=== PATIENT | male | born 1965 | race Caucasian/White ===

== ENCOUNTER → 2022-05-31 06:54 | Outpatient (CLI) | payer MEDICARE, MEDICAID, SELFPAY | PROVIDERS: PCP Nurse Practitioner Family; Visit Provider Nurse Practitioner Family | DX: R32 Unspecified urinary incontinence (principal) | CPT/HCPCS: 87086 ==

== ENCOUNTER → 2022-09-13 23:16 | Outpatient (CLI) | payer MEDICARE, MEDICAID, SELFPAY ==
[2022-09-13 17:49] LABS: Alanine Aminotransferase 15 U/L (12-78); Albumin Level 4.2 g/dl (3.5-5.0); Albumin/Globulin Ratio 1.5 (1.1-1.8); Alkaline Phosphatase 75 U/L (38-126); Anion Gap 12.7 mEq/L (5-15); Aspartate Amino Transferase 26 U/L (17-59); Bilirubin,Total 0.3 mg/dl (0.2-1.3); Blood Urea Nitrogen 16 mg/dl (9-20); Calcium 8.6 mg/dl (8.4-10.2); Carbon Dioxide 29 mmol/L (22.0-30.0); Chloride 103 mmol/L (98-107); Estimated Glomerular Filt Rate 140 ml/min (>60); GFR (African American) 170 ML/MIN (>60); Globulin 2.8 g/dL (1.3-3.2); Glucose 83 mg/dl (74-100); Potassium 3.7 mmoL/L (3.5-5.1); Sodium 141 mmol/L (136-145)
[2022-09-13 18:58] LABS: Basophils % 0.4 % (0.1-2.0); Eosinophils # 0.2 K/mm3 (0.0-0.4); Eosinophils % 3.1 % (0.1-12.0); Hematocrit 39.8 % (42.0-52.0); Hemoglobin 12.9 g/dL (14.1-18.0); Lymphocytes # 2.5 K/mm3 (0.7-4.5); Lymphocytes % 34.3 % (10-50); Mean Corpuscular HGB Conc 32.5 g/dL (31.8-35.4); Mean Corpuscular Hemoglobin 28.8 pg (27.0-31.2); Mean Corpuscular Volume 88.5 fl (80-94); Mean Platelet Volume 9.2 fl (7.4-10.4); Monocytes # 0.4 K/mm3 (0.1-1.0); Monocytes % 6.1 % (1.7-9.3); Neutrophils # 4.1 K/mm3 (1.8-7.8); Neutrophils % 56.2 % (37.0-80.0); Platelet Count 211 K/mm3 (142-424); Red Cell Distribution Width 14.5 % (11.5-17.5); White Blood Count 7.3 K/mm3 (4.8-10.8)
== END ==
PROVIDERS: PCP Family Medicine; Visit Provider Family Medicine
DX: Z01.818 Encounter for other preprocedural examination (principal)
CPT/HCPCS: 80053; 85025

== ENCOUNTER → 2023-02-27 11:53 | Outpatient (CLI) | payer MEDICARE, MEDICAID, SELFPAY ==
--- NOTE | 2023-02-27 11:58 | XR_ITS ---
FINAL REPORT CLINICAL HISTORY: left arm pain fell satur FINDINGS: Left shoulder Three views were obtained. There is a nondisplaced fracture of the distal 3rd clavicle. There is inferior subluxation of the humerus. Mild degenerative changes are present. There are chronic calcifications adjacent to the glenoid. IMPRESSION: Fracture as above. Reviewed, Interpreted and Dictated by Sami Puga III, MD Transcribed by Meghan Watkins Authenticated and [facility]
--- NOTE | 2023-02-27 11:58 | XR_ITS ---
FINAL REPORT CLINICAL HISTORY: left arm pain fell Saturday FINDINGS: Left elbow Four views were obtained. There is no acute fracture or dislocation. The joint spaces appear normal. No joint effusion is identified. No soft tissue abnormality is identified. IMPRESSION: No acute process. Reviewed, Interpreted and Dictated by Sami Puga III, MD Transcribed by Meghan Watkins Authenticated and [facility]
--- NOTE | 2023-02-27 11:58 | XR_ITS ---
FINAL REPORT CLINICAL HISTORY: left arm pain fell saturday FINDINGS: Left humerus Two views were obtained. Again identified is a fracture of the distal 3rd clavicle. There are mild degenerative changes of the shoulder and elbow. There is inferior subluxation of the humerus at the glenohumeral joint. IMPRESSION: Fracture as above. Reviewed, Interpreted and Dictated by Sami Puga III, MD Transcribed by Meghan Watkins Authenticated and [facility]
== END ==
PROVIDERS: PCP Family Medicine; Visit Provider Family Medicine
DX: M79.602 Pain in left arm (principal)
CPT/HCPCS: 73030; 73060; 73080

== ENCOUNTER → 2023-04-18 10:20 | Outpatient (CLI) | payer MEDICARE, MEDICAID, SELFPAY ==
--- NOTE | 2023-04-18 10:26 | XR_ITS ---
FINAL REPORT CLINICAL HISTORY: possible asspiration FINDINGS: TWO-VIEW CHEST The heart size is normal. The mediastinum is normal. There is minimal scarring in the right infrahilar region. There is no pneumothorax. IMPRESSION: No acute cardiopulmonary process. Reviewed, Interpreted and Dictated by Lopez Colorado MD Transcribed by Meghan Watkins Authenticated and [facility]
--- NOTE | 2023-04-18 10:26 | XR_ITS ---
FINAL REPORT CLINICAL HISTORY: Left clavicle fx COMPARISON: 02/27/2023 FINDINGS: 2 views of the left clavicle were obtained. There is persistent fracture deformity of the distal left clavicle. There is abundant callus formation now, particularly along the superior margin of the fracture. The acromioclavicular and glenohumeral joints appear intact. There is no soft tissue abnormality. IMPRESSION: Healing distal clavicle fracture with exuberant callus formation. Reviewed, Interpreted and Dictated by Lopez Colorado MD Transcribed by Naya Vazquez Authenticated and [facility]
--- NOTE | 2023-04-18 10:26 | XR_ITS ---
FINAL REPORT CLINICAL HISTORY: left shoulder pain FINDINGS: Left shoulder Three views were obtained. There is a mildly displaced vertical fracture of the distal clavicle. The AC joint is intact. There is widening of the subacromial space which may be due to a small joint effusion. IMPRESSION: Mildly displaced fracture of the distal clavicle. Reviewed, Interpreted and Dictated by Lopez Colorado MD Transcribed by Meghan Watkins Authenticated and [facility] [place]
== END ==
LOC: RAD 10:22
PROVIDERS: PCP Family Medicine; Visit Provider Orthopaedic Surgery
DX: T17.928A Food in respiratory tract, part unspecified causing other injury, initial encounter (principal); W44.F3XA Food entering into or through a natural orifice, initial encounter; S42.002A Fracture of unspecified part of left clavicle, initial encounter for closed fracture; M25.512 Pain in left shoulder
CPT/HCPCS: 71046; 73000; 73030

== ENCOUNTER → 2023-04-26 14:14 | Outpatient (CLI) | payer MEDICARE, MEDICAID, SELFPAY ==
--- NOTE | 2023-04-26 14:15 | CT_ITS ---
FINAL REPORT CLINICAL HISTORY: Encephalopathy FINDINGS: Axial images of the head were obtained without contrast. Coronal reformatted images were also obtained.This study was performed with techniques to keep radiation doses as low as reasonably achievable (ALARA). Individualized dose reduction techniques using automated exposure control or adjustment of mA and/or kV according to the patient's size were employed. Motion artifact on many of the images decreases the sensitivity. The ventricles are normal. There is no evidence of hemorrhage. There is no definite acute intracranial abnormality. IMPRESSION: Significantly limited exam. No gross abnormality identified. Reviewed, Interpreted and Dictated by Sami Puga III, MD Transcribed by Meghan Watkins Authenticated and [facility]
[2023-04-26 15:27] LABS: Basophils % 0.3 % (0.1-2.0); Eosinophils # 0.2 K/mm3 (0.0-0.4); Eosinophils % 1.3 % (0.1-12.0); Hematocrit 38.1 % (37.0-47.0); Hemoglobin 12.8 g/dL (12.2-16.2); Lymphocytes # 2.6 K/mm3 (0.7-4.5); Mean Corpuscular HGB Conc 33.6 g/dL (31.8-35.4); Mean Corpuscular Hemoglobin 29.2 pg (27.0-31.2); Mean Corpuscular Volume 86.9 fl (81-99); Mean Platelet Volume 8.3 fl (7.4-10.4); Monocytes # 0.8 K/mm3 (0.1-1.0); Monocytes % 7.1 % (1.7-9.3); Neutrophils # 7.7 K/mm3 (1.8-7.8); Neutrophils % 68.3 % (37.0-80.0); Platelet Count 188 K/mm3 (142-424); Red Blood Count 4.38 M/mm3 (4.20-5.40); Red Cell Distribution Width 14.5 % (11.5-17.5); White Blood Count 11.3 K/mm3 (4.8-10.8)
[2023-04-26 15:51] LABS: Chloride 105 mmol/L (98-107); Potassium 3.8 mmoL/L (3.5-5.1); Sodium 140 mmol/L (136-145)
[2023-04-26 17:11] LABS: Alanine Aminotransferase 13 U/L (12-78); Albumin Level 4.2 g/dl (3.5-5.0); Albumin/Globulin Ratio 1.4 (1.1-1.8); Alkaline Phosphatase 82 U/L (38-126); Anion Gap 12.8 mEq/L (5-15); Aspartate Amino Transferase 22 U/L (14-36); Bilirubin,Total 0.4 mg/dl (0.2-1.3); Blood Urea Nitrogen 10 mg/dl (7-17); Calcium 8.5 mg/dl (8.4-10.2); Carbon Dioxide 26 mmol/L (22.0-30.0); Estimated Glomerular Filt Rate 104 ml/min (>60); GFR (African American) 126 ML/MIN (>60); Globulin 2.9 g/dL (1.3-3.2); Glucose 99 mg/dl (74-100); Total Protein,Serum 7.1 g/dl (6.3-8.2)
[2023-04-26 17:42] LABS: Thyroid Stimulating Hormone 1.59 uIU/mL (0.465-4.68)
[2023-04-26 18:18] LABS: Vitamin B12 584 pg/mL (239-931)
[2023-04-26 18:27] LABS: Folate 8.24 ng/mL
[2023-04-26 18:33] LABS: Iron 20 ug/dL (37-170)
[2023-04-26 19:06] LABS: Total Iron Binding Capacity 233 ug/dL (265-497)
[2023-04-26 19:10] LABS: Ferritin 135 ng/ml (11.1-264)
== END ==
PROVIDERS: PCP Family Medicine; Visit Provider Nurse Practitioner Family
DX: G93.49 Other encephalopathy (principal); R53.83 Other fatigue; D51.9 Vitamin B12 deficiency anemia, unspecified
CPT/HCPCS: 36415; 70450; 80053; 82607; 82728; 82746; 83540; 83550; 84443; 85025

== ENCOUNTER → 2023-05-15 10:55 | Outpatient (CLI) | payer MEDICARE, MEDICAID, SELFPAY ==
--- NOTE | 2023-05-15 11:25 | XR_ITS ---
FINAL REPORT CLINICAL HISTORY: constipation FINDINGS: ABDOMEN SINGLE VIEW There is a nonspecific, nonobstructive bowel gas pattern. No bowel dilation is identified. There are gallstones in the right upper quadrant measuring up to 2.1 cm. A moderate amount of retained stool is seen throughout the colon. IMPRESSION: Moderate stool burden. Gallstones. Reviewed, Interpreted and Dictated by Lopez Colorado MD Transcribed by Meghan Watkins Authenticated and [facility]
[2023-05-15 11:26] LABS: Basophils % 0.3 % (0.1-2.0); Eosinophils # 0.2 K/mm3 (0.0-0.4); Eosinophils % 1.9 % (0.1-12.0); Hematocrit 41.3 % (37.0-47.0); Hemoglobin 13.8 g/dL (12.2-16.2); Lymphocytes # 1.7 K/mm3 (0.7-4.5); Lymphocytes % 17.6 % (10-50); Mean Corpuscular HGB Conc 33.4 g/dL (31.8-35.4); Mean Corpuscular Hemoglobin 28.9 pg (27.0-31.2); Mean Corpuscular Volume 86.6 fl (81-99); Mean Platelet Volume 8.1 fl (7.4-10.4); Monocytes # 0.5 K/mm3 (0.1-1.0); Monocytes % 4.8 % (1.7-9.3); Neutrophils # 7.4 K/mm3 (1.8-7.8); Neutrophils % 75.3 % (37.0-80.0); Platelet Count 211 K/mm3 (142-424); Red Blood Count 4.77 M/mm3 (4.20-5.40); Red Cell Distribution Width 14.3 % (11.5-17.5); White Blood Count 9.9 K/mm3 (4.8-10.8)
[2023-05-15 12:08] LABS: Alanine Aminotransferase 12 U/L (12-78); Albumin Level 4.5 g/dl (3.5-5.0); Albumin/Globulin Ratio 1.5 (1.1-1.8); Alkaline Phosphatase 83 U/L (38-126); Anion Gap 9.6 mEq/L (5-15); Aspartate Amino Transferase 23 U/L (14-36); Bilirubin,Total 0.4 mg/dl (0.2-1.3); Blood Urea Nitrogen 12 mg/dl (7-17); Calcium 8.6 mg/dl (8.4-10.2); Carbon Dioxide 29 mmol/L (22.0-30.0); Chloride 104 mmol/L (98-107); Estimated Glomerular Filt Rate 87 ml/min (>60); GFR (African American) 105 ML/MIN (>60); Glucose 81 mg/dl (74-100); Potassium 3.6 mmoL/L (3.5-5.1); Sodium 139 mmol/L (136-145); Total Protein,Serum 7.5 g/dl (6.3-8.2)
== END ==
LOC: LAB 10:57
PROVIDERS: PCP Family Medicine; Visit Provider Family Medicine
DX: K59.00 Constipation, unspecified (principal)
CPT/HCPCS: 36415; 74018; 80053; 85025

== ENCOUNTER 2023-05-23 08:08 | Outpatient (CLI) | payer MEDICARE, MEDICAID, SELFPAY ==
--- NOTE | 2023-05-23 08:19 | US_ITS ---
FINAL REPORT CLINICAL HISTORY: Gallstones COMPARISON: None FINDINGS: Sonographic images of the right upper quadrant were obtained. The pancreas is partially obscured. There is a hyperechoic focus in the left hepatic lobe which measures 1.3 cm in greatest diameter and is of uncertain etiology. Multiple gallstones are present in the gallbladder. There is no evidence of biliary ductal dilatation.The common duct measures 2 mm. Limited images of the right kidney are unremarkable. IMPRESSION: Gallstones are present, without evidence of biliary ductal dilatation. 1.3 cm hyperechoic focus in the left hepatic lobe, of uncertain etiology but may represent a hemangioma or a region of focal fatty infiltration. If indicated, CT with contrast would be helpful for further evaluation. Reviewed, Interpreted and Dictated by Sami Puga III, MD Transcribed by Lakeisha Beltrán Authenticated and [facility]
== END 2023-05-23 23:59 ==
PROVIDERS: PCP Family Medicine; Visit Provider Surgery
DX: K80.20 Calculus of gallbladder without cholecystitis without obstruction (principal)
CPT/HCPCS: 76705

== ENCOUNTER 2023-08-31 07:58 | Emergency (ER) | payer MEDICARE, MEDICAID, SELFPAY ==
[2023-08-31 08:00] VITALS: BP 179/136; PULSE 103; RESP 13; TEMP 36.8; O2SAT 95; BMI 27.3
[2023-08-31 08:29] VITALS: BP 179/136
--- NOTE | 2023-08-31 08:37 | ED_ITS ---
Discharge Plan Disposition Patient Disposition: Home, Self-Care Prescriptions Prescriptions: No Action hydrocortisone acetate [Anusol-HC] 25 mg suppository 25 mg MN BID PRN hydroxyzine HCl 50 mg tablet 50 mg PO BID 90 Days Qty: 180 0RF sertraline 100 mg tablet 200 mg PO DAILY Qty: 180 0RF trazodone 50 mg tablet 50 mg PO HS Qty: 90 0RF oxcarbazepine [Trileptal] 300 mg tablet 300 mg PO BID Qty: 180 0RF valacyclovir 1 gram tablet 1,000 mg PO BID Qty: 20 0RF loratadine 10 mg tablet 10 mg PO DAILY Patient Comments: TAKE 1 TABLET BY MOUTH EVERY DAY fluticasone propionate 50 mcg/actuation spray,suspension intranasal Patient Comments: USE 2 PUFFS IN EACH NOSTRIL EVERY DAY bisacodyl 10 mg suppository 10 mg MN DAILY PRN (Reason: constipation) Qty: 12 0RF acyclovir 5 % ointment 1 applic topical 6XD Qty: 5 2RF polyethylene glycol 3350 [Miralax] 17 gram/dose powder 17 g PO DAILY Qty: 510 0RF clonazepam 2 mg tablet 4 mg PO BID Qty: 120 2RF Referrals Follow up/Referrals: Walt Howell MD [Primary Care Provider] - See instructions Activity Restrictions/Add. Instructions Additional Instructions/Restrictions: Call Dr. Goldman's office for appointment on 09/02 for follow up and consideration for cholecystectomy (gallbladder removal). Call your family doctor to establish care for this visit to the emergency department and schedule follow-up within 48 hours to ensure improvement. If you have any worsening of your condition or any other concerning signs or symptoms, return to the emergency department or your primary care doctor for further evaluation. 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 Patient is on an medications will her behavioral outbursts, and patient, at baseline, intermittently calls out. For the past 2 or 3 days, family states that patient has been more aggressive, in her verbal outbursts. Patient's family also states patient has been having numerous episodes of urinary incontinence whether at night, during the day, does not matter. Talk to family doctor, family doctor recommended coming to the emergency department. No fevers, vomiting, changes in mental status, rash, color, breathing, or tone. Please note that above description of symptoms, in this electronic medical record under categorization of recalled from ER triage doctor by RN are reflective of an initial nursing assessment, however, is not reflective of my full history and physical exam that was personally taken and clarified. Consequentially, this preceding description of symptoms, which may include the patient's categorized chief complaint in the EMR, do not reflect my personal clinical impression, and the ultimate description of history of present illness and patient stated complaints should be deferred to this section of the note. Unless stated otherwise or congruent with this section of the note, additional signs, symptoms, or incongruence should be interpreted as inaccurate with my clinical impression. Related Data Home Medications Medication Instructions Recorded Confirmed fluticasone propionate 50 g intranasal 04/04/22 07/12/23 mcg/actuation nasal spray,suspension loratadine 10 mg tablet 10 mg PO DAILY 04/04/22 07/12/23 hydrocortisone acetate 25 mg 25 mg MN BID PRN 06/19/23 07/12/23 rectal suppository (Anusol-HC) Previous Rx's Medication Instructions Recorded bisacodyl 10 mg rectal suppository 10 mg MN DAILY PRN constipation 05/10/23 #12 ea acyclovir 5 % topical ointment 1 applic topical 6XD #5 grams 06/28/23 valacyclovir 1 gram tablet 1,000 mg PO BID #20 tabs 06/28/23 polyethylene glycol 3350 17 17 g PO DAILY constipation #510 07/01/23 gram/dose oral powder (Miralax) grams hydroxyzine HCl 50 mg tablet 50 mg PO BID 90 days #180 tabs 07/11/23 oxcarbazepine 300 mg tablet 300 mg PO BID #180 tabs 07/11/23 (Trileptal) sertraline 100 mg tablet 200 mg (2 x 100 mg) PO DAILY #180 07/11/23 tabs trazodone 50 mg tablet 50 mg PO HS #90 tabs 07/11/23 clonazepam 2 mg tablet 4 mg (2 x 2 mg) PO BID #120 tabs 08/26/23 Allergies Allergy/AdvReac Type Severity Reaction Status Date / Time aspirin AdvReac Adan's Verified 06/28/23 11:33 syndrome PFSH PFS Disclaimer: The information contained in this section may have been updated after the patient was seen, as this information can be updated by other users. Medical History Aspiration of food Autism Chronic static encephalopathy Surgical History History of dental surgery Family History Father Diabetes Heart attack Kidney disease Stroke Mother Diabetes Grandmother Diabetes Grandfather Diabetes Social History Smoking Status: Never smoker alcohol intake: never substance use type: denies use current occupational status: disabled Travel in the last 8 weeks: None household members: other details: sister housing: house ROS Obtained: Yes All systems reviewed & no additional complaints except as documented Physical Exam General General appearance: alert Head Head exam: atraumatic and normocephalic Eye Eye exam: Present normal appearance, PERRL and EOMI ENT ENT exam: Present mucous membranes moist and TM's normal bilaterally Neck Neck exam: Present normal inspection, full ROM and trachea midline Respiratory Respiratory exam: Present normal lung sounds bilaterally; Absent respiratory distress, wheezes, stridor, accessory muscle use or prolonged expiratory phase Cardiovascular Cardiovascular exam: Present regular rate and normal rhythm Abdominal Exam Abdominal exam: Present soft and tenderness (difficult to discern due to intermittent verbal outbursts); Absent distention, guarding, rebound or rigidity Extremities Exam Extremities exam: Absent edema Neurological Exam Neurological exam: Present alert and CN II-XII intact Skin Skin exam: Present warm and dry; Absent diaphoresis or erythema Lymphatic Lymphatic Findings: no adenopathy Medical Decision Making Medical Records Medical records reviewed: Yes I reviewed the patient's medical records. Damien Inquiry Pt receiving controlled substance: No Damien was queried for this patient: No Vital Signs: 08/31/23 08:00 08/31/23 08:29 08/31/23 08:47 Temperature 98.2 F Temperature Source Temporal Artery Scan Pulse Rate [Left Radial] 103 H Respiratory Rate 13 Blood Pressure 179/136 H 144/89 H Blood Pressure [Right Arm] 179/136 H Blood Pressure Mean 149 107 Blood Pressure Mean [Right Arm] 150 02 Sat by Pulse Oximetry 95 Oxygen Delivery Method Room Air Lab Data Lab Results 08/31/23 08:11: WBC Cancelled, Corrected WBC Cancelled, RBC Cancelled, Hgb Cancelled, Hct Cancelled, MCV Cancelled, MCH Cancelled, MCHC Cancelled, RDW Cancelled, Plt Count Cancelled, MPV Cancelled, Neut % (Auto) Cancelled, Lymph % (Auto) Cancelled, Foard % (Auto) Cancelled, Eos % (Auto) Cancelled, Baso % (Auto) Cancelled, Neut # (Auto) Cancelled, Lymph # (Auto) Cancelled, Foard # (Auto) Cancelled, Eos # (Auto) Cancelled, Baso # (Auto) Cancelled, Sodium Cancelled, Potassium Cancelled, Chloride Cancelled, Carbon Dioxide Cancelled, Anion Gap Cancelled, BUN Cancelled, Creatinine Cancelled, Estimated Creat Clear Cancelled, Estimated GFR Cancelled, Est GFR ( Amer) Cancelled, Glucose Cancelled, Calcium Cancelled, Total Bilirubin Cancelled, AST Cancelled, ALT Cancelled, Alkaline Phosphatase Cancelled, Total Protein Cancelled, Albumin Cancelled, Globulin Cancelled, Albumin/Globulin Ratio Cancelled 08/31/23 08:54: WBC 10.0, RBC 4.69, Hgb 13.6, Hct 43.4, MCV 92.6, MCH 29.1, MCHC 31.4 L, RDW 15.2, Plt Count 180, MPV 7.9, Neut % (Auto) 74.3, Lymph % (Auto) 17.0, Foard % (Auto) 6.6, Eos % (Auto) 1.2, Baso % (Auto) 0.9, Neut # (Auto) 7.4, Lymph # (Auto) 1.7, Foard # (Auto) 0.7, Eos # (Auto) 0.1, Baso # (Auto) 0.1, Sodium 141, Potassium 3.7, Chloride 106, Carbon Dioxide 30, Anion Gap 8.7, BUN 14, Creatinine 0.70, Estimated Creat Clear 91, Estimated GFR 87, Est GFR ( Amer) 105, Glucose 94, Lactate 1.1, Calcium 9.5, Total Bilirubin 0.5, AST 34, ALT 24, Alkaline Phosphatase 89, Total Protein 7.4, Albumin 4.4, Globulin 3.0, Albumin/Globulin Ratio 1.5, Lipase 55, Urine Color Yellow, Urine Appearance Clear, Urine pH 6.0, Ur Specific [place] 1.020, Urine Protein Negative, Urine Glucose (UA) Negative, Urine Ketones Negative, Urine Blood Trace-i, Urine Nitrate Negative, Urine Bilirubin Negative, Urine Urobilinogen 0.2, Ur Leukocyte Esterase Negative, Urine RBC 5-10, Urine WBC 3-5, Ur Squamous Epith Cells 3-5, Urine Bacteria 1+, Urine Mucus 3+ 08/31/23 08:54 08/31/23 08:54 Orders (Tests/Meds): ORDERS Category Date Time Status POCUS Point of Care (ER Only) Stat Exams 08/31/23 09:21 Ordered Complete Blood Count Auto Diff Stat Lab 08/31/23 08:54 Completed Comprehensive Metabolic Panel Stat Lab 08/31/23 08:54 Completed Lactic Acid Stat Lab 08/31/23 08:54 Completed Lipase Stat Lab 08/31/23 08:54 Completed UA [Urinalysis and Microscopic] Stat Lab 08/31/23 08:54 Completed Medical Decision Narrative: Is a 52-year-old female 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 Patient is on an medications will her behavioral outbursts, and patient, at baseline, intermittently calls out. For the past 2 or 3 days, family states that patient has been more aggressive, in her verbal outbursts. Patient's family also states patient has been having numerous episodes of urinary incontinence whether at night, during the day, does not matter. Talk to family doctor, family doctor recommended coming to the emergency department. No fevers, vomiting, changes in mental status, rash, color, breathing, or tone. H&P noted the patient does have chronic encephalopathy which is complicating clinical picture and care. History was obtained via conversation with patient's family. On arrival, patient hemodynamically stable, alert, intermittently having verbal outbursts, but appears comfortable, moving all extremities spontaneously, pupils equal and reactive to light. Full physical exam performed and significant for well- appearing patient. Not acutely ill. Intermittently having verbal outbursts. No cough, fever, lymphadenopathy. TMs are clear bilaterally, no pharyngeal erythema, no lymphadenopathy, lungs are clear to auscultation, abdomen is soft, nontender, nondistended, no evidence of peritonitis, but difficult to truly ascertain tenderness due to intermittent verbal outburst. Not having outbursts in any 1 spot in particular. No overlying skin changes, no rash, overall well- appearing. Differential includes urinary tract infection, cholecystitis, . Workup independently interpreted and significant for nonactionable CBC or chemistry. Urinalysis negative. Bedside [id number] ultrasound without acute concern for cholecystitis, but patient does have 1.5 cm stone, upper limit of normal gallbladder wall. No secondary signs of cholecystitis. Duct normal. On reevaluation, patient walking around the room, appropriate, does not appear to be in any acute distress. General surgery on-call was contacted and case was discussed at length. He had seen patient in the past, family is not pursuing cholecystectomy at that time, but in light of recent events, considering strongly now. I feel this is appropriate. Interactive discussion had, patient to see general surgery next week for follow-up. On further conversation, is also revealed the patient has had numerous changes and her daily life including staff changes, toys, and other things, which could have likely exacerbated patient's emotional changes and outbursts, as these changes in her behavior started right around the time that the life changes occurred. Because patient at baseline without signs or symptoms of clinical decompensation, deemed appropriate for discharge. Results were relayed to patient family who voiced understanding and were agreeable to outpatient management and follow up. I discussed my clinical impression with patient family and answered all questions. At this time, the evidence for any other entities in the differential is insufficient to warrant any further testing or ED observation. This was explained as well. Advisory was given that persistent or worsening symptoms require further evaluation. I confirmed the understanding of this discussion. Critical Care Critical Care Time Critical Care Time: No
[2023-08-31 08:47] VITALS: BP 144/89
[2023-08-31 09:05] LABS: Microscopic, Urine URINE MICROSCOPIC (MICROSCOPIC)
[2023-08-31 09:06] LABS: Basophils # 0.1 K/mm3 (0-0.2); Basophils % 0.9 % (0.1-2.0); Eosinophils # 0.1 K/mm3 (0.0-0.4); Eosinophils % 1.2 % (0.1-12.0); Hematocrit 43.4 % (37.0-47.0); Hemoglobin 13.6 g/dL (12.2-16.2); Lymphocytes # 1.7 K/mm3 (0.7-4.5); Mean Corpuscular HGB Conc 31.4 g/dL (31.8-35.4); Mean Corpuscular Hemoglobin 29.1 pg (27.0-31.2); Mean Corpuscular Volume 92.6 fl (81-99); Mean Platelet Volume 7.9 fl (7.4-10.4); Monocytes # 0.7 K/mm3 (0.1-1.0); Monocytes % 6.6 % (1.7-9.3); Neutrophils # 7.4 K/mm3 (1.8-7.8); Neutrophils % 74.3 % (37.0-80.0); Platelet Count 180 K/mm3 (142-424); Red Blood Count 4.69 M/mm3 (4.20-5.40); Red Cell Distribution Width 15.2 % (11.5-17.5)
[2023-08-31 09:09] LABS: Appearance,Urine CLEAR (Clear); Bilirubin,Urine Negative (Negative); Blood, Urine TRACE-I (Negative); Color,Urine YELLOW (Yellow); Glucose,Urine (UA) Negative (Negative); Ketones,Urine Negative (Negative); Leukocyte Esterase,Urine Negative (Negative); Nitrate,Urine Negative (Negative); Protein,Urine Negative (Negative); Urobilinogen,Urine 0.2 EU/dl (0.2)
[2023-08-31 09:15] LABS: Chloride 106 mmol/L (98-107); Sodium 141 mmol/L (136-145)
[2023-08-31 09:16] LABS: Potassium 3.7 mmoL/L (3.5-5.1)
[2023-08-31 09:18] LABS: Alanine Aminotransferase 24 U/L (12-78); Albumin Level 4.4 g/dl (3.5-5.0); Albumin/Globulin Ratio 1.5 (1.1-1.8); Alkaline Phosphatase 89 U/L (38-126); Anion Gap 8.7 mEq/L (5-15); Aspartate Amino Transferase 34 U/L (14-36); Bilirubin,Total 0.5 mg/dl (0.2-1.3); Blood Urea Nitrogen 14 mg/dl (7-17); Calcium 9.5 mg/dl (8.4-10.2); Carbon Dioxide 30 mmol/L (22.0-30.0); Creatinine Clearance Estimated 91 mL/min (50-200); Estimated Glomerular Filt Rate 87 ml/min (>60); GFR (African American) 105 ML/MIN (>60); Glucose 94 mg/dl (74-100); Lactic Acid 1.1 mmol/L (0.7-2.1); Total Protein,Serum 7.4 g/dl (6.3-8.2)
[2023-08-31 09:33] LABS: Lipase 55 U/L (23-300)
[2023-08-31 09:35] LABS: Mucus,Urine 3+ /lpf
[2023-08-31 09:38] LABS: Bacteria,Urine 1+ /lpf
[2023-08-31 10:00] VITALS: BP 144/89; PULSE 103; RESP 13; TEMP 36.8; O2SAT 98
== END 2023-08-31 10:02 | disposition home or self-care (01) ==
PROVIDERS: Emergency Provider Emergency Medicine; PCP Family Medicine
DX: K80.20 Calculus of gallbladder without cholecystitis without obstruction (principal); R10.9 Unspecified abdominal pain; R45.89 Other symptoms and signs involving emotional state; F79 Unspecified intellectual disabilities
CPT/HCPCS: 80053; 81001; 83605; 83690; 85025; 99284

== ENCOUNTER 2024-01-05 09:07 | Emergency (ER) | payer MEDICARE, MEDICAID, SELFPAY ==
[2024-01-05 09:11] VITALS: BP 131/86
[2024-01-05 09:14] VITALS: BP 131/86; PULSE 89; RESP 20; TEMP 36.7; O2SAT 96; BMI 25.4
--- NOTE | 2024-01-05 09:19 | PC.NURSE ---
Dr. Olson at [facility] for pt eval
--- NOTE | 2024-01-05 09:27 | CT_ITS ---
PROCEDURE INFORMATION: Exam: CT Chest With Contrast; Diagnostic Exam date and time: 01/05/2024 10:09 AM Age: 58 years old Clinical indication: Other: Not eating/drinking; Additional info: Nonverbal, not eating/drinking, decreased bm TECHNIQUE: Imaging protocol: Diagnostic computed tomography of the chest with contrast. Radiation optimization: All CT scans at this facility use at least one of these dose optimization techniques: automated exposure control; mA and/or kV adjustment per patient size (includes targeted exams where dose is matched to clinical indication); or iterative reconstruction. Contrast material: ISOVUE; Contrast volume: 80 ml; Contrast route: IV; COMPARISON: CR XR CHEST 2V 04/18/2023 10:35 AM FINDINGS: Lungs: Mild left basilar atelectasis. No consolidation. No masses. Pleural spaces: Unremarkable. No pneumothorax. No pleural effusion. Heart: Unremarkable. No cardiomegaly. No pericardial effusion. Lymph nodes: Unremarkable. No enlarged lymph nodes. Vasculature: Unremarkable. No aortic aneurysm. Diaphragm: Moderate size hiatal hernia. Bones/joints: Unremarkable. No acute fracture. Soft tissues: Unremarkable. IMPRESSION: Moderate size hiatal hernia.
--- NOTE | 2024-01-05 09:27 | CT_ITS ---
PROCEDURE INFORMATION: Exam: CT Abdomen And Pelvis With Contrast Exam date and time: 01/05/2024 10:09 AM Age: 58 years old Clinical indication: Constipation; Additional info: Nonverbal, not eating/drinking, decreased bm TECHNIQUE: Imaging protocol: Computed tomography of the abdomen and pelvis with contrast. Radiation optimization: All CT scans at this facility use at least one of these dose optimization techniques: automated exposure control; mA and/or kV adjustment per patient size (includes targeted exams where dose is matched to clinical indication); or iterative reconstruction. Contrast material: ISOVUE; Contrast volume: 80 ml; Contrast route: IV; COMPARISON: CR XR KUB 05/15/2023 11:43 AM FINDINGS: Diaphragm: Moderate size hiatal hernia. Liver: Small cyst or hemangioma in the right hepatic lobe measures 1.1 cm. Gallbladder and biliary ducts: Cholelithiasis with multiple large gallstones. No gallbladder wall thickening. Pancreas: Normal. No ductal dilation. Spleen: Normal. No splenomegaly. Adrenal glands: Normal. No mass. Kidneys and ureters: Normal. No hydronephrosis. Stomach and bowel: Negative for bowel obstruction. Appendix: No evidence of appendicitis. Intraperitoneal space: Unremarkable. No free air. No significant fluid collection. Vasculature: Unremarkable. No abdominal aortic aneurysm. Lymph nodes: Unremarkable. No enlarged lymph nodes. Urinary bladder: Unremarkable as visualized. Reproductive: Unremarkable as visualized. Bones/joints: Unremarkable. No acute fracture. Soft tissues: Unremarkable. IMPRESSION: 1. Cholelithiasis with multiple large gallstones. No gallbladder wall thickening. 2. Moderate size hiatal hernia. 3. Negative for bowel obstruction.
--- NOTE | 2024-01-05 09:32 | ED_ITS ---
Discharge Plan Disposition Patient Disposition: Home, Self-Care Condition: Good Prescriptions Prescriptions: New pantoprazole 40 mg tablet,delayed release (DR/EC) 40 mg PO DAILY Qty: 30 0RF No Action trazodone 50 mg tablet 50 mg PO HS Qty: 90 0RF loratadine 10 mg tablet 10 mg PO DAILY Patient Comments: TAKE 1 TABLET BY MOUTH EVERY DAY fluticasone propionate 50 mcg/actuation spray,suspension intranasal Patient Comments: USE 2 PUFFS IN EACH NOSTRIL EVERY DAY polyethylene glycol 3350 [Miralax] 17 gram/dose powder 17 g PO DAILY Qty: 510 0RF sertraline 100 mg tablet 200 mg PO DAILY Qty: 180 0RF acyclovir 5 % ointment See Rx Instructions .ROUTE .COMPLEX Qty: 15 1RF Dose Instruction: APPLY TO AFFECTED AREA(S) SIX TIMES A DAY Rx Instructions: APPLY TO AFFECTED AREA(S) SIX TIMES A DAY clonazepam 2 mg tablet 4 mg PO BID Qty: 120 2RF acyclovir 800 mg tablet 800 mg PO QID Qty: 60 2RF hydroxyzine HCl 50 mg tablet 50 mg PO BID 90 Days Qty: 180 0RF Referrals Follow up/Referrals: Sami Goldman MD [Staff Physician] - See instructions Walt Howell MD [Primary Care Provider] - See instructions Reginald Garcia MD [Staff Physician] - See instructions Activity Restrictions/Add. Instructions Additional Instructions/Restrictions: This patient was evaluated in the emergency department today. At this time, workup is reassuring. She does persistently still have gallstones, however no evidence of acute gallbladder infection. This certainly could cause pain and poor appetite, so I would recommend close follow-up with general surgery for further evaluation and management. She also has a small hiatal hernia, which can cause acid reflux type symptoms and indigestion. This also could cause poor appetite. Given this, we are prescribing her a medication for stomach acid. 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 Follow-up very closely with her primary care provider for reassessment. Her full respiratory panel is pending at this time. Return to the emergency department for new or worsening symptoms. Clinical Impressions Clinical Impression: Gallstones, Poor appetite, Hiatal hernia Instructions Patient Instructions: DI for Hiatal Hernia, DI for Nausea -- Adult, DI for Poor Appetite Print Language Print Language: Sammarinese Discharge ED Provider: Tran Olson General Adult HPI General Chief complaint: Nausea/Vomiting/Diarrhea Stated complaint: unable to eat for a week Time Seen by Provider: 01/05/24 09:11 Mode of Arrival: Ambulatory Source of Information: Relative Limitations: Language Barrier Description of Symptoms (Recalled from ER Triage Doc. by RN): pt to ed accompanied by sister and [id number]. sister states pt has not been interested in food x1 week and has been spitting up. sister reports a decrease in bowel movements. sister reports to giving pt a laxative with no improvement of symptoms. pt is non-verbal. 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 According to the patient's sister and caregiver, she has not wanted to eat in the last 5 days. She initially was still drinking, but her oral intake of liquids is also decreased. They state it seems like she has an appetite and will ask for food, but she has had very little intake. They noted concern for decreased bowel movements and small amount of leakage of liquid brown stool, concerned that she could have a bowel blockage. No prior surgical abdominal history noted. She does have history of gallstones, for which she has been seen by general surgery and in the emergency department, but they elected not to pursue surgery, as the patient never had diagnosis of cholecystitis. Throughout this time, she has not had any fevers, obvious changes in her neuro/functional status/behavior, cough, congestion. She has had frequent spitting up, but no vomiting. They noted concern because she has a history of swallowing difficulty as well. For her chronic constipation, they do laxatives, enemas, suppositories at home but they have not been able to get her to have a good bowel movement Related Data Home Medications ?Medication ?Instructions ?Recorded ?Confirmed fluticasone propionate 50 g intranasal 04/04/22 09/20/23 mcg/actuation nasal spray,suspension loratadine 10 mg tablet 10 mg PO DAILY 04/04/22 09/20/23 Previous Rx's ?Medication ?Instructions ?Recorded trazodone 50 mg tablet 50 mg PO HS #90 tabs 07/11/23 polyethylene glycol 3350 17 17 g PO DAILY constipation #510 09/10/23 gram/dose oral powder (Miralax) grams sertraline 100 mg tablet 200 mg (2 x 100 mg) PO DAILY #180 11/15/23 tabs acyclovir 5 % topical ointment See Rx Instructions .Route 11/18/23 .COMPLEX #15 grams clonazepam 2 mg tablet 4 mg (2 x 2 mg) PO BID #120 tabs 11/26/23 acyclovir 800 mg tablet 800 mg PO QID #60 tabs 12/09/23 hydroxyzine HCl 50 mg tablet 50 mg PO BID 90 days #180 tabs 12/24/23 pantoprazole 40 mg tablet,delayed 40 mg PO DAILY #30 tabs 01/05/24 release Allergies Allergy/AdvReac Type Severity Reaction Status Date / Time aspirin AdvReac Adan's Verified 09/20/23 11:25 syndrome PFSH PFS Disclaimer: The information contained in this section may have been updated after the patient was seen, as this information can be updated by other users. Medical History Aspiration of food Chronic static encephalopathy Autism Surgical History History of dental surgery Family History Father Diabetes Heart attack Kidney disease Stroke Mother Diabetes Grandmother Diabetes Grandfather Diabetes Social History Smoking Status: Never smoker alcohol intake: never substance use type: denies use current occupational status: disabled Travel in the last 8 weeks: None household members: other details: sister housing: house ROS Obtained: Yes All systems reviewed & no additional complaints except as documented Physical Exam General General appearance: alert Comment: Groaning verbally, which family states is her normal stim Head Head exam: atraumatic and normocephalic Eye Eye exam: Present normal appearance, PERRL and EOMI ENT ENT exam: Present normal exam, normal oropharynx, mucous membranes moist and normal external ear exam Neck Neck exam: Present normal inspection, full ROM and trachea midline; Absent tenderness Chest Chest inspection: Present normal inspection and symmetric chest wall rise; Absent tenderness Respiratory Respiratory exam: Present normal lung sounds bilaterally; Absent respiratory distress, wheezes, stridor or accessory muscle use Cardiovascular Cardiovascular exam: Present regular rate and normal rhythm Abdominal Exam Abdominal exam: Present soft and distention (mild); Absent tenderness, guarding or rebound Extremities Exam Extremities exam: Present normal inspection, full ROM and normal capillary refill; Absent tenderness or edema Back Exam Back exam: Present normal inspection and full ROM; Absent tenderness Neurological Exam Neurological exam: Present alert and other (reportedly at her neurologic baseline); Absent motor sensory deficit Skin Skin exam: Present warm and dry Medical Decision Making Medical Records Medical records reviewed: Yes I reviewed the patient's medical records. Damien Inquiry Pt receiving controlled substance: No Vital Signs: 01/05/24 09:11 01/05/24 09:14 01/05/24 10:00 Temperature 98.1 F Temperature Source Oral Pulse Rate Pulse Rate [Left Radial] 89 Respiratory Rate 20 Blood Pressure 131/86 140/78 Blood Pressure [Right Arm] 131/86 Blood Pressure Mean 91 98 Blood Pressure Mean [Right Arm] 101 02 Sat by Pulse Oximetry 96 Oxygen Delivery Method Room Air 01/05/24 11:30 01/05/24 12:11 Temperature 98.1 F Temperature Source Pulse Rate 88 Pulse Rate [Left Radial] Respiratory Rate 20 Blood Pressure 99/67 L 105/71 L Blood Pressure [Right Arm] Blood Pressure Mean 77 Blood Pressure Mean [Right Arm] 02 Sat by Pulse Oximetry Oxygen Delivery Method Lab Data Lab results reviewed: Yes I reviewed the patient's lab results. Lab Results 01/05/24 09:24: SARS-CoV-2 (PCR) Not detected, Influenza A Untype (PCR) Not detected, Influenza Type B (PCR) Not detected 01/05/24 09:34: WBC 8.2, RBC 4.80, Hgb 13.5, Hct 43.4, MCV 90.5, MCH 28.1, MCHC 31.1 L, RDW 14.5, Plt Count 201, MPV 8.3, Neut % (Auto) 75.9, Lymph % (Auto) 16.9, [place] % (Auto) 4.8, Eos % (Auto) 1.6, Baso % (Auto) 0.7, Neut # (Auto) 6.3, Lymph # (Auto) 1.4, [place] # (Auto) 0.4, Eos # (Auto) 0.1, Baso # (Auto) 0.1, Sodium 140, Potassium 3.9, Chloride 108 H, Carbon Dioxide 28, Anion Gap 7.9, BUN 13, Creatinine 0.80, Estimated Creat Clear 73, Estimated GFR 74, Est GFR ( Amer) 90, Glucose 89, Lactate 0.9, Calcium 9.0, Magnesium 1.9, Total Bilirubin 0.6, AST 31, ALT 19, Alkaline Phosphatase 70, Total Protein 7.3, Albumin 4.3, Globulin 3.0, Albumin/Globulin Ratio 1.4, Lipase 44 01/05/24 10:25: Group A Strep Rapid Negative 01/05/24 10:30: Urine Color Yellow, Urine Appearance Clear, Urine pH 6.0, Ur Specific Ledger 1.020, Urine Protein Negative, Urine Glucose (UA) Negative, Urine Ketones Negative, Urine Blood Negative, Urine Nitrate Negative, Urine Bilirubin Negative, Urine Urobilinogen 0.2, Ur Leukocyte Esterase Negative, Urine RBC None, Urine WBC None, Ur Squamous Epith Cells Occasional, Urine Bacteria None 01/05/24 09:34 01/05/24 09:34 Orders (Tests/Meds): ED MEDICATIONS Discontinued Medications Generic Name Dose Route Start Last Admin Trade Name Freq PRN Reason Stop Dose Admin Lactated Ringer's 1,000 mls @ 999 mls/hr 01/05/24 09:24 01/05/24 10:45 Lactated Ringer's 1000 Ml Bag IV 01/05/24 10:24 999 mls/hr .Q1H1M ONE Administration Iopamidol 80 ml 01/05/24 10:29 01/05/24 10:30 Iopamidol-370 (76%);100ml Bottle IV 01/05/24 10:30 80 ml ONCE ONE Administration Lorazepam 1 mg 01/05/24 09:24 01/05/24 10:13 Lorazepam 2mg/Ml Vial IV 01/05/24 09:25 1 mg ONCE ONE Administration Ondansetron HCl 4 mg 01/05/24 11:06 01/05/24 11:22 Ondansetron 4mg/2ml Vial IV 01/05/24 11:07 4 mg ONCE ONE Administration Pantoprazole Sodium 40 mg 01/05/24 11:06 01/05/24 11:22 Pantoprazole 40mg Vial IV 01/05/24 11:07 40 mg ONCE ONE Administration Sodium Chloride 10 ml 01/05/24 09:24 Sodium Chloride 0.9% 10ml Vial IV 02/04/24 09:23 NEEDED PRN to Dilute Lorazepam inj Sodium Chloride 10 ml 01/05/24 10:29 01/05/24 10:30 Sodium Chloride 0.9% 10ml Syr (Rad Only) IV 02/04/24 10:28 10 ml NEEDED PRN Administration Maintain IV Site Sodium Chloride 10 ml 01/05/24 11:06 Sodium Chloride 0.9% 10ml Vial IV 02/04/24 11:05 NEEDED PRN dilute protonix ORDERS Category Date Time Status CT abdomen pelvis w con Stat Cat Scan 01/05/24 09:[address] chest w con Stat Cat Scan 01/05/24 09:27 Completed CBC w/Auto Diff [Complete Blood Count Auto Diff] Stat Lab 01/05/24 09:34 Completed CMP [Comprehensive Metabolic Panel] Stat Lab 01/05/24 09:34 Completed Full Resp Panel w/COVID ([facility]) Routine Lab 01/05/24 10:25 Received Lactic Acid Stat Lab 01/05/24 09:34 Completed Lipase Stat Lab 01/05/24 09:34 Completed Magnesium Stat Lab 01/05/24 09:34 Completed Rapid PCR Covid and Flu A/B Stat Lab 01/05/24 09:24 Completed Strep Scrn Group A (Rapid) Stat Lab 01/05/24 10:25 Completed UA [Urinalysis and Microscopic] Stat Lab 01/05/24 10:30 Completed Strep Screen Confirmation Stat Micro 01/05/24 10:25 Received Urine Culture Stat Micro 01/05/24 10:30 Received Medical Decision Narrative: In summary, this patient is a 58-year-old female presenting to the Emergency Department for evaluation of decreased oral intake, decreased bowel movement. Differential diagnoses considered include but are not limited to fecal impaction, ileus, bowel obstruction, cholecystitis, cholelithiasis, pneumonia, viral syndrome, urinary tract infection. Ruling out the most morbid conditions drove assessment. It should be noted patient's history includes encephalopathy 2/2 Adan's syndrome with resultant nonverbal status. This complicates all aspects of care by increasing patient's risk for morbidity. I reviewed patient's past medical records and noted previous evaluations by general surgery for gallstones as well as in the emergency department for abdominal pain in the past. On exam, the patient is lying in bed in no acute distress and is reportedly at her baseline. She is doing her typical verbal stims. She does have mild abdominal distention on my assessment but no obvious tenderness noted. workup included CBC, CMP, lipase, lactic acid, viral swab, urinalysis, urine culture, CT chest, abdomen and pelvis with IV contrast. She was given a bolus of IV fluids. For help with CT scan, she was given 1 mg of IV Ativan. I independently interpreted CT scan prior to the radiologist read and noted no obvious bowel obstruction and no obvious large focal pneumonia. Please see their read for final interpretation. They noted gallstones without secondary findings concerning for cholecystitis. They also noted hiatal hernia. Labs were obtained that demonstrated no acutely concerning abnormalities with no leukocytosis, normal liver enzymes, normal lipase, normal kidney function, no electrolyte derangements. Urine is not concerning for infection. On reassessment, patient is lying in bed in no acute distress and remains at her baseline. At this time, it is unclear why she has a decrease in appetite. Family requests strep swabs, so this was added on. I also changed her COVID/flu swab to a full respiratory panel at the request. It is possible her symptoms could be related to indigestion/acid reflux type symptoms from her hiatal hernia, so I gave her pantoprazole and Zofran. It could be related to her gallstones if she has symptomatic cholelithiasis, but at this time there is no indication for emergent gallbladder evaluation. Will assess the patient's ability to tolerate oral intake prior to discharge Strep swab obtained and negative. Ultimately, patient felt to be appropriate for discharge home with close outpatient follow-up with general surgery as well as primary care. Prescription for PPI was given given her hiatal hernia and concern for potential GI upset. Strict return precautions were given. Patient was discharged after all questions were answered Critical Care Critical Care Time Critical Care Time: No
[2024-01-05 09:58] LABS: Albumin Level 4.3 g/dl (3.5-5.0); Chloride 108 mmol/L (98-107)
[2024-01-05 09:59] LABS: Potassium 3.9 mmoL/L (3.5-5.1); Sodium 140 mmol/L (136-145)
[2024-01-05 10:00] VITALS: BP 140/78
[2024-01-05 10:01] LABS: Alanine Aminotransferase 19 U/L (12-78); Albumin/Globulin Ratio 1.4 (1.1-1.8); Alkaline Phosphatase 70 U/L (38-126); Anion Gap 7.9 mEq/L (5-15); Aspartate Amino Transferase 31 U/L (14-36); Bilirubin,Total 0.6 mg/dl (0.2-1.3); Blood Urea Nitrogen 13 mg/dl (7-17); Carbon Dioxide 28 mmol/L (22.0-30.0); Creatinine Clearance Estimated 73 mL/min (50-200); Estimated Glomerular Filt Rate 74 ml/min (>60); GFR (African American) 90 ML/MIN (>60); Glucose 89 mg/dl (74-100); Lactic Acid 0.9 mmol/L (0.7-2.1); Lipase 44 U/L (23-300); Total Protein,Serum 7.3 g/dl (6.3-8.2)
[2024-01-05 10:02] LABS: Magnesium 1.9 mg/dl (1.6-2.3)
[2024-01-05 10:05] LABS: Basophils # 0.1 K/mm3 (0-0.2); Basophils % 0.7 % (0.1-2.0); Eosinophils # 0.1 K/mm3 (0.0-0.4); Eosinophils % 1.6 % (0.1-12.0); Hematocrit 43.4 % (37.0-47.0); Hemoglobin 13.5 g/dL (12.2-16.2); Lymphocytes # 1.4 K/mm3 (0.7-4.5); Lymphocytes % 16.9 % (10-50); Mean Corpuscular HGB Conc 31.1 g/dL (31.8-35.4); Mean Corpuscular Hemoglobin 28.1 pg (27.0-31.2); Mean Corpuscular Volume 90.5 fl (81-99); Mean Platelet Volume 8.3 fl (7.4-10.4); Monocytes # 0.4 K/mm3 (0.1-1.0); Monocytes % 4.8 % (1.7-9.3); Neutrophils # 6.3 K/mm3 (1.8-7.8); Neutrophils % 75.9 % (37.0-80.0); Platelet Count 201 K/mm3 (142-424); Red Cell Distribution Width 14.5 % (11.5-17.5); White Blood Count 8.2 K/mm3 (4.8-10.8)
[2024-01-05 10:07] LABS: Coronavirus 19, PCR Not Detected (NotDetected); Influenza A, PCR Not Detected (NotDetected); Influenza B, PCR Not Detected (NotDetected)
[2024-01-05] MEDS: LORazepam 2MG/ML VIAL 1 MG IV (10:13)
--- NOTE | 2024-01-05 10:15 | PC.NURSE ---
Pt gone to RAD via stretcher
--- NOTE | 2024-01-05 10:23 | PC.NURSE ---
Pt returned to room from RAD
[2024-01-05] MEDS: IOPAMIDOL-370 (76%);100ML BOTTLE 80 ML IV (10:30)
[2024-01-05] MEDS: SODIUM CHLORIDE 0.9% 10ML SYR (RAD ONLY) 10 ML IV (10:30)
[2024-01-05 10:35] LABS: Microscopic, Urine URINE MICROSCOPIC (MICROSCOPIC)
[2024-01-05 10:40] LABS: Appearance,Urine CLEAR (Clear); Bilirubin,Urine Negative (Negative); Blood, Urine Negative (Negative); Color,Urine YELLOW (Yellow); Glucose,Urine (UA) Negative (Negative); Ketones,Urine Negative (Negative); Leukocyte Esterase,Urine Negative (Negative); Nitrate,Urine Negative (Negative); Protein,Urine Negative (Negative); Urobilinogen,Urine 0.2 EU/dl (0.2)
[2024-01-05] MEDS: LACTATED RINGERS 1000ML 1,000 ML 999 ML IV (10:45)
[2024-01-05 10:50] LABS: Squamous Epithelial Cell,Urine Occasional #/hpf (0-5)
--- NOTE | 2024-01-05 11:16 | PC.NURSE ---
Dr. Olson at to update family on results and POC
[2024-01-05] MEDS: PANTOPRAZOLE 40MG VIAL 40 MG IV (11:22)
[2024-01-05] MEDS: ONDANSETRON 4MG/2ML VIAL 4 MG IV (11:22)
--- NOTE | 2024-01-05 11:27 | PC.NURSE ---
LAB notified of full resp. order
[2024-01-05 11:29] LABS: Adenovirus,PCR Not Detected (NotDetected); Bordetella Pertussis Not Detected (NotDetected); Chlamydophila Pneumoniae, PCR Not Detected (NotDetected); Coronavirus 19, PCR Not Detected (NotDetected); Coronavirus 229E Not Detected (NotDetected); Coronavirus NL63 Not Detected (NotDetected); Coronavirus OC43 Not Detected (NotDetected); Coronovirus HKU1,PCR Not Detected (NotDetected); Human Metapneumovirus Not Detected (NotDetected); Influenza A, PCR Not Detected (NotDetected); Influenza AH1, 2009 Not Detected (NotDetected); Influenza AH1, PCR Not Detected (NotDetected); Influenza AH3,PCR Not Detected (NotDetected); Influenza B, PCR Not Detected (NotDetected); Mycoplasma Pneumoniae, PCR Not Detected (NotDetected); Parainfluenza 1, PCR Not Detected (NotDetected); Parainfluenza 2, PCR Not Detected (NotDetected); Parainfluenza 3, PCR Not Detected (NotDetected); Parainfluenza 4, PCR Not Detected (NotDetected); Respiratory Syncytial Virus Not Detected (NotDetected); Rhinovirus/Enterovirus Not Detected (NotDetected)
[2024-01-05 11:30] VITALS: BP 99/67
[2024-01-05 11:38] LABS: Strep Scrn Group A (Rapid) Negative (Negative)
[2024-01-05 12:11] VITALS: BP 105/71; PULSE 88; RESP 20; TEMP 36.7; O2SAT 97
== END 2024-01-05 12:12 | disposition home or self-care (01) ==
PROVIDERS: Emergency Provider Emergency Medicine; PCP Family Medicine
DX: K80.20 Calculus of gallbladder without cholecystitis without obstruction (principal); K44.9 Diaphragmatic hernia without obstruction or gangrene; R63.0 Anorexia; F79 Unspecified intellectual disabilities; F84.0 Autistic disorder
CPT/HCPCS: 71260; 74177; 80053; 81001; 83605; 83690; 83735; 85025; 87086; 87430; 87581; 87632; 87635; 87636; 87798; 96361; 96374; 96375; 99285; J2060; J2405; J7120; Q9967

== ENCOUNTER 2024-06-29 10:52 | Emergency (ER) | payer MEDICARE, MEDICAID, SELFPAY ==
[2024-06-29 11:19] VITALS: BP 106/65; PULSE 112; O2SAT 94
[2024-06-29 11:23] VITALS: BP 134/112; PULSE 90; O2SAT 95
[2024-06-29 11:28] VITALS: BP 106/65; PULSE 96; RESP 18; TEMP 36.6; O2SAT 98; BMI 27.1
--- NOTE | 2024-06-29 11:28 | PC.NURSE ---
Dr. Vásquez at BS with family and pt for pt eval
--- NOTE | 2024-06-29 11:29 | XR_ITS ---
FINAL REPORT CLINICAL HISTORY: Shortness of breath COMPARISON: 04/18/2023 FINDINGS: No acute pulmonary opacity is present. There is no evidence of effusion or pneumothorax. Mediastinum is unremarkable. Heart size is normal. IMPRESSION: No acute abnormality. Reviewed, Interpreted and Dictated by Prashanth Figueroa MD Transcribed by Marcelina Farr Authenticated and [facility]
--- NOTE | 2024-06-29 11:41 | ED_ITS ---
Discharge Plan Disposition Patient Disposition: Home, Self-Care Prescriptions Prescriptions: No Action loratadine 10 mg tablet 10 mg PO DAILY Patient Comments: TAKE 1 TABLET BY MOUTH EVERY DAY polyethylene glycol 3350 [Miralax] 17 gram/dose powder 17 g PO DAILY Qty: 510 11RF pantoprazole 40 mg tablet,delayed release (DR/EC) 40 mg PO DAILY Qty: 30 5RF valacyclovir 1 gram tablet 1,000 mg PO DAILY Qty: 30 3RF hydroxyzine HCl 50 mg tablet 50 mg PO BID 90 Days Qty: 180 0RF sertraline 100 mg tablet 200 mg PO DAILY Qty: 180 0RF clonazepam 2 mg tablet 4 mg PO BID Qty: 120 2RF fluticasone propionate 50 mcg/actuation spray,suspension 1 spray intranasal DAILY 30 Days Qty: 16 2RF Patient Comments: USE 2 PUFFS IN EACH NOSTRIL EVERY DAY trazodone 50 mg tablet 100 mg PO HS 30 Days Qty: 60 2RF codeine-guaifenesin 10-100 mg/5 mL liquid 10 ml PO Q4-6H PRN (Reason: cough) Qty: 120 1RF pseudoephedrine HCl 120 mg tablet extended release 120 mg PO Q12H Qty: 20 1RF Referrals Follow up/Referrals: Walt Howell MD [Primary Care Provider] - See instructions Activity Restrictions/Add. Instructions Additional Instructions/Restrictions: As discussed Mague has COVID-19 treatment is supportive. Additionally with her gallstones and possible vomiting up of blood after discussion with Dr. Goldman he will contact his office and schedule an outpatient EGD for Mague and also is going to try to push of her cholecystectomy. Expect a hear from his office soon. Return with any significant worsening of your symptoms. Clinical Impressions Clinical Impression: Cholelithiasis, Food intolerance, COVID-19 Print Language Print Language: Japanese Discharge ED Provider: Smiley Vásquez General Adult HPI General Chief complaint: Upper Respiratory Infection Stated complaint: no appetite, congestion Time Seen by Provider: 06/29/24 11:21 Mode of Arrival: Ambulatory Source of Information: Relative Limitations: Language Barrier Description of Symptoms (Recalled from ER Triage Doc. by RN): pts sister states she has not eaten in 5d and is only drinking minimally. pt has had nasal congestion, chest congestion, cough and diarrhea during this time. pt is nonverbal making it difficult to obtain her symptoms. 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 intake for the last 2 weeks which is worsened over the last 5 days. She has known cholelithiasis and is scheduled for an outpatient cholecystectomy on the of next month. Within the last few days also family found a large amount of blood on her pillow near her mouth but no definitive source of bleeding found. She moans at baseline and family is unable to ascertain whether or not she is feeling pain and why she is not eating. Additionally the patient has had a cough and congestion her physician sent her to the emergency department for evaluation of possible pneumonia. Related Data Home Medications ?Medication ?Instructions ?Recorded ?Confirmed loratadine 10 mg tablet 10 mg PO DAILY 04/04/22 06/29/24 Previous Rx's ?Medication ?Instructions ?Recorded polyethylene glycol 3350 17 17 g PO DAILY #510 grams 02/25/24 gram/dose oral powder (Miralax) hydroxyzine HCl 50 mg tablet 50 mg PO BID 90 days #180 tabs 04/01/24 sertraline 100 mg tablet 200 mg (2 x 100 mg) PO DAILY #180 05/05/24 tabs clonazepam 2 mg tablet 4 mg (2 x 2 mg) PO BID #120 tabs 05/18/24 fluticasone propionate 50 1 spray intranasal DAILY 30 days 06/10/24 mcg/actuation nasal #16 grams spray,suspension pantoprazole 40 mg tablet,delayed 40 mg PO DAILY #30 tabs 06/15/24 release valacyclovir 1 gram tablet 1,000 mg PO DAILY #30 tabs 06/15/24 trazodone 50 mg tablet 100 mg (2 x 50 mg) PO HS 30 days 06/19/24 #60 tabs codeine 10 mg-guaifenesin 100 mg/5 10 ml PO Q4-6H PRN cough #120 mL 06/22/24 mL oral liquid pseudoephedrine HCl 120 mg 120 mg PO Q12H #20 tabs 06/22/24 tablet,extended release Allergies Allergy/AdvReac Type Severity Reaction Status Date / Time aspirin AdvReac Michael's Verified 06/29/24 11:34 syndrome PFSH PFS Disclaimer: The information contained in this section may have been updated after the patient was seen, as this information can be updated by other users. Medical History Aspiration of food Chronic static encephalopathy Autism Surgical History History of dental surgery Family History Father Diabetes Heart attack Kidney disease Stroke Mother Diabetes Grandmother Diabetes Grandfather Diabetes Social History Smoking Status: Never smoker alcohol intake: never substance use type: denies use current occupational status: disabled Travel in the last 8 weeks: None household members: other details: sister housing: house Have you lived/traveled outside [place] in past 30 days?: No Contact w/someone who lives/traveled outside US past 30 days?: No Exposure to someone with infectious disease in past 14 days?: No Do you have a fever (greater than 100.4 F or 38 C)?: No Have you tested positive for COVID-19: No Exposed to someone with COVID-19 in past 14 days?: No Do you have a sore throat?: No Do you have a cough?: No Do you have any weakness?: No Do you have any diarrhea?: No Are you experiencing any unusual bleeding?: No Do you have any muscle aches/pain?: No Do you have any abdominal pain?: No Are you experiencing loss of taste or smell?: No Other Medical History Have you received the Pneumonia Vaccine: No ROS Obtained: Yes All systems reviewed & no additional complaints except as documented Physical Exam General General appearance: other (Patient moaning repetitively but this is her baseline) Respiratory Respiratory exam: Present normal lung sounds bilaterally; Absent respiratory distress Cardiovascular Cardiovascular exam: Present regular rate Abdominal Exam Abdominal exam: Present soft; Absent distention or tenderness Neurological Exam Neurological exam: Present alert and oriented X3 Medical Decision Making Medical Records Screening: Per USPSTF and CDC recommendations, given the prevalence of disease in our region, it is our hospital?s policy to screen for HIV and viral Hepatitis for all patients aged 18 and over and those with ongoing risk factors. Damien Inquiry Pt receiving controlled substance: No Vital Signs: 06/29/24 11:19 06/29/24 11:23 06/29/24 11:28 Temperature 98 F Temperature Source Oral Pulse Rate 112 H 90 Pulse Rate [Left] 96 H Respiratory Rate 18 Blood Pressure 106/65 L 134/112 H Blood Pressure [Right Arm] 106/65 L Blood Pressure Mean [Right Arm] 78 Blood Pressure Source [Right Arm] Automatic Cuff Blood Pressure Position [Right Arm] Sitting 02 Sat by Pulse Oximetry 94 L 95 98 Oxygen Delivery Method Room Air Room Air Room Air Lab Data Lab results reviewed: Yes I reviewed the patient's lab results. Lab Results 06/29/24 11:26: SARS-CoV-2 (PCR) Detected A, Influenza A Untype (PCR) Not detected, Influenza Type B (PCR) Not detected 06/29/24 12:00: Sodium 143, Potassium 3.7, Chloride 106, Carbon Dioxide 31 H, Anion Gap 9.7, BUN 17, Creatinine 0.60, Estimated Creat Clear 104, Estimated GFR 103, Est GFR ( Amer) 125, Glucose 87, Calcium 9.0, Total Bilirubin 0.4, AST 33, ALT 20, Alkaline Phosphatase 81, Total Protein 7.5, Albumin 4.3, Globulin 3.2, Albumin/Globulin Ratio 1.3, Lipase 52 06/29/24 12:00 Orders (Tests/Meds): ED MEDICATIONS Generic Name Dose Route Start Last Admin Trade Name Freq PRN Reason Stop Dose Admin Sodium Chloride 8 ml 06/29/24 11:29 Sodium Chloride 0.9% 10ml Vial IV 07/29/24 11:28 NEEDED PRN dilute pepcid Discontinued Medications Generic Name Dose Route Start Last Admin Trade Name Freq PRN Reason Stop Dose Admin Famotidine 20 mg 06/29/24 11:29 06/29/24 12:12 Famotidine 20mg/2ml Vial IV 06/29/24 11:30 20 mg ONCE ONE Administration Sodium Chloride 1,000 mls @ 999 mls/hr 06/29/24 11:30 06/29/24 12:11 Sod Chlor 0.9% 1000ml Bag IV 06/29/24 12:30 999 mls/hr .Q1H1M TRINIDAD Administration Ondansetron HCl 4 mg 06/29/24 11:29 06/29/24 12:11 Ondansetron 4mg/2ml Vial IV 06/29/24 11:30 4 mg ONCE ONE Administration ORDERS Category Date Time Status CXR --portable [XR chest portable] Stat Exams 06/29/24 11:29 Completed POCUS Point of Care (ER Only) Stat Exams 06/29/24 11:29 Completed CBC w/Auto Diff [Complete Blood Count Auto Diff] Stat Lab 06/29/24 12:00 Received CMP [Comprehensive Metabolic Panel] Stat Lab 06/29/24 12:00 Completed HIV Combo Stat Lab 06/29/24 12:00 Received Hepatitis C Ab Qual. W/ RFX Stat Lab 06/29/24 12:00 Received Lipase Stat Lab 06/29/24 12:00 Completed Rapid PCR Covid and Flu A/B Stat Lab 06/29/24 11:26 Completed Medical Decision Narrative: 58-year-old with cough congestion and 2 weeks now with food intolerance and decreased p.o. intake. She also had blood that was found next to her pillow in the morning recently differential includes biliary colic, peptic ulcer disease, URI, pneumonia etc. Given the fact that she had a bleeding and has known cholelithiasis and is scheduled for possible cholecystectomy I recommend that she get an EGD at the same time given the fact that she had the blood that is unexplained and possibly has a bleeding ulcer which could explain her postprandial pain or food intolerance or eversion. No clinical status. Difficult to prove causation of any abnormal findings with her symptoms. After this initial workup is complete will reassess. Limited bedside ultrasound performed does in fact show cholelithiasis with evidence of chronic cholecystitis with chronic anterior gallbladder wall thickening. Reassessment labs unremarkable patient remains very stable hemodynamically. I discussed the case with Dr. Goldman and given the fact that she possibly threw up blood and has this chronic gallbladder pathology he will try to schedule her for an outpatient EGD and move up her cholecystectomy. Family very comfortable with that she is stable and they will treat her supportively. She is positive for COVID-19 I do not believe she is a candidate for Paxlovid. Ultimately patient was discharged with supportive care and return precautions emphasized and to expect to hear from Dr. Goldman's office soon Procedures Miscellaneous Procedure Procedure Performed: Limited RUQ ultrasound Indication: Abdominal pain Identified structures: -Gallbladder -Gallbladder wall -Common bile duct -Liver Findings: Given patient's chronic clinical state unable to identify without the patient has a sonographic Sandy's, there are multiple large stones anterior gallbladder wall is thickened at 0.45 cm, common bile duct visualized and was within normal limits no pericholecystic fluid Impression: Cholelithiasis with evidence of chronic inflammation with no definitive evidence of acute cholecystitis Images were saved to permanent archive The study was technically adequate CPT 08584-06 This study was performed by me, and I personally interpreted all images/videos. Based on my clinical judgement, these images were adequate and did not necessitate further imaging. Critical Care Critical Care Time Critical Care Time: No
--- NOTE | 2024-06-29 11:45 | PC.NURSE ---
portable rad at BS
[2024-06-29 11:46] LABS: Influenza A, PCR Not Detected (NotDetected); Influenza B, PCR Not Detected (NotDetected)
[2024-06-29 12:09] LABS: Basophils % 0.1 % (0.1-2.0); Eosinophils # 0.1 K/mm3 (0.0-0.4); Eosinophils % 1.3 % (0.1-12.0); Hematocrit 37.6 % (37.0-47.0); Hemoglobin 12.2 g/dL (12.2-16.2); Lymphocytes # 2.1 K/mm3 (0.7-4.5); Lymphocytes % 22.5 % (10-50); Mean Corpuscular HGB Conc 32.4 g/dL (31.8-35.4); Mean Corpuscular Volume 86.4 fl (81-99); Mean Platelet Volume 10.4 fl (7.4-10.4); Monocytes # 0.6 K/mm3 (0.1-1.0); Monocytes % 6.8 % (1.7-9.3); Neutrophils # 6.5 K/mm3 (1.8-7.8); Platelet Count 222 K/mm3 (142-424); Red Blood Count 4.35 M/mm3 (4.20-5.40); Red Cell Distribution Width 14.8 % (11.5-17.5); White Blood Count 9.4 K/mm3 (4.8-10.8)
[2024-06-29] MEDS: 0.9 % SODIUM CHLORIDE 1000ML 1,000 ML 999 ML IV (12:11)
[2024-06-29] MEDS: ONDANSETRON 4MG/2ML VIAL 4 MG IV (12:11)
[2024-06-29] MEDS: FAMOTIDINE 20MG/2ML VIAL 20 MG IV (12:12)
[2024-06-29 12:15] LABS: Albumin Level 4.3 g/dl (3.5-5.0); Chloride 106 mmol/L (98-107)
[2024-06-29 12:16] LABS: Potassium 3.7 mmoL/L (3.5-5.1); Sodium 143 mmol/L (136-145)
[2024-06-29 12:18] LABS: Alanine Aminotransferase 20 U/L (12-78); Albumin/Globulin Ratio 1.3 (1.1-1.8); Alkaline Phosphatase 81 U/L (38-126); Anion Gap 9.7 mEq/L (5-15); Aspartate Amino Transferase 33 U/L (14-36); Bilirubin,Total 0.4 mg/dl (0.2-1.3); Blood Urea Nitrogen 17 mg/dl (7-17); Carbon Dioxide 31 mmol/L (22.0-30.0); Creatinine Clearance Estimated 104 mL/min (50-200); Estimated Glomerular Filt Rate 103 ml/min (>60); GFR (African American) 125 ML/MIN (>60); Globulin 3.2 g/dL (1.3-3.2); Lipase 52 U/L (23-300); Total Protein,Serum 7.5 g/dl (6.3-8.2)
[2024-06-29 12:19] LABS: Glucose 87 mg/dl (74-100)
[2024-06-29 12:43] LABS: Coronavirus 19, PCR Detected (NotDetected)
--- NOTE | 2024-06-29 12:43 | PC.NURSE ---
ROUNDED ON THE PT. THE PT FAMILY MEMBER VOICES THAT THEY DO NOT NEED ANYTHING AT THIS TIME. CALL LIGHT IS WITHIN REACH OF THE PT FAMILY MEMBERS. FAMILY MEMBERS ARE PRESENT AT THE BEDSIDE.
--- NOTE | 2024-06-29 12:50 | PC.NURSE ---
I paged for Dr. Vásquez
--- NOTE | 2024-06-29 13:00 | PC.NURSE ---
Per registration, Dr. Goldman's phone was unavailable . Called [facility] office for them let him know to call the ER to Dr. Vásquez. Dr. Vásquez aware of this.
--- NOTE | 2024-06-29 13:05 | PC.NURSE ---
Dr. Vásquez speaking with Dr. Goldman
--- NOTE | 2024-06-29 13:10 | PC.NURSE ---
DR BOLDEN AT BESIDE TO UPDATE FAMILY
[2024-06-29 13:15] VITALS: BP 132/99; PULSE 83; RESP 20; TEMP 36.6; O2SAT 96
[2024-06-29 13:17] VITALS: BP 140/92; PULSE 83; RESP 22; TEMP 36.6; O2SAT 98
[2024-06-29 13:24] LABS: HIV Combo NEGATIVE (Negative)
[2024-06-29 13:33] LABS: Hepatitis C Ab Qual. W/ RFX NEGATIVE (Negative)
== END 2024-06-29 13:17 | disposition home or self-care (01) ==
PROVIDERS: Emergency Provider Student in an Organized Health Care Education/Training Program; PCP Family Medicine
DX: U07.1 COVID-19 (principal); K90.49 Malabsorption due to intolerance, not elsewhere classified; K80.20 Calculus of gallbladder without cholecystitis without obstruction; R09.81 Nasal congestion; R09.89 Other specified symptoms and signs involving the circulatory and respiratory systems; R05.9 Cough, unspecified; R19.7 Diarrhea, unspecified; R63.8 Other symptoms and signs concerning food and fluid intake
CPT/HCPCS: 71045; 80053; 83690; 85025; 86803; 87389; 87636; 96361; 96374; 96375; 99284; J2405; J7030; S0028

== ENCOUNTER 2024-07-09 17:32 | Observation (INO) | payer MEDICARE, MEDICAID, SELFPAY ==
[2024-07-09] VITALS (11 sets, daily range): BP systolic 103–196; BP diastolic 65–114; PULSE 49–108; RESP 14–49; TEMP 37–37.9; O2SAT 88–96; BMI 27.3; BMI 27.4
--- NOTE | 2024-07-09 17:46 | PC.NURSE ---
4 attempts to obtain BP. unable to obtain accurate BP due to patient movement.
--- NOTE | 2024-07-09 17:55 | PC.NURSE ---
pts derrick, sister, states she has gallstones and a romero scheduled on 07/16. The sister reports she is suppose to have a EGD and colonoscopy tomorrow. pt completed her miralax and biscodyl bowel prep today. Sister reports shortly after finishing the last bit she started having N/V. pt has had 4 rounds of diarrhea that is getting to a near clear color. The sister brought her in because she is concerned that she is in pain. pt is nonverbal thus difficult to assess.
--- NOTE | 2024-07-09 18:20 | CT_ITS ---
PROCEDURE INFORMATION: Exam: CT Abdomen And Pelvis With Contrast Exam date and time: 07/09/2024 8:30 PM Age: 58 years old Clinical indication: Other: Nonverbal, abd pain? Vomiting TECHNIQUE: Imaging protocol: Computed tomography of the abdomen and pelvis with contrast. 3D rendering (Not supervised by radiologist): MIP and/or 3D reconstructed images were created by the technologist. Radiation optimization: All CT scans at this facility use at least one of these dose optimization techniques: automated exposure control; mA and/or kV adjustment per patient size (includes targeted exams where dose is matched to clinical indication); or iterative reconstruction. Contrast material: ISOVUE; Contrast volume: 70 ml; Contrast route: IV; COMPARISON: CT ABDOMEN PELVIS W CON 01/05/2024 10:09 AM FINDINGS: Lungs: In the lung bases there is airspace disease that is concerning for pneumonia. Liver: Normal. No mass. Gallbladder and biliary ducts: Gallstones Pancreas: Normal. No ductal dilation. Spleen: Normal. No splenomegaly. Adrenal glands: Normal. No mass. Kidneys and ureters: Stable extrarenal pelvis on the right. No obstructive uropathy Stomach and bowel: Air-fluid levels in the colon which is mildly distended with air-fluid levels reflecting diarrhea and possibly low-grade colitis. Scattered fluid within nondistended small bowel loops. No bowel obstruction Appendix: No evidence of appendicitis. Intraperitoneal space: Unremarkable. No free air. No significant fluid collection. Vasculature: Unremarkable. No abdominal aortic aneurysm. Lymph nodes: Unremarkable. No enlarged lymph nodes. Urinary bladder: Unremarkable as visualized. Reproductive: Unremarkable as visualized. Bones/joints: Unremarkable. No acute fracture. Soft tissues: Unremarkable. IMPRESSION: Low-grade enterocolitis and diarrhea In the lung bases there is airspace disease that is concerning for pneumonia.
--- NOTE | 2024-07-09 18:20 | CT_ITS ---
PROCEDURE INFORMATION: Exam: CTA Chest With Contrast Exam date and time: 07/09/2024 8:30 PM Age: 58 years old Clinical indication: Other: Nonverbal, pain, tachycardia TECHNIQUE: Imaging protocol: Computed tomographic angiography of the chest with contrast. Exam focused on the arteries. 3D rendering (Not supervised by radiologist): MIP and/or 3D reconstructed images were created by the technologist. Radiation optimization: All CT scans at this facility use at least one of these dose optimization techniques: automated exposure control; mA and/or kV adjustment per patient size (includes targeted exams where dose is matched to clinical indication); or iterative reconstruction. Contrast material: ISOVUE 370; Contrast volume: 70 ml; Contrast route: INTRAVENOUS (IV); COMPARISON: CT ANGIO CHEST PE PROTOCOL 07/09/2024 8:30 PM FINDINGS: Pulmonary arteries: Normal. No pulmonary emboli. Aorta: Unremarkable. No aortic aneurysm. No aortic dissection. Lungs: Ground-glass opacities in the lower lobes left greater than right this could indicate pneumonia. Pleural spaces: Unremarkable. No pneumothorax. No pleural effusion. Heart: Unremarkable. No cardiomegaly. No pericardial effusion. Lymph nodes: Unremarkable. No enlarged lymph nodes. Bones/joints: Unremarkable. No acute fracture. Soft tissues: Unremarkable. IMPRESSION: Ground-glass opacities in the lower lobes left greater than right this could indicate pneumonia. No pulmonary embolism
--- NOTE | 2024-07-09 18:28 | ED_ITS ---
Discharge Plan Disposition Patient Disposition: Admitted Condition: Fair Clinical Impressions Clinical Impression: Pneumonia, Sepsis Discharge ED Provider: Tran Olson General Adult HPI General Chief complaint: Nausea/Vomiting/Diarrhea Stated complaint: has gallstones,taking prep with vomiting Time Seen by Provider: 07/09/24 17:54 Mode of Arrival: Ambulatory Source of Information: Relative Limitations: No Limitations Description of Symptoms (Recalled from ER Triage Doc. by RN): Pt presents with family for evaluation. Family provides medical history as patient is nonverbal. Pt is supposed to have her gallbladder removed on 07/16/24. Pt is supposed to have an EGD tomorrow and was doing the bowel prep. Pt started to have vomiting and per family patient is having increased pain History of Present Illness HPI narrative: This patient is a 58-year-old female who is nonverbal with a history of cholelithiasis with plan for outpatient cholecystectomy presenting to the emergency department for evaluation with concern for possible pain and vomiting. According the family, she has been gritting her teeth, yelling more often, and seems very uncomfortable. They note that this often happens when she is having pain, such as abdominal pain. Of note, patient is supposed to have a colonoscopy in the morning. Family had been giving her prep, but she started vomiting and was unable to keep any of it down. She seemed to be very uncomfortable at home, so they thought she may be having abdominal pain. Given this, they brought her in for further evaluation. Related Data Home Medications ?Medication ?Instructions ?Recorded ?Confirmed loratadine 10 mg tablet 10 mg PO DAILY 04/04/22 07/09/24 Previous Rx's ?Medication ?Instructions ?Recorded polyethylene glycol 3350 17 17 g PO DAILY #510 grams 02/25/24 gram/dose oral powder (Miralax) sertraline 100 mg tablet 200 mg (2 x 100 mg) PO DAILY #180 05/05/24 tabs clonazepam 2 mg tablet 4 mg (2 x 2 mg) PO BID #120 tabs 05/18/24 fluticasone propionate 50 1 spray intranasal DAILY 30 days 06/10/24 mcg/actuation nasal #16 grams spray,suspension pantoprazole 40 mg tablet,delayed 40 mg PO DAILY #30 tabs 06/15/24 release valacyclovir 1 gram tablet 1,000 mg PO DAILY #30 tabs 06/15/24 trazodone 50 mg tablet 100 mg (2 x 50 mg) PO HS 30 days 06/19/24 #60 tabs hydroxyzine HCl 50 mg tablet 50 mg PO BID 90 days #180 tabs 07/06/24 Allergies Allergy/AdvReac Type Severity Reaction Status Date / Time aspirin AdvReac Adan's Verified 06/29/24 11:34 syndrome PFSH PFS Disclaimer: The information contained in this section may have been updated after the patient was seen, as this information can be updated by other users. Medical History Aspiration of food Chronic static encephalopathy Autism Surgical History History of dental surgery Family History Father Diabetes Heart attack Kidney disease Stroke Mother Diabetes Grandmother Diabetes Grandfather Diabetes Social History Smoking Status: Never smoker alcohol intake: never substance use type: denies use current occupational status: disabled Travel in the last 8 weeks: None household members: other details: sister housing: house Have you lived/traveled outside [place] in past 30 days?: No Contact w/someone who lives/traveled outside [place] past 30 days?: No Exposure to someone with infectious disease in past 14 days?: No Do you have a fever (greater than 100.4 F or 38 C)?: No Have you tested positive for COVID-19: No Exposed to someone with COVID-19 in past 14 days?: No Do you have a sore throat?: No Do you have a cough?: No Do you have any weakness?: No Are you experiencing any nausea/vomitting?: No Do you have any diarrhea?: No Are you experiencing any unusual bleeding?: No Do you have any muscle aches/pain?: No Do you have any abdominal pain?: Yes Are you experiencing loss of taste or smell?: No Other Medical History Have you received the Pneumonia Vaccine: No ROS Obtained: Yes All systems reviewed & no additional complaints except as documented Physical Exam General General appearance: alert Comment: Yelling, grinding teeth, uncomfortable appearing Head Head exam: atraumatic and normocephalic Eye Eye exam: Present normal appearance, PERRL and EOMI ENT ENT exam: Present normal exam, mucous membranes dry and normal external ear exam Neck Neck exam: Present normal inspection, full ROM and trachea midline; Absent tenderness Chest Chest inspection: Present normal inspection and symmetric chest wall rise; Absent tenderness Respiratory Respiratory exam: Present accessory muscle use and other (Tachypneic with increased work of breathing. O2 saturation in the low 90s on room air. Rhonchi heard bibasilar); Absent respiratory distress, wheezes or stridor Cardiovascular Cardiovascular exam: Present normal rhythm and tachycardia Abdominal Exam Abdominal exam: Present distention (Mild); Absent guarding or rebound Extremities Exam Extremities exam: Present normal inspection, full ROM and normal capillary refill; Absent tenderness or edema Back Exam Back exam: Present normal inspection and full ROM; Absent tenderness Neurological Exam Neurological exam: Present alert and other (At her neurologic baseline) Psychiatric Psychiatric exam: Present agitated Skin Skin exam: Present warm and dry Medical Decision Making Medical Records Medical records reviewed: Yes I reviewed the patient's medical records. Screening: Per USPSTF and CDC recommendations, given the prevalence of disease in our region, it is our hospital?s policy to screen for HIV and viral Hepatitis for all patients aged 18 and over and those with ongoing risk factors. Damien Inquiry Pt receiving controlled substance: No Vital Signs: 07/09/24 17:41 07/09/24 18:00 07/09/24 19:02 Temperature 98.6 F Temperature Source Oral Pulse Rate 49 L 78 Pulse Rate [Right] 105 H Respiratory Rate 18 23 25 H Blood Pressure 127/82 131/112 H Blood Pressure [Right Arm] 196/114 H Blood Pressure Mean [Right Arm] 141 Blood Pressure Source Blood Pressure Source [Right Arm] Automatic Cuff Blood Pressure Position Blood Pressure Position [Right Arm] Sitting 02 Sat by Pulse Oximetry 95 94 L 88 L Oxygen Delivery Method Room Air Room Air Oxygen Flow Rate (LPM) 07/09/24 19:31 07/09/24 20:00 07/09/24 21:00 Temperature Temperature Source Pulse Rate 108 H 100 H Pulse Rate [Right] Respiratory Rate 28 H 25 H 49 H Blood Pressure 146/113 H 156/104 H 122/77 Blood Pressure [Right Arm] Blood Pressure Mean [Right Arm] Blood Pressure Source Blood Pressure Source [Right Arm] Blood Pressure Position Blood Pressure Position [Right Arm] 02 Sat by Pulse Oximetry 92 L 92 L Oxygen Delivery Method Room Air Room Air Room Air Oxygen Flow Rate (LPM) 07/09/24 21:30 07/09/24 22:06 07/09/24 22:30 Temperature Temperature Source Pulse Rate 103 H Pulse Rate [Right] Respiratory Rate 37 H 26 H 39 H Blood Pressure 112/75 113/73 103/65 L Blood Pressure [Right Arm] Blood Pressure Mean [Right Arm] Blood Pressure Source Blood Pressure Source [Right Arm] Blood Pressure Position Blood Pressure Position [Right Arm] 02 Sat by Pulse Oximetry 92 L 94 L Oxygen Delivery Method Room Air Room Air Room Air Oxygen Flow Rate (LPM) 07/09/24 23:00 07/09/24 23:04 Temperature 99.4 F 100.3 F H Temperature Source Axillary Oral Pulse Rate 103 H Pulse Rate [Right] 101 H Respiratory Rate 16 14 Blood Pressure 103/65 L Blood Pressure [Right Arm] 103/65 L Blood Pressure Mean [Right Arm] 77 Blood Pressure Source Automatic Cuff Blood Pressure Source [Right Arm] Automatic Cuff Blood Pressure Position Sitting Blood Pressure Position [Right Arm] 02 Sat by Pulse Oximetry 94 L Oxygen Delivery Method Nasal Cannula Nasal Cannula Oxygen Flow Rate (LPM) 2 4 Lab Data Lab results reviewed: Yes I reviewed the patient's lab results. Lab Results 07/09/24 18:31: WBC 14.4 H, RBC 4.44, Hgb 12.5, Hct 38.1, MCV 85.8, MCH 28.2, MCHC 32.8, RDW 15.2, Plt Count 219, MPV 10.3, Neut % (Auto) 92.9 H, Lymph % (Auto) 2.8 L, [place] % (Auto) 3.5, Eos % (Auto) 0.0 L, Baso % (Auto) 0.2, Neut # (Auto) 13.4 H, Lymph # (Auto) 0.4 L, [place] # (Auto) 0.5, Eos # (Auto) 0.0, Baso # (Auto) 0.0, Total Counted 100, Neutrophils % (Manual) 92 H, Band Neutrophils % 4.0, Lymphocytes % (Manual) 2 L, Monocytes % (Manual) 2, Platelet Estimate Normal, RBC Morphology Normal, Sodium 141, Potassium 3.2 L, Chloride 105, Carbon Dioxide 25, Anion Gap 14.2, BUN 10, Creatinine 0.70, Estimated Creat Clear 90, Estimated GFR 87, Est GFR ( Amer) 105, Glucose 154 H, Lactate 1.6, Calcium 8.9, Total Bilirubin 0.5, AST 35, ALT 22, Alkaline Phosphatase 88, Troponin I < 0.01, Total Protein 8.1, Albumin 4.6, Globulin 3.5 H, Albumin/Globulin Ratio 1.3, Lipase 71 07/09/24 21:20: Urine Color Yellow, Urine Appearance Clear, Urine pH 6.0, Ur Specific [place] 1.020, Urine Protein Negative, Urine Glucose (UA) Negative, Urine Ketones Negative, Urine Blood Trace-i, Urine Nitrate Negative, Urine Bilirubin Negative, Urine Urobilinogen 0.2, Ur Leukocyte Esterase Negative, Urine RBC 3-5, Urine WBC 5-10, Ur Squamous Epith Cells 5-10, Urine Bacteria 2+, Urine Mucus 4+ 07/09/24 22:00: Troponin I < 0.01 07/09/24 18:31 07/09/24 18:31 Orders (Tests/Meds): ED MEDICATIONS Generic Name Dose Route Start Last Admin Trade Name Freq PRN Reason Stop Dose Admin Enoxaparin Sodium 40 mg 07/10/24 09:00 Enoxaparin 40mg/0.4ml Syringe SUBCUT 08/09/24 08:59 DAILY TRINIDAD Sodium Chloride 1,000 mls @ 50 mls/hr 07/09/24 22:15 Sod Chlor 0.9% 1000ml Bag IV 08/08/24 22:14 .Q20H TRINIDAD Ondansetron HCl 4 mg 07/09/24 22:01 Ondansetron 4mg/2ml Vial IV 08/08/24 22:00 Q8HP PRN Nausea Pantoprazole Sodium 40 mg 07/10/24 21:00 Pantoprazole 40mg Vial IV 08/09/24 20:59 HS TRINIDAD Sodium Chloride 10 ml 07/09/24 18:25 Sodium Chloride 0.9% 10ml Vial IV 08/08/24 18:24 NEEDED PRN to Dilute Lorazepam inj Discontinued Medications Generic Name Dose Route Start Last Admin Trade Name Freq PRN Reason Stop Dose Admin Haloperidol Lactate 5 mg 07/09/24 19:49 07/09/24 19:52 Haloperidol Lactate 5 Mg/Ml Vial IV 07/09/24 19:50 5 mg ONCE ONE Administration Lactated Ringer's 1,000 mls @ 999 mls/hr 07/09/24 18:25 07/09/24 18:50 Lactated Ringer's 1000 Ml Bag IV 07/09/24 19:25 999 mls/hr .Q1H1M ONE Administration Piperacillin Sod/Tazobactam 50 mls @ 100 mls/hr 07/09/24 21:44 07/09/24 21:52 Sod 3.375 gm/ Sodium Chloride IV 07/09/24 22:13 100 mls/hr ONCE ONE Administration Iopamidol 70 ml 07/09/24 20:38 07/09/24 20:40 Iopamidol-370 (76%);100ml Bottle IV 07/09/24 20:39 70 ml ONCE ONE Administration Lorazepam 1 mg 07/09/24 18:25 07/09/24 18:50 Lorazepam 2mg/Ml Vial IV 07/09/24 18:26 1 mg ONCE ONE Administration Ondansetron HCl 4 mg 07/09/24 18:25 07/09/24 18:50 Ondansetron 4mg/2ml Vial IV 07/09/24 18:26 4 mg ONCE ONE Administration Sodium Chloride 50 ml 07/09/24 20:38 07/09/24 20:40 0.9 % Sodium Chloride 50 Ml Vial IV 07/09/24 20:39 50 ml ONCE ONE Administration Sodium Chloride 10 ml 07/09/24 20:38 07/09/24 20:40 Sodium Chloride 0.9% 10ml Syr (Rad Only) IV 07/09/24 20:39 10 ml ONCE ONE Administration ORDERS Category Date Time Status CT abdomen pelvis w con Stat Cat Scan 07/09/24 18:[address] angio chest PE protocol Stat Cat Scan 07/09/24 18:20 Completed Basic Metabolic Panel [facility] Lab 07/10/24 06:00 Ordered Basic Metabolic Panel [facility] 07/11/24 06:00 Ordered Basic Metabolic Panel [facility] Lab 07/12/24 06:00 Ordered Basic Metabolic Panel [facility] Lab 07/13/24 06:00 Ordered Basic Metabolic Panel [facility] Lab 07/14/24 06:00 Ordered Complete Blood Count Auto Diff [facility] Lab 07/10/24 06:00 Ordered Complete Blood Count Auto Diff [facility] Lab 07/11/24 06:00 Ordered Complete Blood Count Auto Diff [facility] Lab 07/12/24 06:00 Ordered Complete Blood Count Auto Diff [facility] Lab 07/13/24 06:00 Ordered Complete Blood Count Auto Diff [facility] Lab 07/14/24 06:00 Ordered Complete Blood Count Auto Diff Stat Lab 07/09/24 18:31 Completed Comprehensive Metabolic Panel Stat Lab 07/09/24 18:31 Completed Lactic Acid Stat Lab 07/09/24 18:31 Completed Lipase Stat Lab 07/09/24 18:31 Completed Magnesium [facility] Lab 07/10/24 06:00 Ordered Trop I [Troponin I] Stat Lab 07/09/24 18:31 Completed Troponin I Q3H Lab 07/09/24 22:00 Completed Troponin I Q3H Lab 07/10/24 00:30 Ordered UA [Urinalysis and Microscopic] Stat Lab 07/09/24 21:20 Completed Blood Culture Stat Micro 07/09/24 22:15 Ordered Urine Culture Stat Micro 07/09/24 21:20 Received Medical Decision Narrative: In summary, this patient is a 58-year-old female presenting to the Emergency Department for evaluation of irritability, possible pain, vomiting. She is nonverbal and does not provide further history. She arrives tachypneic, tachycardic, borderline low oxygen saturations in the setting of vomiting. Differential diagnoses considered include but are not limited to cholecystitis, pancreatitis, bowel obstruction, aspiration pneumonitis, gastroenteritis, pneumonia. Ruling out the most morbid conditions drove assessment. It should be noted patient's history includes nonverbal status and gallstones which are not at goal therapy. This complicates all aspects of care by increasing patient's risk for morbidity. I reviewed patient's past medical records and noted previous evaluations in the ED for similar issues and diagnosis of gallstones in the past. She is following up outpatient with Dr. Goldman who plans outpatient surgery and is also planning for outpatient colonoscopy and EGD.. On exam, the patient is uncomfortable, gritting teeth, yelling. She has increased work of breathing, tachycardia, tachypnea, borderline low oxygen saturations on room air. She has abdominal distention that is mild, difficult to ascertain whether or not she is having tenderness but no rebound or rigidity. Workup included broad lab evaluation to evaluate for infectious, metabolic, cardiac etiologies as well as CT scans of the chest, abdomen, and pelvis. I independently interpreted CT prior to the radiologist read and noted bilateral pneumonia. Please see their read for final interpretation. They note concerns for enteritis. Labs were obtained that demonstrated leukocytosis, mild hypokalemia. Patient was given IV Ativan and then IV Haldol for agitation for the purpose of CT scan. The Ativan was given initially, but did not work very well, so Haldol was then given later. This worked very well and she was able to lie still for CT scan with no decompensation, no respiratory depression. She was given a bolus of IV fluids and IV Zofran with no recurrence of vomiting. She meets SIRS criteria in the setting of pneumonia, so we will treat for sepsis. She was not given full sepsis bolus given respiratory failure as I feel volume overload could be harmful to her. She was given IV Zosyn with concern for possible aspiration pneumonia. Ultimately at this time, I feel she would benefit from admission for further evaluation and management of sepsis secondary to pneumonia. I had an interactive discussion with the hospitalist who admitted the patient in stable condition. Critical Care Critical Care Time Critical Care Time: Yes Attestation: On 07/09/24, the high probability of a clinically significant, sudden or life threatening deterioration of the following system(s) required my full and direct attention, intervention and personal management. The time I documented below is in addition to time spent performing reported procedures but includes the following listed in this critical care notation. Total Time Total Critical Care Time: 30
[2024-07-09 18:46] LABS: Basophils % 0.2 % (0.1-2.0); Hematocrit 38.1 % (37.0-47.0); Hemoglobin 12.5 g/dL (12.2-16.2); Lymphocytes # 0.4 K/mm3 (0.7-4.5); Lymphocytes % 2.8 % (10-50); Mean Corpuscular HGB Conc 32.8 g/dL (31.8-35.4); Mean Corpuscular Hemoglobin 28.2 pg (27.0-31.2); Mean Corpuscular Volume 85.8 fl (81-99); Mean Platelet Volume 10.3 fl (7.4-10.4); Monocytes # 0.5 K/mm3 (0.1-1.0); Monocytes % 3.5 % (1.7-9.3); Neutrophils # 13.4 K/mm3 (1.8-7.8); Neutrophils % 92.9 % (37.0-80.0); Platelet Count 219 K/mm3 (142-424); Red Blood Count 4.44 M/mm3 (4.20-5.40); Red Cell Distribution Width 15.2 % (11.5-17.5); White Blood Count 14.4 K/mm3 (4.8-10.8)
[2024-07-09] MEDS: LORazepam 2MG/ML VIAL 1 MG IV (18:50)
[2024-07-09] MEDS: ONDANSETRON 4MG/2ML VIAL 4 MG IV (18:50)
[2024-07-09] MEDS: LACTATED RINGERS 1000ML 1,000 ML 999 ML IV (18:50)
[2024-07-09 18:52] LABS: MANUAL DIFFERENTIAL MANUAL DIFFERENTIAL (MANUAL DIFF)
[2024-07-09 18:58] LABS: Albumin Level 4.6 g/dl (3.5-5.0); Chloride 105 mmol/L (98-107); Potassium 3.2 mmoL/L (3.5-5.1); Sodium 141 mmol/L (136-145)
[2024-07-09 19:01] LABS: Alanine Aminotransferase 22 U/L (12-78); Albumin/Globulin Ratio 1.3 (1.1-1.8); Alkaline Phosphatase 88 U/L (38-126); Anion Gap 14.2 mEq/L (5-15); Aspartate Amino Transferase 35 U/L (14-36); Bilirubin,Total 0.5 mg/dl (0.2-1.3); Blood Urea Nitrogen 10 mg/dl (7-17); Calcium 8.9 mg/dl (8.4-10.2); Carbon Dioxide 25 mmol/L (22.0-30.0); Creatinine Clearance Estimated 90 mL/min (50-200); Estimated Glomerular Filt Rate 87 ml/min (>60); GFR (African American) 105 ML/MIN (>60); Globulin 3.5 g/dL (1.3-3.2); Glucose 154 mg/dl (74-100); Lactic Acid 1.6 mmol/L (0.7-2.1); Lipase 71 U/L (23-300); Total Protein,Serum 8.1 g/dl (6.3-8.2)
[2024-07-09 19:23] LABS: Lymphocytes % 2 % (10-50); Monocytes % 2 % (2-9); Neutrophils % 92 % (42-76); Total Cells Counted 100
[2024-07-09 19:24] LABS: Platelet Estimate Normal; RBC Morphology Normal
[2024-07-09 19:28] LABS: Troponin I < 0.01 ng/ml (0.00-0.034)
--- NOTE | 2024-07-09 19:34 | PC.NURSE ---
Attempted to perform EKG @ 19:35 pt was unable to hold still was unsuccessful
--- NOTE | 2024-07-09 19:39 | PC.NURSE ---
rounded on pt at this time. family voices concerns about pt not being able to stay still for CT scan, despite having ativan
[2024-07-09] MEDS: HALOPERIDOL LACTATE 5 MG/ML VIAL IV (19:52)
--- NOTE | 2024-07-09 20:34 | PC.NURSE ---
Pt in CT scan
[2024-07-09] MEDS: IOPAMIDOL-370 (76%);100ML BOTTLE 70 ML IV (20:40)
[2024-07-09] MEDS: 0.9 % SODIUM CHLORIDE 50 ML VIAL IV (20:40)
[2024-07-09] MEDS: SODIUM CHLORIDE 0.9% 10ML SYR (RAD ONLY) 10 ML IV (20:40)
--- NOTE | 2024-07-09 21:21 | PC.NURSE ---
Pt cathed for urine specimen Pt tolerated well
[2024-07-09 21:38] LABS: Microscopic, Urine URINE MICROSCOPIC (MICROSCOPIC)
[2024-07-09 21:50] LABS: Appearance,Urine CLEAR (Clear); Bilirubin,Urine Negative (Negative); Blood, Urine TRACE-I (Negative); Color,Urine YELLOW (Yellow); Glucose,Urine (UA) Negative (Negative); Ketones,Urine Negative (Negative); Leukocyte Esterase,Urine Negative (Negative); Nitrate,Urine Negative (Negative); Protein,Urine Negative (Negative); Urobilinogen,Urine 0.2 EU/dl (0.2)
[2024-07-09] MEDS: PIPERACILLIN/TAZO 3.375 GM in 0.9 % SODIUM CHLORIDE 50 ML IV (21:52)
--- NOTE | 2024-07-09 22:07 | P.HP_ITS ---
History of Present Illness *Admission Date: 07/09/24 *Reason for visit:: Nausea vomiting *History of present illness: The patient is a 58-year-old female with a history of cholelithiasis with a planned outpatient cholecystectomy, chronic static encephalopathy, who presents to the emergency department for evaluation of possible pain and vomiting. She is nonverbal, and her family reports that she has been gritting her teeth, yelling more frequently, and appearing uncomfortable, which they recognize as a sign of pain, often abdominal in nature. She was scheduled for a colonoscopy in the morning, and while taking the bowel preparation at home, she began vomiting and was unable to keep the prep down. Concerned that she might be experiencing abdominal pain, her sister who is POA brought her in for further evaluation. On arrival, the patient was tachycardic, tachypneic, and borderline hypoxic. Examination revealed increased work of breathing, gritted teeth, and ongoing vocalizations suggestive of discomfort. The abdomen was mildly distended, though tenderness was difficult to assess. There was no evidence of rebound or rigidity. Given her presentation, broad laboratory evaluation was performed, along with CT scans of the chest, abdomen, and pelvis. Laboratory studies revealed leukocytosis (WBC 14.4) with marked neutrophilia, mild hypokalemia (K 3.2), and hyperglycemia (glucose 154). CT scan was independently reviewed and demonstrated bilateral pneumonia, with radiology also noting concerns for enteritis. Given her respiratory symptoms and imaging findings, she was treated for sepsis secondary to pneumonia. IV Zosyn was initiated for suspected aspiration pneumonia. Due to respiratory status concerns, a full sepsis bolus was avoided to prevent volume overload. The patient was notably agitated, requiring IV Ativan, followed by IV Haldol, to facilitate imaging studies. A bolus of IV fluids and IV Zofran was administered, with no recurrence of vomiting. Given her sepsis and respiratory concerns, admission was deemed necessary for further monitoring, IV antibiotic therapy, and supportive care. The patient?s family was updated and expressed understanding of the plan of care. [facility] Disclaimer: The information contained in this section may have been updated after the patient was seen, as this information can be updated by other users. Medical History Aspiration of food Chronic static encephalopathy Autism Surgical History History of dental surgery Family History Father Diabetes Heart attack Kidney disease Stroke Mother Diabetes Grandmother Diabetes Grandfather Diabetes Social History Smoking Status: Never smoker alcohol intake: never substance use type: denies use current occupational status: disabled Travel in the last 8 weeks: None household members: other details: sister housing: house Other Medical History Have you received the Pneumonia Vaccine: No Review of Systems Review of Systems Review of systems (narrative): 13 point review of systems negative except as listed in HPI Meds Home Medications and Allergies Home Medications ?Medication ?Instructions ?Recorded ?Confirmed ?Type loratadine 10 mg tablet 10 mg PO DAILY 04/04/22 07/09/24 History polyethylene glycol 3350 17 17 g PO DAILY #510 grams 02/25/24 07/09/24 Rx gram/dose oral powder (Miralax) sertraline 100 mg tablet 200 mg (2 x 100 mg) PO DAILY #180 05/05/24 07/09/24 Rx tabs clonazepam 2 mg tablet 4 mg (2 x 2 mg) PO BID #120 tabs 05/18/24 07/09/24 Rx fluticasone propionate 50 1 spray intranasal DAILY 30 days 06/10/24 07/09/24 Rx mcg/actuation nasal #16 grams spray,suspension pantoprazole 40 mg tablet,delayed 40 mg PO DAILY #30 tabs 06/15/24 07/09/24 Rx release valacyclovir 1 gram tablet 1,000 mg PO DAILY #30 tabs 06/15/24 07/09/24 Rx trazodone 50 mg tablet 100 mg (2 x 50 mg) PO HS 30 days 06/19/24 07/09/24 Rx #60 tabs hydroxyzine HCl 50 mg tablet 50 mg PO BID 90 days #180 tabs 07/06/24 07/09/24 Rx levofloxacin 750 mg tablet 750 mg PO 1100 4 days #4 tabs 07/10/24 Rx New Prescriptions to Start Prescriptions: levofloxacin [place] Allergies Allergy/AdvReac Type Severity Reaction Status Date / Time aspirin AdvReac Adan's Verified 06/29/24 11:34 syndrome Exam Data for Last 24 hours Vital signs and Labs for Last 24 Hours: Temp Pulse Resp BP Pulse Ox O2 Del Method 98.6 F 100 H 37 H 112/75 92 L Room Air 07/09/24 17:41 07/09/24 21:00 07/09/24 21:30 07/09/24 21:30 07/09/24 21:30 07/09/24 21:30 Laboratory Results - last 24 hr 07/09/24 18:31: WBC 14.4 H, RBC 4.44, Hgb 12.5, Hct 38.1, MCV 85.8, MCH 28.2, MCHC 32.8, RDW 15.2, Plt Count 219, MPV 10.3, Neut % (Auto) 92.9 H, Lymph % (Auto) 2.8 L, [place] % (Auto) 3.5, Eos % (Auto) 0.0 L, Baso % (Auto) 0.2, Neut # (Auto) 13.4 H, Lymph # (Auto) 0.4 L, [place] # (Auto) 0.5, Eos # (Auto) 0.0, Baso # (Auto) 0.0, Total Counted 100, Neutrophils % (Manual) 92 H, Band Neutrophils % 4.0, Lymphocytes % (Manual) 2 L, Monocytes % (Manual) 2, Platelet Estimate Normal, RBC Morphology Normal, Sodium 141, Potassium 3.2 L, Chloride 105, Carbon Dioxide 25, Anion Gap 14.2, BUN 10, Creatinine 0.70, Estimated Creat Clear 90, Estimated GFR 87, Est GFR ( Amer) 105, Glucose 154 H, Lactate 1.6, Calcium 8.9, Total Bilirubin 0.5, AST 35, ALT 22, Alkaline Phosphatase 88, Troponin I < 0.01, Total Protein 8.1, Albumin 4.6, Globulin 3.5 H, Albumin/Globulin Ratio 1.3, Lipase 71 I & O for Last 24 hours: Intake & Output 07/06/24 07/07/24 07/08/24 07/09/24 23:59 23:59 23:59 23:59 Weight 63.503 kg Constitutional Constitutional: no acute distress *Routine HEENT Exam Head: Present normocephalic Eye: Present EOMI and PERRL ENT: Present mucous membranes moist *Routine Neck Exam Neck: Present supple; Absent lymphadenopathy *Routine Respiratory Exam Respiratory: Present CTA bilaterally *Routine Cardiovascular Exam Cardiovascular: Present RRR *Routine Abdominal Exam Abdominal: Present soft and normoactive bowel sounds; Absent tenderness *Routine Rectal Exam Rectal:: deferred *Routine Genitalia Exam Genitalia:: deferred *Routine Extremities Exam Extremities: Absent cyanosis, clubbing or edema *Routine Skin Exam Skin: Present warm; Absent rash *Routine Neurological Exam Neurological: Present alert, normal reflexes and moving all extremities Routine Psychiatric Exam Psychiatric: Present unable to assess Assessment and Plan *Assessment and plan (1) Pneumonia: Status: Acute Category: Medical Code(s): J18.9 - Pneumonia, unspecified organism (2) Cholelithiasis: Status: Acute Category: Medical Code(s): K80.20 - Calculus of gallbladder without cholecystitis without obstruction (3) Abdominal pain: Status: Acute Category: Medical Code(s): R10.9 - Unspecified abdominal pain (4) Aspiration of food: Status: Acute Category: Medical Code(s): T17.928A - Food in respiratory tract, part unspecified causing other injury, initial encounter; W44.F3XA - Food entering into or through a natural orifice, initial encounter (5) Mental disability: Status: Acute Category: Medical Code(s): F79 - Unspecified intellectual disabilities (6) Nausea & vomiting: Status: Acute Category: Medical Code(s): R11.2 - Nausea with vomiting, unspecified Plan Medical decision making: The patient is a 58-year-old nonverbal autistic female with a history of cholelithiasis, presenting with increased vocalizations, gritted teeth, and vomiting, which her family associates with pain. She was undergoing bowel prep for a scheduled colonoscopy when she began vomiting and was unable to keep fluids down. On arrival, she was tachycardic, tachypneic, and borderline hypoxic. Given concerns for aspiration and underlying infection, broad laboratory workup and imaging were performed. CT scan showed bilateral pneumonia, and labs revealed leukocytosis with neutrophilia and mild hypokalemia. She was treated with IV fluids, IV Zofran for nausea, and IV Zosyn for suspected aspiration pneumonia. Ativan and Haldol were administered for agitation to facilitate imaging. Due to meeting SIRS criteria in the setting of pneumonia, she was diagnosed with sepsis and requires admission for IV antibiotics, continued monitoring, and supportive care. Colonoscopy has been deferred given her acute illness. The hospitalist was consulted and accepted the patient for admission in stable condition. Sepsis secondary to pneumonia * Nonverbal autistic patient presenting with increased vocalizations and signs of discomfort, which family associates with pain. * CT scan shows bilateral pneumonia, concerning for aspiration pneumonia in the setting of recent vomiting. * Meets SIRS criteria with tachycardia, tachypnea, and leukocytosis (WBC 14.4 with neutrophilia) but remains hemodynamically stable. * IV Zosyn initiated for broad coverage, including aspiration pneumonia. * Avoided full sepsis fluid bolus due to risk of fluid overload and worsening respiratory status. * Monitor for signs of respiratory decompensation or worsening sepsis. Acute agitation in a nonverbal autistic patient * Increased restlessness and vocalizations likely due to pain, respiratory distress, or infection-related discomfort. * IV Ativan given initially with limited effect, followed by IV Haldol, which was effective for facilitating imaging. * Continue non-pharmacologic comfort measures as much as possible. * Consider PRN or scheduled medication for agitation if necessary during hospitalization. Cholelithiasis with planned outpatient cholecystectomy * Known history of gallstones with planned outpatient surgery, but currently no signs of acute cholecystitis on exam or imaging. * No rebound or rigidity noted, mild abdominal distension, and patient?s primary distress appears to be respiratory rather than abdominal in nature. * Will defer surgical intervention at this time, pending resolution of acute infection. * Surgical team may need to reassess the outpatient plan post-discharge. Nausea and vomiting * Vomiting occurred while taking bowel prep for a scheduled colonoscopy, leading to concerns for aspiration and dehydration. * No further vomiting after administration of IV Zofran and IV fluids in the ED. * Request routine consult with GI regarding status for outpatient EGD * Continuous IV fluid hydration, continue n.p.o. * Colonoscopy deferred at this time due to acute infection and aspiration risk. * Monitor for recurrence of nausea and vomiting. * Consider scheduled Zofran PRN for symptom management. Hypokalemia (3.2) * Likely due to vomiting and recent illness. * Replete potassium as needed and monitor levels during hospitalization. Hyperglycemia (154) without known diabetes * Likely stress hyperglycemia related to acute illness. * Monitor blood glucose levels during admission. Disposition * Admitted to hospital medicine in stable condition for continued IV antibiotics, supportive care, and further monitoring of respiratory status, agitation, and nausea. * Family updated and in agreement with the plan. Rounded on patient after nurse practitioner. Personally examined and interviewed patient. Agree with exam findings and care plan as documented.
--- NOTE | 2024-07-09 22:27 | PC.NURSE ---
REport called to Deric Belcher RN
[2024-07-09 22:28] LABS: Bacteria,Urine 2+ /lpf
[2024-07-09 22:29] LABS: Mucus,Urine 4+ /lpf
[2024-07-09 22:31] LABS: Troponin I < 0.01 ng/ml (0.00-0.034)
--- NOTE | 2024-07-09 23:01 | PC.NURSE ---
Patient arrived to floor via stretcher from ED at 23:00.
[2024-07-10] VITALS: BP 113/47; PULSE 93; RESP 16; TEMP 36.8; O2SAT 91
[2024-07-10] MEDS: 0.9 % SODIUM CHLORIDE 1000ML 1,000 ML 50 ML IV (01:02)
[2024-07-10 01:28] LABS: Troponin I < 0.01 ng/ml (0.00-0.034)
--- NOTE | 2024-07-10 02:15 | PC.NURSE ---
lab called needing a second set of blood cultures. only one set of cultures were collected in ED and ABX had already been given in ED. notified Kana ALLAN, he said cancel the order at this time since abx has already been started. notified lab to cancel order.
[2024-07-10 04:00] VITALS: BP 95/55; PULSE 93; RESP 16; TEMP 37.8; O2SAT 90; BMI 29.0
--- NOTE | 2024-07-10 05:11 | PC.NURSE ---
pt has slept since arriving to floor. sister has stayed at bs. unable to determine pts mentation, per sister pts mind is of an 18-24 month old and at home she will get on the floor and crawl around, getting into things such as a toddler would. also says pt walks independently at home but knees do not bend. hx of throat paralysis, sister crushes meds in pudding. around 0400 temp of 100.0, notified penny ALLAN and received an order for iv tylenol. bed alarm on for pt safety even when sister is in the room.
[2024-07-10] MEDS: ACETAMINOPHEN 1,000MG/100ML VIAL 1000 MG IV (05:33)
[2024-07-10] MEDS: PIPERCILLIN/TAZO 3.375 GM in 0.9 % SODIUM CHLORIDE 50 ML IV (05:34)
--- NOTE | 2024-07-10 07:02 | EXP.SURG.CON ---
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 She is nonverbal and often drooling, grunting, and spitting. She does have a very strong family support system. I have seen the patient in the outpatient setting for greater than a year as she has a diagnosis of gallstones. She has had a lack of interest in eating. Radiographic evaluation did reveal uncomplicated gallstones. Due to patient's baseline status it has been impossible to determine if gallbladder had been an etiology in her decreased interest in eating characterized by behavioral change. Due to the lack of clear correlation of her symptoms to gallstones without sonographic evidence of chronic cholecystitis for some time cholecystectomy was deferred. I had her undergo evaluation with gastroenterology who recommended against cholecystectomy. However patient subsequently has had progressively decreased oral intake and lack of interest in eating. Her primary care provider had felt that consideration of cholecystectomy was reasonable. I had last seen her in the office on 06/23/24 and after prolonged discussion plan was made to proceed with outpatient cholecystectomy which was scheduled for 07/16/2024. However, she had presented to the emergency department on 06/29/2024 with food intolerance and decreased oral intake. Family had noticed some blood on her pillow and it was unclear as to the source. Workup at that time also revealed positivity for COVID. She was stable and able to be managed as an outpatient. Recommendations by the ER physician were for possible outpatient EGD prior to cholecystectomy. Arrangements were made for outpatient EGD for today on 07/10/2024. Family had requested possible colonoscopy as well as she has never had colonoscopy for screening purposes. Bowel prep was initiated on 07/09/2024. Patient had developed cramping abdominal pain and nausea with increased agitation characterized by increased gritting of her teeth and more frequent yelling. She was brought to the emergency department. Evaluation in the emergency department revealed the patient to be tachycardic, tachypneic, and borderline hypoxic. She reported had signs of increased work of breathing. She was found to have a leukocytosis of 14,000 with marked neutrophilia. She had CT scan of the chest and CT scan of the abdomen and pelvis. CT scan of the abdomen revealed findings of possible enterocolitis. However, the patient had undergone bowel preparation in anticipation of colonoscopy. CT scan of the chest revealed findings of possible bilateral pneumonia. She was admitted for inpatient management for sepsis and pneumonia. . [facility] Disclaimer: The information contained in this section may have been updated after the patient was seen, as this information can be updated by other users. Medical History Aspiration of food Chronic static encephalopathy Autism Surgical History History of dental surgery Family History Father Diabetes Heart attack Kidney disease Stroke Mother Diabetes Grandmother Diabetes Grandfather Diabetes Social History Smoking Status: Never smoker alcohol intake: never substance use type: denies use current occupational status: disabled Travel in the last 8 weeks: None household members: other details: sister housing: house Have you lived/traveled outside [place] in past 30 days?: No Contact w/someone who lives/traveled outside [place] past 30 days?: No Exposure to someone with infectious disease in past 14 days?: No Do you have a fever (greater than 100.4 F or 38 C)?: No Have you tested positive for COVID-19: No Exposed to someone with COVID-19 in past 14 days?: No Do you have a sore throat?: No Do you have a cough?: No Do you have any weakness?: No Are you experiencing any nausea/vomitting?: No Do you have any diarrhea?: No Are you experiencing any unusual bleeding?: No Do you have any muscle aches/pain?: No Do you have any abdominal pain?: Yes Are you experiencing loss of taste or smell?: No Meds Home Medications and Allergies Home Medications ?Medication ?Instructions ?Recorded ?Confirmed ?Type loratadine 10 mg tablet 10 mg PO DAILY 04/04/22 07/09/24 History polyethylene glycol 3350 17 17 g PO DAILY #510 grams 02/25/24 07/09/24 Rx gram/dose oral powder (Miralax) sertraline 100 mg tablet 200 mg (2 x 100 mg) PO DAILY #180 12/17/24 02/20/25 Rx tabs clonazepam 2 mg tablet 4 mg (2 x 2 mg) PO BID #120 tabs 05/18/24 07/09/24 Rx fluticasone propionate 50 1 spray intranasal DAILY 30 days 06/10/24 07/09/24 Rx mcg/actuation nasal #16 grams spray,suspension pantoprazole 40 mg tablet,delayed 40 mg PO DAILY #30 tabs 06/15/24 07/09/24 Rx release valacyclovir 1 gram tablet 1,000 mg PO DAILY #30 tabs 06/15/24 07/09/24 Rx trazodone 50 mg tablet 100 mg (2 x 50 mg) PO HS 30 days 06/19/24 07/09/24 Rx #60 tabs hydroxyzine HCl 50 mg tablet 50 mg PO BID 90 days #180 tabs 07/06/24 07/09/24 Rx New Prescriptions to Start Prescriptions: Allergies Allergy/AdvReac Type Severity Reaction Status Date / Time aspirin AdvReac Adan's Verified 06/29/24 11:34 syndrome Exam (Inpt) Vital signs and Labs for Last 24 Hours: Temp Pulse Resp BP Pulse Ox O2 Del Method O2 Flow Rate 100.0 F H 93 H 16 95/55 L 90 L Nasal Cannula 2 07/10/24 04:00 07/10/24 04:00 07/10/24 04:00 07/10/24 04:00 07/10/24 04:00 07/10/24 06:57 07/10/24 06:57 Laboratory Results - last 24 hr 07/09/24 18:31: WBC 14.4 H, RBC 4.44, Hgb 12.5, Hct 38.1, MCV 85.8, MCH 28.2, MCHC 32.8, RDW 15.2, Plt Count 219, MPV 10.3, Neut % (Auto) 92.9 H, Lymph % (Auto) 2.8 L, [place] % (Auto) 3.5, Eos % (Auto) 0.0 L, Baso % (Auto) 0.2, Neut # (Auto) 13.4 H, Lymph # (Auto) 0.4 L, [place] # (Auto) 0.5, Eos # (Auto) 0.0, Baso # (Auto) 0.0, Total Counted 100, Neutrophils % (Manual) 92 H, Band Neutrophils % 4.0, Lymphocytes % (Manual) 2 L, Monocytes % (Manual) 2, Platelet Estimate Normal, RBC Morphology Normal, Sodium 141, Potassium 3.2 L, Chloride 105, Carbon Dioxide 25, Anion Gap 14.2, BUN 10, Creatinine 0.70, Estimated Creat Clear 90, Estimated GFR 87, Est GFR ( Amer) 105, Glucose 154 H, Lactate 1.6, Calcium 8.9, Total Bilirubin 0.5, AST 35, ALT 22, Alkaline Phosphatase 88, Troponin I < 0.01, Total Protein 8.1, Albumin 4.6, Globulin 3.5 H, Albumin/Globulin Ratio 1.3, Lipase 71 07/09/24 21:20: Urine Color Yellow, Urine Appearance Clear, Urine pH 6.0, Ur Specific [place] 1.020, Urine Protein Negative, Urine Glucose (UA) Negative, Urine Ketones Negative, Urine Blood Trace-i, Urine Nitrate Negative, Urine Bilirubin Negative, Urine Urobilinogen 0.2, Ur Leukocyte Esterase Negative, Urine RBC 3-5, Urine WBC 5-10, Ur Squamous Epith Cells 5-10, Urine Bacteria 2+, Urine Mucus 4+ 07/09/24 22:00: Troponin I < 0.01 07/10/24 00:40: Troponin I < 0.01 I & O for Labs for Last 24 Hours: Intake & Output 07/07/24 07/08/24 07/09/24 07/10/24 11:59 11:59 11:59 11:59 Intake Total 237 / 237 Output Total 0 / 0 Balance 237 / 237 Weight 148 lb 1.6 oz Results Labs 07/09/24 18:31 07/10/24 06:10 Labs: Laboratory Results - last 24 hr 07/09/24 18:31: WBC 14.4 H, RBC 4.44, Hgb 12.5, Hct 38.1, MCV 85.8, MCH 28.2, MCHC 32.8, RDW 15.2, Plt Count 219, MPV 10.3, Neut % (Auto) 92.9 H, Lymph % (Auto) 2.8 L, [place] % (Auto) 3.5, Eos % (Auto) 0.0 L, Baso % (Auto) 0.2, Neut # (Auto) 13.4 H, Lymph # (Auto) 0.4 L, [place] # (Auto) 0.5, Eos # (Auto) 0.0, Baso # (Auto) 0.0, Total Counted 100, Neutrophils % (Manual) 92 H, Band Neutrophils % 4.0, Lymphocytes % (Manual) 2 L, Monocytes % (Manual) 2, Platelet Estimate Normal, RBC Morphology Normal, Sodium 141, Potassium 3.2 L, Chloride 105, Carbon Dioxide 25, Anion Gap 14.2, BUN 10, Creatinine 0.70, Estimated Creat Clear 90, Estimated GFR 87, Est GFR ( Amer) 105, Glucose 154 H, Lactate 1.6, Calcium 8.9, Total Bilirubin 0.5, AST 35, ALT 22, Alkaline Phosphatase 88, Troponin I < 0.01, Total Protein 8.1, Albumin 4.6, Globulin 3.5 H, Albumin/Globulin Ratio 1.3, Lipase 71 07/09/24 21:20: Urine Color Yellow, Urine Appearance Clear, Urine pH 6.0, Ur Specific [place] 1.020, Urine Protein Negative, Urine Glucose (UA) Negative, Urine Ketones Negative, Urine Blood Trace-i, Urine Nitrate Negative, Urine Bilirubin Negative, Urine Urobilinogen 0.2, Ur Leukocyte Esterase Negative, Urine RBC 3-5, Urine WBC 5-10, Ur Squamous Epith Cells 5-10, Urine Bacteria 2+, Urine Mucus 4+ 07/09/24 22:00: Troponin I < 0.01 07/10/24 00:40: Troponin I < 0.01 Assessment and Plan *Assessment and plan (1) Nausea & vomiting: Status: Acute Category: Medical Code(s): R11.2 - Nausea with vomiting, unspecified Plan Plan to forego definite upper endoscopy with or without colonoscopy at this time pending additional investigation to evaluate for possible acute respiratory ailment.
[2024-07-10 07:04] LABS: Chloride 108 mmol/L (98-107); Sodium 139 mmol/L (136-145)
[2024-07-10 07:05] LABS: Potassium 3.1 mmoL/L (3.5-5.1)
[2024-07-10 07:07] LABS: Anion Gap 15.1 mEq/L (5-15); Blood Urea Nitrogen 10 mg/dl (7-17); Carbon Dioxide 19 mmol/L (22.0-30.0); Creatinine Clearance Estimated 111 mL/min (50-200); Estimated Glomerular Filt Rate 103 ml/min (>60); GFR (African American) 125 ML/MIN (>60)
[2024-07-10 07:08] LABS: Glucose 118 mg/dl (74-100); Magnesium 1.7 mg/dl (1.6-2.3)
[2024-07-10 08:00] VITALS: BP 94/57; PULSE 72; RESP 18; TEMP 37.3; O2SAT 92
--- NOTE | 2024-07-10 08:35 | HMH.PHAINT1 ---
Pharmacy Intervention Comments: MEDICATION RECONCILIATION COMPLETED ON PATIENT USING EXTERNAL FILL HISTORY FROM PHARMACY AND LIST FROM PCP OFFICE. -ISABEL MO, SABRINAD
[2024-07-10] MEDS: PANTOPRAZOLE 40MG VIAL 40 MG IV (09:20)
[2024-07-10] MEDS: MAGNESIUM SULFATE IN WATER 2 GM/50 ML PIGGYBACK IV (09:20)
[2024-07-10] MEDS: ENOXAPARIN 40MG/0.4ML SYRINGE 40 MG SUBCUT (09:20)
[2024-07-10 11:00] LABS: Coronavirus 19, PCR Not Detected (NotDetected); Human Rhinovirus Not Detected (NotDetected); Influenza A, PCR Not Detected (NotDetected); Influenza B, PCR Not Detected (NotDetected); Respiratory Syncytial Virus Not Detected (NotDetected)
[2024-07-10] MEDS: SERTRALINE 100MG TABLET 200 MG PO (11:47)
[2024-07-10] MEDS: levoFLOXacin 750 MG TABLET PO (11:47)
[2024-07-10] MEDS: hydrOXYzine pamoate 25MG CAPSULE 50 MG PO (11:47)
[2024-07-10] MEDS: clonazePAM 1MG TABLET 4 MG PO (11:48)
[2024-07-10 11:49] VITALS: BMI 29.0
--- NOTE | 2024-07-10 12:42 | EXP.DC.SUM ---
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 She is nonverbal and often drooling, grunting, and spitting. She does have a very strong family support system. I have seen the patient in the outpatient setting for greater than a year as she has a diagnosis of gallstones. She has had a lack of interest in eating. Radiographic evaluation did reveal uncomplicated gallstones. Due to patient's baseline status it has been impossible to determine if gallbladder had been an etiology in her decreased interest in eating characterized by behavioral change. Due to the lack of clear correlation of her symptoms to gallstones without sonographic evidence of chronic cholecystitis for some time cholecystectomy was deferred. I had her undergo evaluation with gastroenterology who recommended against cholecystectomy. However patient subsequently has had progressively decreased oral intake and lack of interest in eating. Her primary care provider had felt that consideration of cholecystectomy was reasonable. I had last seen her in the office on 06/23/24 and after prolonged discussion plan was made to proceed with outpatient cholecystectomy which was scheduled for 07/16/2024. However, she had presented to the emergency department on 06/29/2024 with food intolerance and decreased oral intake. Family had noticed some blood on her pillow and it was unclear as to the source. Workup at that time also revealed positivity for COVID. She was stable and able to be managed as an outpatient. Recommendations by the ER physician were for possible outpatient EGD prior to cholecystectomy. Arrangements were made for outpatient EGD for today on 07/10/2024. Family had requested possible colonoscopy as well as she has never had colonoscopy for screening purposes. Bowel prep was initiated on 07/09/2024. Patient had developed cramping abdominal pain and nausea with increased agitation characterized by increased gritting of her teeth and more frequent yelling. She was brought to the emergency department. Evaluation in the emergency department revealed the patient to be tachycardic, tachypneic, and borderline hypoxic. She reported had signs of increased work of breathing. She was found to have a leukocytosis of 14,000 with marked neutrophilia. She had CT scan of the chest and CT scan of the abdomen and pelvis. CT scan of the abdomen revealed findings of possible enterocolitis. However, the patient had undergone bowel preparation in anticipation of colonoscopy. CT scan of the chest revealed findings of possible bilateral pneumonia. She was admitted for inpatient management for sepsis and pneumonia. . 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 Additionally has a history of cholelithiasis, presenting with increased vocalizations, gritted teeth, and vomiting, which her family associates with pain. She was undergoing bowel prep for a scheduled colonoscopy when she began vomiting and was unable to keep fluids down. On arrival, she was tachycardic, tachypneic, and borderline hypoxic. Given concerns for aspiration and underlying infection, broad laboratory workup and imaging were performed. CT scan showed bilateral pneumonia, and labs revealed leukocytosis with neutrophilia and mild hypokalemia. She was treated with IV fluids, IV Zofran for nausea, and IV Zosyn for suspected aspiration pneumonia. Ativan and Haldol were administered for agitation to facilitate imaging. Due to meeting SIRS criteria in the setting of pneumonia, she was diagnosed with sepsis and requires admission for IV antibiotics, continued monitoring, and supportive care. Colonoscopy has been deferred given her acute illness. The hospitalist was consulted and accepted the patient for admission in stable condition. Patient transitioned to room air by morning. At baseline level of function per sister at bedside. Extensive discussion about further workup for her abdomen including EGD, colonoscopy, cholecystectomy. At this time we will treat for pneumonia and have close follow-up with surgery to discuss further evaluations. Stable to discharge home. Problems addressed as follows: Sepsis secondary to pneumonia New oxygen requirement -Due to patient's nonverbal status, she is unable to provide any history or review of systems. She was found on CT to have lower lobe pneumonia concerning for aspiration. In discussion with family, previous workup with barium swallows have shown concern for aspiration. Family does not have interested in a feeding tube given risks outweighing benefits. Strong concern patient would pull tube out, have increased risk for infection, would not resolve risk for aspiration from oral secretions. Antibiotics transitioned from Zosyn to Levaquin. Weaned to room air by morning. White count remained elevated consistent with infection. Due to her infection, colonoscopy is postponed at this time. Additional symptoms such as vomiting and diarrhea likely related to bowel prep as they began after she started that treatment. Given her return to baseline function, transition room air, afebrile status, will treat with Levaquin once daily for total of 5 days. Acute agitation in a nonverbal patient with chronic encephalopathy ic patient History of Fernando syndrome -Patient exhibiting self stimulating behavior. Family states she is at her baseline level of mobility and function. Decision made after much discussion the patient would likely be more comfortable in her home environment. Clinically stable at this time. Tolerating oral medications. Cholelithiasis with planned outpatient cholecystectomy Suspected esophagitis, concern for nausea and vomiting -History of gallstones on imaging. Does not have any elevation in liver enzymes. Does not have a positive Sandy sign on exam. No concerns for acute cholecystitis at this time. Warrants further workup with surgery including EGD and possible cholecystectomy given patient's symptoms as an outpatient. Family does state the patient has not been eating well however review of her chart shows that her weight has been stable over the past 2 years. She does not show signs of weight loss or malnutrition. Electrolyte disturbances: Electrolytes replaced IV. New home patient is full for behavior including trazodone, Zoloft, hydroxyzine, Klonopin Total time spent on discharge 32 minutes in counseling, documentation, chart review, and direct care with patient. Exam Data for Last 24 hours Vital signs and Labs for Last 24 Hours: Temp Pulse Resp BP Pulse Ox O2 Del Method O2 Flow Rate 99.1 F 72 18 94/57 L 92 L Nasal Cannula 2 07/10/24 08:00 07/10/24 08:00 07/10/24 08:00 07/10/24 08:00 07/10/24 08:00 07/10/24 11:00 07/10/24 11:00 Laboratory Results - last 24 hr 07/09/24 18:31: WBC 14.4 H, RBC 4.44, Hgb 12.5, Hct 38.1, MCV 85.8, MCH 28.2, MCHC 32.8, RDW 15.2, Plt Count 219, MPV 10.3, Neut % (Auto) 92.9 H, Lymph % (Auto) 2.8 L, Caroline % (Auto) 3.5, Eos % (Auto) 0.0 L, Baso % (Auto) 0.2, Neut # (Auto) 13.4 H, Lymph # (Auto) 0.4 L, Caroline # (Auto) 0.5, Eos # (Auto) 0.0, Baso # (Auto) 0.0, Total Counted 100, Neutrophils % (Manual) 92 H, Band Neutrophils % 4.0, Lymphocytes % (Manual) 2 L, Monocytes % (Manual) 2, Platelet Estimate Normal, RBC Morphology Normal, Sodium 141, Potassium 3.2 L, Chloride 105, Carbon Dioxide 25, Anion Gap 14.2, BUN 10, Creatinine 0.70, Estimated Creat Clear 90, Estimated GFR 87, Est GFR ( Amer) 105, Glucose 154 H, Lactate 1.6, Calcium 8.9, Total Bilirubin 0.5, AST 35, ALT 22, Alkaline Phosphatase 88, Troponin I < 0.01, Total Protein 8.1, Albumin 4.6, Globulin 3.5 H, Albumin/Globulin Ratio 1.3, Lipase 71 07/09/24 21:20: Urine Color Yellow, Urine Appearance Clear, Urine pH 6.0, Ur Specific [place] 1.020, Urine Protein Negative, Urine Glucose (UA) Negative, Urine Ketones Negative, Urine Blood Trace-i, Urine Nitrate Negative, Urine Bilirubin Negative, Urine Urobilinogen 0.2, Ur Leukocyte Esterase Negative, Urine RBC 3-5, Urine WBC 5-10, Ur Squamous Epith Cells 5-10, Urine Bacteria 2+, Urine Mucus 4+ 07/09/24 22:00: Troponin I < 0.01 07/10/24 00:40: Troponin I < 0.01 07/10/24 06:10: Sodium 139, Potassium 3.1 L, Chloride 108 H, Carbon Dioxide 19 L, Anion Gap 15.1 H, BUN 10, Creatinine 0.60, Estimated Creat Clear 111, Estimated GFR 103, Est GFR ( Amer) 125, Glucose 118 H D, Calcium 8.0 L, Magnesium 1.7 I & O for Last 24 hours: Intake & Output 07/07/24 07/08/24 07/09/24 07/10/24 23:59 23:59 23:59 23:59 Intake Total 237 / 237 Output Total 0 / 0 Balance 237 / 237 Weight 63.458 kg 67.17 kg Constitutional Constitutional: no acute distress, average body habitus, chronically ill appearing, disheveled, cooperative and agitated *Routine HEENT Exam Head: Present normocephalic Eye: Present EOMI ENT: Present mucous membranes moist Comments: poor dentition *Routine Neck Exam Neck: Present supple; Absent lymphadenopathy *Routine Respiratory Exam Respiratory: Present CTA bilaterally and rhonchi; Absent wheezes or crackles *Routine Cardiovascular Exam Cardiovascular: Present RRR *Routine Abdominal Exam Abdominal: Present soft and normoactive bowel sounds; Absent tenderness Comments: Negative Sandy sign *Routine Rectal Exam Patient deferred: visual exam *Routine Exam Patient deferred: external exam *Routine Extremities Exam Extremities: Absent cyanosis, clubbing or edema *Routine Skin Exam Skin: Present intact and warm; Absent rash *Routine Neurological Exam Neurological: Present alert, altered mental status and moving all extremities Comments: Nonverbal, does not follow commands. Does not appear to have painful response with deep palpation of right upper quadrant. Did find blood draws painful. In no acute distress at this time; exhibiting self stimulating behavior Results Data Completed and Pending Labs on day of discharge: Labs from last 24 hours 07/10/24 07/10/24 07/09/24 06:10 00:40 22:00 WBC RBC Hgb Hct MCV MCH MCHC RDW Plt Count MPV Neut % (Auto) Lymph % (Auto) Caroline % (Auto) Eos % (Auto) Baso % (Auto) Neut # (Auto) Lymph # (Auto) Caroline # (Auto) Eos # (Auto) Baso # (Auto) Total Counted Neutrophils % (Manual) Band Neutrophils % Lymphocytes % (Manual) Monocytes % (Manual) Platelet Estimate RBC Morphology Sodium 139 Potassium 3.1 L Chloride 108 H Carbon Dioxide 19 L Anion Gap 15.1 H BUN 10 Creatinine 0.60 Estimated Creat Clear 111 Estimated GFR 103 Est GFR ( Amer) 125 Glucose 118 H D Lactate Calcium 8.0 L Magnesium 1.7 Total Bilirubin AST ALT Alkaline Phosphatase Troponin I < 0.01 < 0.01 Total Protein Albumin Globulin Albumin/Globulin Ratio Lipase Urine Color Urine Appearance Urine pH Ur Specific [place] Urine Protein Urine Glucose (UA) Urine Ketones Urine Blood Urine Nitrate Urine Bilirubin Urine Urobilinogen Ur Leukocyte Esterase Urine RBC Urine WBC Ur Squamous Epith Cells Urine Bacteria Urine Mucus 07/09/24 07/09/24 21:20 18:31 WBC 14.4 H RBC 4.44 Hgb 12.5 Hct 38.1 MCV 85.8 MCH 28.2 MCHC 32.8 RDW 15.2 Plt Count 219 MPV 10.3 Neut % (Auto) 92.9 H Lymph % (Auto) 2.8 L Caroline % (Auto) 3.5 Eos % (Auto) 0.0 L Baso % (Auto) 0.2 Neut # (Auto) 13.4 H Lymph # (Auto) 0.4 L Caroline # (Auto) 0.5 Eos # (Auto) 0.0 Baso # (Auto) 0.0 Total Counted 100 Neutrophils % (Manual) 92 H Band Neutrophils % 4.0 Lymphocytes % (Manual) 2 L Monocytes % (Manual) 2 Platelet Estimate Normal RBC Morphology Normal Sodium 141 Potassium 3.2 L Chloride 105 Carbon Dioxide 25 Anion Gap 14.2 BUN 10 Creatinine 0.70 Estimated Creat Clear 90 Estimated GFR 87 Est GFR ( Amer) 105 Glucose 154 H Lactate 1.6 Calcium 8.9 Magnesium Total Bilirubin 0.5 AST 35 ALT 22 Alkaline Phosphatase 88 Troponin I < 0.01 Total Protein 8.1 Albumin 4.6 Globulin 3.5 H Albumin/Globulin Ratio 1.3 Lipase 71 Urine Color Yellow Urine Appearance Clear Urine pH 6.0 Ur Specific [place] 1.020 Urine Protein Negative Urine Glucose (UA) Negative Urine Ketones Negative Urine Blood Trace-i Urine Nitrate Negative Urine Bilirubin Negative Urine Urobilinogen 0.2 Ur Leukocyte Esterase Negative Urine RBC 3-5 Urine WBC 5-10 Ur Squamous Epith Cells 5-10 Urine Bacteria 2+ Urine Mucus 4+ DS: Diagnosis Discharge Diagnosis (1) Nausea & vomiting: Status: Acute Code(s): R11.2 - Nausea with vomiting, unspecified Meds Home Medications and Allergies Home Medications ?Medication ?Instructions ?Recorded ?Confirmed ?Type loratadine 10 mg tablet 10 mg PO DAILY 04/04/22 07/09/24 History polyethylene glycol 3350 17 17 g PO DAILY #510 grams 02/25/24 07/09/24 Rx gram/dose oral powder (Miralax) sertraline 100 mg tablet 200 mg (2 x 100 mg) PO DAILY #180 05/05/24 07/09/24 Rx tabs clonazepam 2 mg tablet 4 mg (2 x 2 mg) PO BID #120 tabs 05/18/24 07/09/24 Rx fluticasone propionate 50 1 spray intranasal DAILY 30 days 06/10/24 07/09/24 Rx mcg/actuation nasal #16 grams spray,suspension pantoprazole 40 mg tablet,delayed 40 mg PO DAILY #30 tabs 06/15/24 07/09/24 Rx release valacyclovir 1 gram tablet 1,000 mg PO DAILY #30 tabs 06/15/24 07/09/24 Rx trazodone 50 mg tablet 100 mg (2 x 50 mg) PO HS 30 days 06/19/24 07/09/24 Rx #60 tabs hydroxyzine HCl 50 mg tablet 50 mg PO BID 90 days #180 tabs 07/06/24 07/09/24 Rx levofloxacin 750 mg tablet 750 mg PO 1100 4 days #4 tabs 07/10/24 Rx New Prescriptions to Start Prescriptions: levofloxacin Bismark Crawford Allergies Allergy/AdvReac Type Severity Reaction Status Date / Time aspirin AdvReac Adan's Verified 06/29/24 11:34 syndrome Discharge Plan Disposition Patient Disposition: Home, Self-Care Condition: Fair Follow up Plan Follow up with: Sami Goldman MD [Staff Physician] - 07/14/24 9:15 am (3-5 days) Walt Howell MD [Primary Care Provider] - 07/20/24 11:30 am Prescriptions/Medication Reconciliation: New levofloxacin 750 mg Tablet 750 mg PO 1100 4 Days Qty: 4 0RF Continued loratadine 10 mg tablet 10 mg PO DAILY Patient Comments: TAKE 1 TABLET BY MOUTH EVERY DAY polyethylene glycol 3350 [Miralax] 17 gram/dose powder 17 g PO DAILY Qty: 510 11RF pantoprazole 40 mg tablet,delayed release (DR/EC) 40 mg PO DAILY Qty: 30 5RF valacyclovir 1 gram tablet 1,000 mg PO DAILY Qty: 30 3RF sertraline 100 mg tablet 200 mg PO DAILY Qty: 180 0RF clonazepam 2 mg tablet 4 mg PO BID Qty: 120 2RF fluticasone propionate 50 mcg/actuation spray,suspension 1 spray intranasal DAILY 30 Days Qty: 16 2RF Patient Comments: USE 2 PUFFS IN EACH NOSTRIL EVERY DAY trazodone 50 mg tablet 100 mg PO HS 30 Days Qty: 60 2RF hydroxyzine HCl 50 mg tablet 50 mg PO BID 90 Days Qty: 180 0RF Problem Reconciliation Problems Reviewed?: Yes Patient Discharge Instructions ACTIVITY: Continue current activity DIET: continue same diet Patient Instructions: DI for Nausea -- Adult, DI for Vomiting -- Adult Print Language: Romansh Providers Primary Care Provider: Walt Howell Admit Provider: Bismark Crawford Attending Provider: Bismark Crawford
[2024-07-10 13:05] LABS: Basophils # 0.1 K/mm3 (0-0.2); Basophils % 0.4 % (0.1-2.0); Eosinophils % 0.1 % (0.1-12.0); Hematocrit 38.4 % (37.0-47.0); Lymphocytes # 2.2 K/mm3 (0.7-4.5); Lymphocytes % 8.6 % (10-50); Mean Corpuscular HGB Conc 33.9 g/dL (31.8-35.4); Mean Corpuscular Hemoglobin 28.2 pg (27.0-31.2); Mean Corpuscular Volume 83.3 fl (81-99); Monocytes # 1.2 K/mm3 (0.1-1.0); Monocytes % 4.8 % (1.7-9.3); Neutrophils # 21.3 K/mm3 (1.8-7.8); Neutrophils % 84.4 % (37.0-80.0); Platelet Count 245 K/mm3 (142-424); Red Blood Count 4.61 M/mm3 (4.20-5.40); Red Cell Distribution Width 15.3 % (11.5-17.5); White Blood Count 25.3 K/mm3 (4.8-10.8)
[2024-07-10 13:08] LABS: MANUAL DIFFERENTIAL MANUAL DIFFERENTIAL (MANUAL DIFF)
[2024-07-10 13:56] LABS: Lymphocytes % 10 % (10-50); Monocytes % 5 % (2-9); Neutrophils % 70 % (42-76); Total Cells Counted 100
[2024-07-10 13:57] LABS: Platelet Estimate Normal; RBC Morphology Normal
--- NOTE | 2024-07-14 10:11 | SW/DCPLANNER ---
Phoned patient x2. Left message with name and call back number. Everardo Milligan
--- NOTE | 2024-07-15 11:42 | SW/DCPLANNER ---
Spoke with patients transition of care specialist. Patients transition of care specialist stated that she is doing okay. Patients transition of care specialist stated that they are aware of her upcoming appointments. Patients primary transition of care specialist stated that she has a complaint and i gave her Meghan Loera number. Patients transition of care specialist stated that she has no other concerns or questions at this time. Everardo Milligan
== END 2024-07-10 13:41 | disposition home or self-care (01) ==
LOC: ER 18:05 → 2ND 22:08
PROVIDERS: Nurse Practitioner Family; Admitting Provider Internal Medicine Adolescent Medicine; Emergency Provider Emergency Medicine; PCP Family Medicine; Visit Provider Internal Medicine Adolescent Medicine
DX: J18.9 Pneumonia, unspecified organism (principal); R11.2 Nausea with vomiting, unspecified; K80.20 Calculus of gallbladder without cholecystitis without obstruction; R10.9 Unspecified abdominal pain; F79 Unspecified intellectual disabilities; F84.0 Autistic disorder; G93.49 Other encephalopathy; Z79.899 Other long term (current) drug therapy
CPT/HCPCS: 36415; 71275; 74177; 80048; 80053; 81001; 83605; 83690; 83735; 84484; 85007; 85025; 85027; 87040; 87086; 87088; 87186; 87631; 99221; 99291; G0378; J0131; J1630; J1650; J2060; J2405; J2543; J3475; J7030; J7120; Q9967

== ENCOUNTER 2024-07-14 18:32 | Outpatient (CLI) | payer MEDICARE, MEDICAID, SELFPAY ==
[2024-07-14 16:54] LABS: Basophils % 0.2 % (0.1-2.0); Eosinophils # 0.2 K/mm3 (0.0-0.4); Eosinophils % 2.4 % (0.1-12.0); Hematocrit 34.6 % (37.0-47.0); Hemoglobin 11.7 g/dL (12.2-16.2); Lymphocytes # 2.1 K/mm3 (0.7-4.5); Lymphocytes % 21.8 % (10-50); Mean Corpuscular HGB Conc 33.8 g/dL (31.8-35.4); Mean Corpuscular Hemoglobin 27.9 pg (27.0-31.2); Mean Corpuscular Volume 82.4 fl (81-99); Mean Platelet Volume 11.2 fl (7.4-10.4); Monocytes # 0.8 K/mm3 (0.1-1.0); Monocytes % 8.3 % (1.7-9.3); Neutrophils # 6.5 K/mm3 (1.8-7.8); Neutrophils % 66.6 % (37.0-80.0); Platelet Count 266 K/mm3 (142-424); Red Cell Distribution Width 15.8 % (11.5-17.5); White Blood Count 9.8 K/mm3 (4.8-10.8)
[2024-07-14 17:20] LABS: Albumin Level 3.8 g/dl (3.5-5.0); Chloride 106 mmol/L (98-107); Potassium 3.1 mmoL/L (3.5-5.1); Sodium 143 mmol/L (136-145)
[2024-07-14 17:23] LABS: Alanine Aminotransferase 23 U/L (12-78); Albumin/Globulin Ratio 1.4 (1.1-1.8); Alkaline Phosphatase 84 U/L (38-126); Anion Gap 13.1 mEq/L (5-15); Aspartate Amino Transferase 39 U/L (14-36); Bilirubin,Total 0.3 mg/dl (0.2-1.3); Blood Urea Nitrogen 17 mg/dl (7-17); Carbon Dioxide 27 mmol/L (22.0-30.0); Estimated Glomerular Filt Rate 128 ml/min (>60); GFR (African American) 154 ML/MIN (>60); Globulin 2.7 g/dL (1.3-3.2); Total Protein,Serum 6.5 g/dl (6.3-8.2)
[2024-07-14 17:24] LABS: Calcium 8.8 mg/dl (8.4-10.2); Glucose 114 mg/dl (74-100)
== END 2024-07-14 23:59 | disposition home or self-care (01) ==
LOC: LAB.DROPOF 18:33
PROVIDERS: PCP Family Medicine; Visit Provider Family Medicine
DX: K80.20 Calculus of gallbladder without cholecystitis without obstruction (principal)
CPT/HCPCS: 80053; 85025

== ENCOUNTER 2024-07-24 06:09 | Day surgery (SDC) | payer MEDICARE, MEDICAID, SELFPAY ==
[2024-07-21 16:25] VITALS: BMI 26.4
[2024-07-24 06:39] VITALS: BP 137/71; PULSE 72; RESP 24; TEMP 36.3; O2SAT 99
--- NOTE | 2024-07-24 06:49 | P.HP_ITS ---
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 She is nonverbal and often drooling, grunting, and spitting. She does have a very strong family support system. I have seen the patient in the outpatient setting for greater than a year as she has a diagnosis of gallstones. She has had a lack of interest in eating. Radiographic evaluation did reveal uncomplicated gallstones. Due to patient's baseline status it has been impossible to determine if gallbladder had been an etiology in her decreased interest in eating characterized by behavioral change. Due to the lack of clear correlation of her symptoms to gallstones without sonographic evidence of chronic cholecystitis for some time cholecystectomy was deferred. I had her undergo evaluation with gastroenterology who recommended against cholecystectomy. However patient subsequently has had progressively decreased oral intake and lack of interest in eating. Her primary care provider had felt that consideration of cholecystectomy was reasonable. I had last seen her in the office on 06/23/24 and after prolonged discussion plan was made to proceed with outpatient cholecystectomy which was scheduled for 07/16/2024. However, she had presented to the emergency department on 06/29/2024 with food intolerance and decreased oral intake. Family had noticed some blood on her pillow and it was unclear as to the source. Workup at that time also revealed positivity for COVID. She was stable and able to be managed as an outpatient. Recommendations by the ER physician were for possible outpatient EGD prior to cholecystectomy. Arrangements were made for outpatient EGD for today on 07/10/2024. Family had requested possible colonoscopy as well as she has never had colonoscopy for screening purposes. Bowel prep was initiated on 07/09/2024. Patient had developed cramping abdominal pain and nausea with increased agitation characterized by increased gritting of her teeth and more frequent yelling. She was brought to the emergency department. Evaluation in the emergency department revealed the patient to be tachycardic, tachypneic, and borderline hypoxic. She reported had signs of increased work of breathing. She was found to have a leukocytosis of 14,000 with marked neutrophilia. She had CT scan of the chest and CT scan of the abdomen and pelvis. CT scan of the abdomen revealed findings of possible enterocolitis. However, the patient had undergone bowel preparation in anticipation of colonoscopy. CT scan of the chest revealed findings of possible bilateral pneumonia. She was admitted for inpatient at that time for pneumonia. It was felt that the best plan of action would be that once recovered from respiratory illness to proceed with upper endoscopy initially. [facility] Disclaimer: The information contained in this section may have been updated after the patient was seen, as this information can be updated by other users. Medical History Aspiration of food Chronic static encephalopathy Autism Surgical History History of dental surgery Family History Father Diabetes Heart attack Kidney disease Stroke Mother Diabetes Grandmother Diabetes Grandfather Diabetes Social History Smoking Status: Never smoker alcohol intake: never substance use type: denies use current occupational status: disabled Travel in the last 8 weeks: None household members: other details: sister housing: house Have you lived/traveled outside [place] in past 30 days?: No Contact w/someone who lives/traveled outside [place] past 30 days?: No Exposure to someone with infectious disease in past 14 days?: No Do you have a fever (greater than 100.4 F or 38 C)?: No Have you tested positive for COVID-19: No Exposed to someone with COVID-19 in past 14 days?: No Do you have a sore throat?: No Do you have a cough?: No Do you have any weakness?: No Do you have any diarrhea?: No Are you experiencing any unusual bleeding?: No Do you have any muscle aches/pain?: No Do you have any abdominal pain?: No Are you experiencing loss of taste or smell?: No Other Medical History Have you received the Flu Vaccine for this season: No Have you received the Pneumonia Vaccine: No Meds Home Medications and Allergies Home Medications ?Medication ?Instructions ?Recorded ?Confirmed ?Type loratadine 10 mg tablet 10 mg PO DAILY 04/04/22 07/24/24 History polyethylene glycol 3350 17 17 g PO DAILY #510 grams 02/25/24 07/24/24 Rx gram/dose oral powder (Miralax) sertraline 100 mg tablet 200 mg (2 x 100 mg) PO DAILY #180 05/05/24 07/24/24 Rx tabs clonazepam 2 mg tablet 4 mg (2 x 2 mg) PO BID #120 tabs 05/18/24 07/24/24 Rx fluticasone propionate 50 1 spray intranasal DAILY 30 days 06/10/24 07/24/24 Rx mcg/actuation nasal #16 grams spray,suspension pantoprazole 40 mg tablet,delayed 40 mg PO DAILY #30 tabs 06/15/24 07/24/24 Rx release valacyclovir 1 gram tablet 1,000 mg PO DAILY #30 tabs 06/15/24 07/24/24 Rx hydroxyzine HCl 50 mg tablet 50 mg PO BID 90 days #180 tabs 07/06/24 07/24/24 Rx nystatin 100,000 unit/gram topical 1 applic topical TID #30 grams 07/14/24 07/24/24 Rx ointment potassium chloride 20 mEq 20 meq PO BID #10 tabs 07/15/24 07/24/24 Rx tablet,extended release New Prescriptions to Start Prescriptions: Allergies Allergy/AdvReac Type Severity Reaction Status Date / Time aspirin AdvReac Adan's Verified 07/21/24 16:20 syndrome Exam Data for Last 24 hours I & O for Last 24 hours: Intake & Output 07/21/24 07/22/24 07/23/24 07/24/24 11:59 11:59 11:59 11:59 Weight 135 lb *Routine HEENT Exam Head: Present normocephalic Eye: Absent conjunctival icterus ENT: Present mucous membranes moist *Routine Neck Exam Neck: Present supple *Routine Respiratory Exam Respiratory: Present normal respiratory effort *Routine Cardiovascular Exam Cardiovascular: Absent JVD *Routine Abdominal Exam Abdominal: Absent tenderness *Routine Rectal Exam Rectal:: deferred *Routine Genitalia Exam Genitalia:: deferred Assessment and Plan *Assessment and plan (1) Food intolerance: Status: Acute Category: Medical Code(s): K90.49 - Malabsorption due to intolerance, not elsewhere classified Plan Plan to proceed with upper endoscopy to evaluate possible upper GI etiology for her food intolerance.
--- NOTE | 2024-07-24 06:52 | EXP.ANES.CKL ---
[facility] Disclaimer: The information contained in this section may have been updated after the patient was seen, as this information can be updated by other users. Medical History Aspiration of food Chronic static encephalopathy Autism Surgical History History of dental surgery Family History Father Diabetes Heart attack Kidney disease Stroke Mother Diabetes Grandmother Diabetes Grandfather Diabetes Social History Smoking Status: Never smoker alcohol intake: never substance use type: denies use current occupational status: disabled Travel in the last 8 weeks: None household members: other details: sister housing: house Have you lived/traveled outside US in past 30 days?: No Contact w/someone who lives/traveled outside [place] past 30 days?: No Exposure to someone with infectious disease in past 14 days?: No Do you have a fever (greater than 100.4 F or 38 C)?: No Have you tested positive for COVID-19: No Exposed to someone with COVID-19 in past 14 days?: No Do you have a sore throat?: No Do you have a cough?: No Do you have any weakness?: No Do you have any diarrhea?: No Are you experiencing any unusual bleeding?: No Do you have any muscle aches/pain?: No Do you have any abdominal pain?: No Are you experiencing loss of taste or smell?: No [facility] Anesthesia Checklist Patient Identification Patient Identification: Arm Band and Family Structural Data Admitted From: Home Planned Operative Procedure/s: EGD Consent for Planned Operative Procedure(s) Verified: Yes Verified Documents: Surgical Consent NPO Status Verified Time NPO: 00:00 Additional verifications Anesthesia Reactions: No Airway Assessment Mallampati Score:: Class II C-Spine Mobility Assessed: Yes TMJ Mobility Assessed: Yes Dentition: Good Dentition Neurological Assessment Level of Consciousness: Awake Anesthesia Plan Anesthesia Risk discussed: Yes Anesthesia Plan: Verified ASA Class: III Anesthesia Type: MAC
[2024-07-24 07:21] VITALS: O2SAT 99
--- NOTE | 2024-07-24 07:34 | P.PCN_ITS ---
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 She is nonverbal and often drooling, grunting, and spitting. She does have a very strong family support system. I have seen the patient in the outpatient setting for greater than a year as she has a diagnosis of gallstones. She has had a lack of interest in eating. Radiographic evaluation did reveal uncomplicated gallstones. Due to patient's baseline status it has been impossible to determine if gallbladder had been an etiology in her decreased interest in eating characterized by behavioral change. Due to the lack of clear correlation of her symptoms to gallstones without sonographic evidence of chronic cholecystitis for some time cholecystectomy was deferred. I had her undergo evaluation with gastroenterology who recommended against cholecystectomy. However patient subsequently has had progressively decreased oral intake and lack of interest in eating. Her primary care provider had felt that consideration of cholecystectomy was reasonable. I had last seen her in the office on 06/23/24 and after prolonged discussion plan was made to proceed with outpatient cholecystectomy which was scheduled for 07/16/2024. However, she had presented to the emergency department on 06/29/2024 with food intolerance and decreased oral intake. Family had noticed some blood on her pillow and it was unclear as to the source. Workup at that time also revealed positivity for COVID. She was stable and able to be managed as an outpatient. Recommendations by the ER physician were for possible outpatient EGD prior to cholecystectomy. Arrangements were made for outpatient EGD for today on 07/10/2024. Family had requested possible colonoscopy as well as she has never had colonoscopy for screening purposes. Bowel prep was initiated on 07/09/2024. Patient had deve loped cramping abdominal pain and nausea with increased agitation characterized by increased gritting of her teeth and more frequent yelling. She was brought to the emergency department. Evaluation in the emergency department revealed the patient to be tachycardic, tachypneic, and borderline hypoxic. She reported had signs of increased work of breathing. She was found to have a leukocytosis of 14,000 with marked neutrophilia. She had CT scan of the chest and CT scan of the abdomen and pelvis. CT scan of the abdomen revealed findings of possible enterocolitis. However, the patient had undergone bowel preparation in anticipation of colonoscopy. CT scan of the chest revealed findings of possible bilateral pneumonia. She was admitted for inpatient at that time for pneumonia. It was felt that the best plan of action would be that once recovered from respiratory illness to proceed with upper endoscopy initially. Performing Provider:: Sami Goldman MD Referring Provider:: Walt Howell MD Sedation:: MAC sedation Procedure:: Patient history was obtained and appropriate physical examination was performed. Patient's medications and allergies were reviewed. Informed consent was obtained after explaining the benefits, alternatives, and risks of the procedure including, but not limited to, bleeding, perforation, missed lesions, and adverse reaction to anesthesia medications. Patient was transported to endoscopy procedure room. Patient was connected to monitoring devices. Throughout the procedure the patient's blood pressure, pulse, and oxygen saturations were monitored continuously. Patient identification and planned procedure were verified by the staff. Patient was positioned in lateral decubitus position. Oral cavity was briefly inspected. Olympus endoscope was inserted via the oropharynx. Esophagus was cannulated. There is minor cricopharyngeal spasm. Esophagus overall lining appeared relatively unremarkable. There was some minor tortuosity consistent with minor esophageal dysmotility. Gastroesophageal junction was encountered at 35 cm from the incisors. Stomach was cannulated and insufflated. Retroflexion revealed small to moderate sliding hiatal hernia measuring about 4 cm. There was some diffuse gastropathy. Gastric biopsy was obtained. Pylorus was traversed. Duodenum appeared normal. Duodenal biopsy was obtained. Endoscope was withdrawn into the distal esophagus and a couple biopsies were obtained at the gastroesophageal junction and in the distal esophagus. . Findings:: Cricopharyngeal spasm Findings consistent with possible esophageal dysmotility 4 cm sliding hiatal hernia Diffuse mild nonerosive gastropathy Recommendations:: Follow-up on histopathology. If symptoms persist may consider cholecystectomy but unclear if this is a potential etiology of her symptoms. Complications:: None immediately apparent Estimated blood obtained (mL): 2 Colonoscopy Component Colonoscopy Component Was a colonoscopy performed during today's procedure?: No
[2024-07-24 07:42] VITALS: BP 117/72; PULSE 79; RESP 20; TEMP 36.2; O2SAT 95
[2024-07-24 07:52] VITALS: BP 120/71; PULSE 77; RESP 20; TEMP 36.2; O2SAT 95
[2024-07-24 08:02] VITALS: BP 118/70; PULSE 71; RESP 20; TEMP 36.2; O2SAT 96
[2024-07-24 08:12] VITALS: BP 118/70; PULSE 71; RESP 20; TEMP 36.2; O2SAT 96
== END 2024-07-24 08:32 | disposition home or self-care (01) ==
PROVIDERS: PCP Family Medicine; Visit Provider Surgery
PROC: 0DJ08ZZ Inspection of Upper Intestinal Tract, Via Natural or Artificial Opening Endoscopic (ICD-10-PCS; CPT 43239; principal; 2024-07-24 07:30)
DX: J39.2 Other diseases of pharynx (principal); K22.4 Dyskinesia of esophagus; K44.9 Diaphragmatic hernia without obstruction or gangrene; K31.9 Disease of stomach and duodenum, unspecified; K90.49 Malabsorption due to intolerance, not elsewhere classified; R63.0 Anorexia
CPT/HCPCS: 43239; J2250

== ENCOUNTER 2024-08-17 06:08 | Day surgery (SDC) | payer MEDICARE, MEDICAID, SELFPAY ==
--- NOTE | 2024-08-14 11:07 | SUR.PREOP ---
Dr Goldman and RASTA Toro both ok with pt not having a PAT appointment and are both agreeable to NOT repeating labs even though they are greater than 30 days old
[2024-08-14 11:09] VITALS: BMI 27.3
[2024-08-17] VITALS (10 sets, daily range): BP systolic 109–158; BP diastolic 65–88; PULSE 75–93; RESP 16–20; TEMP 36.4–36.6; O2SAT 91–95
--- NOTE | 2024-08-17 06:57 | P.PNANES_ITS ---
[facility] Disclaimer: The information contained in this section may have been updated after the patient was seen, as this information can be updated by other users. Medical History Aspiration of food Chronic static encephalopathy Autism Surgical History H/O esophagogastroduodenoscopy History of dental surgery Family History Father Diabetes Heart attack Kidney disease Stroke Mother Diabetes Grandmother Diabetes Grandfather Diabetes Social History Smoking Status: Never smoker alcohol intake: never substance use type: denies use current occupational status: disabled Travel in the last 8 weeks: None household members: other details: sister housing: house Have you lived/traveled outside US in past 30 days?: No Contact w/someone who lives/traveled outside US past 30 days?: No Exposure to someone with infectious disease in past 14 days?: No Do you have a fever (greater than 100.4 F or 38 C)?: No Have you tested positive for COVID-19: No Exposed to someone with COVID-19 in past 14 days?: No Do you have a sore throat?: No Do you have a cough?: No Do you have any weakness?: No Do you have any diarrhea?: No Are you experiencing any unusual bleeding?: No Do you have any muscle aches/pain?: No Do you have any abdominal pain?: No Are you experiencing loss of taste or smell?: No [facility] Anesthesia Checklist Patient Identification Patient Identification: Arm Band and Family Structural Data Admitted From: Home Planned Operative Procedure/s: Laparoscopic Cholecystectomy Consent for Planned Operative Procedure(s) Verified: Yes Verified Documents: Surgical Consent and History and Physical NPO Status Verified Time NPO: 00:00 Additional verifications Anesthesia Reactions: No Neurological Assessment Level of Consciousness: Awake, Alert and Appropriate Anesthesia Plan Anesthesia Risk discussed: Yes Anesthesia Plan: Verified ASA Class: III Anesthesia Type: General
[2024-08-17 07:07] LABS: Basophils # 0.1 K/mm3 (0-0.2); Basophils % 0.5 % (0.1-2.0); Eosinophils # 0.3 K/mm3 (0.0-0.4); Eosinophils % 2.7 % (0.1-12.0); Hematocrit 35.2 % (37.0-47.0); Hemoglobin 11.5 g/dL (12.2-16.2); Lymphocytes # 2.5 K/mm3 (0.7-4.5); Mean Corpuscular HGB Conc 32.7 g/dL (31.8-35.4); Mean Corpuscular Volume 88.9 fl (81-99); Mean Platelet Volume 10.1 fl (7.4-10.4); Monocytes # 0.8 K/mm3 (0.1-1.0); Monocytes % 7.8 % (1.7-9.3); Neutrophils # 6.1 K/mm3 (1.8-7.8); Neutrophils % 62.8 % (37.0-80.0); Platelet Count 208 K/mm3 (142-424); Red Blood Count 3.96 M/mm3 (4.20-5.40); Red Cell Distribution Width 17.2 % (11.5-17.5); White Blood Count 9.7 K/mm3 (4.8-10.8)
--- NOTE | 2024-08-17 07:07 | ECG_ITS ---
APPROVED REPORT Exam: Resting ECG HR:75 bpm ECG Measurements Heart Rate 75 AXES RI 137 P 71 QRSd 96 QRS 58 QT 383 T 66 QTc 411 Conclusion SINUS RHYTHM LOW QRS VOLTAGE IN PRECORDIAL LEADS [QRS DEFLECTION < 1.0 mV IN CHEST LEADS] BORDERLINE ECG UNCONFIRMED REPORT Electronically signed by : Gianni Fernandez MD 08/18/2024 08:07:21
[2024-08-17 07:17] LABS: Chloride 108 mmol/L (98-107)
[2024-08-17 07:18] LABS: Potassium 3.9 mmoL/L (3.5-5.1); Sodium 144 mmol/L (136-145)
[2024-08-17 07:20] LABS: Blood Urea Nitrogen 12 mg/dl (7-17); Creatinine Clearance Estimated 90 mL/min (50-200); Estimated Glomerular Filt Rate 87 ml/min (>60); GFR (African American) 105 ML/MIN (>60)
[2024-08-17 07:21] LABS: Anion Gap 9.9 mEq/L (5-15); Calcium 8.9 mg/dl (8.4-10.2); Carbon Dioxide 30 mmol/L (22.0-30.0); Glucose 88 mg/dl (74-100)
[2024-08-17] MEDS: CEFAZOLIN SODIUM 1 GM in 0.9 % SODIUM CHLORIDE 50 ML IV (07:50)
[2024-08-17] MEDS: SODIUM CHLORIDE IRRIG SOLUTION 3,000 ML 25 ML IR (08:00)
[2024-08-17] MEDS: ROPIVACAINE 0.5% 30ML VIAL 150 MG (08:00)
[2024-08-17] MEDS: LIDOCAINE 1% 20ML MDV 20 ML (08:00)
--- NOTE | 2024-08-17 09:02 | P.OP_ITS ---
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 She had markedly distended gallbladder with a couple of moderate size gallstones with some omental adhesions. Operative note:: Consent was obtained. Patient was taken the operating room. She was positioned in supine position. General anesthesia was induced via endotracheal tube. Abdomen was prepped and draped in the standard surgical fashion. Subumbilical skin incision was made and while performing abdominal wall lift Veress needle was inserted. CO2 pneumoperitoneum was achieved to 15 mmHg. 11 mm optical trocar was inserted at the umbilicus. She was positioned in reverse Trendelenburg left side down. A couple 5 mm trocars were inserted in the right upper abdomen. 10 mm trocar was inserted in the epigastrium. Liver was elevated and gallbladder was retracted anteriorly. There were omental adhesions to the gallbladder which were taken down using blunt dissection. Gallbladder was significantly distended and elongated. Infundibulum of the gallbladder was retracted anterior laterally. Blunt dissection was carried out at the neck of the gallbladder bluntly incising the visceral peritoneum. Careful prolonged dissection was carried out isolating the cystic duct. Cystic duct was isolated, multiply clipped, and sharply divided. Additional dissection revealed cystic artery which was carefully coagulated with SENAIT ultrasonic robotic virgilio and divided. Gallbladder was dissected free from the liver in a retrograde fashion using SENAIT ultrasonic harmonic virgilio. Gallbladder was placed within an Endo Catch retrieval device and removed from the peritoneal cavity via the umbilical trocar site which required some extension of the fascial incision for delivery. There was some oozing from the muscle at the umbilical trocar site. Gallbladder fossa and perihepatic space was irrigated and aspirated till clear. Trocars were then removed. Fascia at the umbilicus was closed with simple interrupted 0 Vicryl sutures. Due to the oozing from the muscle at this trocar site and CO2 pneumoperitoneum was reestablished. Laparoscopic surveillance was carried out and there was good hemostasis. A 5 mm trocar was placed through previous incision and residual blood from the umbilical trocar site was suctioned free. There was good hemostasis. Trocars were then removed once again as CO2 pneumoperitoneum was evacuated. Local anesthetic was infiltrated. Skin incisions were closed with 4-0 Monocryl in a subcuticular fashion. Steri-Strips and dressings were applied. Condition: stable Disposition: PACU Complications:: None immediately apparent
--- NOTE | 2024-08-17 09:18 | P.PNANES_ITS ---
[facility] Anesthesia Record Part I Anesthesia Record I Intake, IV Amount: 800 Hydration: Adequate Estimated blood loss (mL): 50 Urine output (mL): 0 Blood Products used (#): none Blood Pressure: 141/78 SaO2: 95 Pulse Rate: 93 Airway Patency: Patent Respiratory Rate: 20 Temperature: 97.9 F Patient is:: Awake, Drowsy and Stable Stable to PACU at:: 09:23
--- NOTE | 2024-08-18 13:10 | P.PNANES_ITS ---
[facility] Anesthesia Record Part II Anesthesia Record Part II Discharge Time: 09:50 Destination: Surgical Day Care (OP Surgery) PACU nurse assessment reviewed?: Yes Patient Condition:: Good Anesthesia Complications:: None Swallowing reflex intact?: Yes Airway Patency: Patent Cyanosis?: No Blood Pressure: 115/71 SaO2: 91 Respiratory Rate: 16 Pulse Rate: 89 Temperature: 97.9 F Mental Status: Alert & Oriented Pain level:: 0 Nausea and/or vomitting:: None Intake, IV Amount: 0 Hydration: Adequate
[2024-08-18 13:11] VITALS: BP 115/71; PULSE 89; RESP 16; TEMP 36.6; O2SAT 91
== END 2024-08-17 10:25 | disposition home or self-care (01) ==
PROVIDERS: PCP Family Medicine; Visit Provider Surgery
PROC: 0FT44ZZ Resection of Gallbladder, Percutaneous Endoscopic Approach (ICD-10-PCS; CPT 47562; principal; 2024-08-17 07:30)
DX: K80.20 Calculus of gallbladder without cholecystitis without obstruction (principal)
CPT/HCPCS: 47562; 80048; 85025; 88304; 93005; 96374; J1100; J1200; J2250; J2405; J3010

== ENCOUNTER 2024-09-03 10:14 | Emergency (ER) | payer MEDICARE, SELFPAY ==
[2024-09-03 10:37] VITALS: BP 158/115; PULSE 82; RESP 16; TEMP 36.6; O2SAT 95; BMI 26.4
--- NOTE | 2024-09-03 11:31 | XR_ITS ---
FINAL REPORT TECHNIQUE: Chest PA & Lateral CLINICAL HISTORY: RLL wheezing and cough COMPARISON: 06/29/2024 FINDINGS: Two views of the chest were performed. The heart size is normal. The mediastinum is within normal limits. The lungs are underinflated. There is no acute cardiopulmonary process. There are no pleural effusions. There is no pneumothorax. The bony thorax appears intact. IMPRESSION: Underinflation without acute cardiopulmonary process. Reviewed, Interpreted and Dictated by Lopez [place] MD Transcribed by Marcelina Farr Authenticated and [facility]
[2024-09-03 11:42] LABS: Microscopic, Urine URINE MICROSCOPIC (MICROSCOPIC)
--- NOTE | 2024-09-03 11:44 | HMH.EDGENADL ---
Discharge Plan Disposition Patient Disposition: Home, Self-Care Prescriptions Prescriptions: New cefdinir 300 mg capsule 300 mg PO BID 7 Days Qty: 14 0RF No Action polyethylene glycol 3350 [Miralax] 17 gram/dose powder 17 g PO DAILY Qty: 510 11RF pantoprazole 40 mg tablet,delayed release (DR/EC) 40 mg PO DAILY Qty: 30 5RF nystatin 100,000 unit/gram ointment 1 applic topical TID Qty: 30 2RF trazodone 100 mg tablet 100 mg PO HS PRN (Reason: Insomnia) cetirizine [Zyrtec] 10 mg tablet 10 mg PO DAILY Qty: 30 5RF sertraline 100 mg tablet 200 mg PO DAILY Qty: 180 0RF fluticasone propionate 50 mcg/actuation spray,suspension 1 spray intranasal DAILY 30 Days Qty: 16 2RF Patient Comments: USE 2 PUFFS IN EACH NOSTRIL EVERY DAY hydroxyzine HCl 50 mg tablet 50 mg PO BID 90 Days Qty: 180 0RF clonazepam 2 mg tablet 4 mg PO BID Qty: 120 2RF hydrocodone-acetaminophen 5-325 mg Tablet 1 tab PO Q6H PRN (Reason: Pain) Qty: 11 0RF Referrals Follow up/Referrals: Walt Howell MD [Primary Care Provider] - See instructions Activity Restrictions/Add. Instructions Additional Instructions/Restrictions: Call your family doctor to establish care for this visit to the emergency department and schedule follow-up within 48 hours to ensure improvement. If you have any worsening of your condition or any other concerning signs or symptoms, return to the emergency department or your primary care doctor for further evaluation. Antibiotic twice daily for 7 days. Clinical Impressions Clinical Impression: Pyelonephritis Instructions Patient Instructions: DI for Urinary Tract Infection (UTI), DI for Urinary Tract Infection in Children Print Language Print Language: Slovak Discharge ED Provider: Breezy Wharton General Adult HPI General Chief complaint: Urogenital-Female Stated complaint: vaginal discharge-fall last week Time Seen by Provider: 09/03/24 10:35 Mode of Arrival: Ambulatory Source of Information: Relative Description of Symptoms (Recalled from ER Triage Doc. by RN): pt unable to verbalize complaints but her sister states that she has had an abnormal for her vaginal discharge with some urinary incontinence for the last couple days. sister also states that she is concerned for a fall on saturday and favoring her right side, blisters on her lips that seems to not get better with medication, and her gallbladder removal site from two weeks ago. History of Present Illness HPI narrative: Please note that above description of symptoms, in this electronic medical record under categorization of recalled from ER triage doctor by RN are reflective of an initial nursing assessment, however, is not reflective of my full history and physical exam that was personally taken and clarified. Consequentially, this preceding description of symptoms, which may include the patient's categorized chief complaint in the EMR, do not reflect my personal clinical impression, and the ultimate description of history of present illness and patient stated complaints should be deferred to this section of the note. Unless stated otherwise or congruent with this section of the note, additional signs, symptoms, or incongruence should be interpreted as inaccurate with my clinical impression. Related Data Home Medications ?Medication ?Instructions ?Recorded ?Confirmed trazodone 100 mg tablet 100 mg PO HS PRN Insomnia 07/28/24 08/17/24 Previous Rx's ?Medication ?Instructions ?Recorded polyethylene glycol 3350 17 17 g PO DAILY #510 grams 02/25/24 gram/dose oral powder (Miralax) sertraline 100 mg tablet 200 mg (2 x 100 mg) PO DAILY #180 05/05/24 tabs fluticasone propionate 50 1 spray intranasal DAILY 30 days 06/10/24 mcg/actuation nasal #16 grams spray,suspension pantoprazole 40 mg tablet,delayed 40 mg PO DAILY #30 tabs 06/15/24 release hydroxyzine HCl 50 mg tablet 50 mg PO BID 90 days #180 tabs 07/06/24 nystatin 100,000 unit/gram topical 1 applic topical TID #30 grams 07/14/24 ointment cetirizine 10 mg tablet (Zyrtec) 10 mg PO DAILY allergies #30 tabs 08/13/24 hydrocodone 5 mg-acetaminophen 325 1 tab PO Q6H PRN Pain #11 tabs 08/17/24 mg tablet clonazepam 2 mg tablet 4 mg (2 x 2 mg) PO BID #120 tabs 08/28/24 cefdinir 300 mg capsule 300 mg PO BID 7 days #14 caps 09/03/24 Allergies Allergy/AdvReac Type Severity Reaction Status Date / Time aspirin AdvReac Adan's Verified 08/17/24 06:49 syndrome PFSH [facility] Disclaimer: The information contained in this section may have been updated after the patient was seen, as this information can be updated by other users. Medical History (Updated 09/03/24 @ 12:08 by Breezy Wharton MD) Aspiration of food Chronic static encephalopathy Autism Surgical History H/O esophagogastroduodenoscopy History of dental surgery Family History Father Diabetes Heart attack Kidney disease Stroke Mother Diabetes Grandmother Diabetes Grandfather Diabetes Social History Smoking Status: Never smoker alcohol intake: never substance use type: denies use current occupational status: disabled Travel in the last 8 weeks: None household members: other details: sister housing: house Have you lived/traveled outside US in past 30 days?: No Contact w/someone who lives/traveled outside US past 30 days?: No Exposure to someone with infectious disease in past 14 days?: No Do you have a fever (greater than 100.4 F or 38 C)?: No Have you tested positive for COVID-19: No Exposed to someone with COVID-19 in past 14 days?: No Do you have a sore throat?: No Do you have a cough?: No Do you have any weakness?: No Do you have any diarrhea?: No Are you experiencing any unusual bleeding?: No Do you have any muscle aches/pain?: No Do you have any abdominal pain?: No Are you experiencing loss of taste or smell?: No Other Medical History Have you received the Flu Vaccine for this season: No Have you received the Pneumonia Vaccine: No ROS Obtained: Yes All systems reviewed & no additional complaints except as documented Physical Exam General General appearance: alert Head Head exam: atraumatic and normocephalic Eye Eye exam: Present normal appearance, PERRL and EOMI ENT ENT exam: Present mucous membranes moist Neck Neck exam: Present normal inspection, full ROM and trachea midline Respiratory Respiratory exam: Present wheezes (Right lower lung wheezes isolated); Absent respiratory distress, stridor, accessory muscle use or prolonged expiratory phase Cardiovascular Cardiovascular exam: Present regular rate, normal rhythm and other (Pulses equal symmetric in upper and lower extremities) Abdominal Exam Abdominal exam: Present soft; Absent distention, tenderness, guarding, rebound, rigidity or pulsatile mass Extremities Exam Extremities exam: Absent edema Neurological Exam Neurological exam: Present alert, CN II-XII intact and normal gait; Absent motor sensory deficit Skin Skin exam: Present warm and dry; Absent diaphoresis or erythema Medical Decision Making Medical Records Medical records reviewed: Yes I reviewed the patient's medical records. Screening: Per USPSTF and CDC recommendations, given the prevalence of disease in our region, it is our hospital?s policy to screen for HIV and viral Hepatitis for all patients aged 18 and over and those with ongoing risk factors. Damien Inquiry Pt receiving controlled substance: No Damien was queried for this patient: No Vital Signs: 09/03/24 10:37 Temperature 97.9 F Temperature Source Temporal Artery Scan Pulse Rate [Left] 82 Respiratory Rate 16 Blood Pressure [Right Arm] 158/115 H Blood Pressure Mean [Right Arm] 129 Blood Pressure Source [Right Arm] Automatic Cuff 02 Sat by Pulse Oximetry 95 Oxygen Delivery Method Room Air Lab Data Lab Results 09/03/24 11:38: Urine Color Yellow, Urine Appearance Turbid, Urine pH 6.0, Ur Specific [place] >= 1.030, Urine Protein 2+ A, Urine Glucose (UA) Negative, Urine Ketones Negative, Urine Blood 2+ A, Urine Nitrate Positive A, Urine Bilirubin Negative, Urine Urobilinogen 0.2, Ur Leukocyte Esterase 3+ A Orders (Tests/Meds): ORDERS Category Date Time Status CXR 2 view (NOT portable) [XR chest 2V] Stat Exams 09/03/24 11:31 Taken UA [Urinalysis and Microscopic] Stat Lab 09/03/24 11:38 Results Urine Culture Stat Micro 09/03/24 11:38 Received Medical Decision Narrative: This is a 58-year-old female history of hypertension, hyperlipidemia, 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 Family states that patient has been weaker than usual, intermittently leaning when she is walking. States that currently she seems to be at her neurologic baseline, but at home, seems to be leaning toward her right when she is walking intermittently. Only periodic throughout the day, nothing that is persistent. States that she has otherwise been mentating well. She has been coughing, nothing has been productive, but she is likely swallowing the phlegm she is coughing up. No fevers that they have noticed. Supervisor Machine Setter and family at bedside states that they were cleaning her and noticed that she had urethral discharge that was thick, cloudy, malodorous over the past couple of days, so brought her in for further evaluation. History obtained with family and cleater. On arrival, patient is reportedly at neurologic baseline, walking around the room, very clinically well. She is nontachycardic and afebrile. Lungs are clear with the exception of right lower lung gerardo where she does have isolated wheezing/rhonchi, could be acute pneumonia/infection or chronic changes given numerous aspiration pneumonias in the past. Abdomen is soft, nontender, nondistended. Does not appear to be tender on palpation. Differential includes bronchitis, pneumonia, urinary tract infection, metabolic abnormality, endocrinologic abnormality, hip or back pain, among others. Because patient at baseline not acting as if she is in any acute pain, no medications were administered. Chest x-ray obtained, urinalysis obtained. On independent interpretation, chest x-ray without any acute intrathoracic abnormality. Urinalysis with UTI. Patient was given first dose of cefdinir. 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 Because patient at baseline without signs or symptoms of clinical decompensation, deemed appropriate for discharge. Results were relayed to patient caregiver who voiced understanding and were agreeable to outpatient management and follow up. I discussed my clinical impression with patient caregiver and answered all questions. At this time, the evidence for any other entities in the differential is insufficient to warrant any further testing or ED observation. This was explained as well. Advisory was given that persistent or worsening symptoms require further evaluation. I confirmed the understanding of this discussion. Emery Wheel Worker disclaimer Much of this encounter note is an electronic pipe jeeper spoken language to printed text. Electronic pipe jeeper of the spoken language may permit errors. Although I have reviewed the note, some errors may still exist. Critical Care Critical Care Time Critical Care Time: No
[2024-09-03 11:47] LABS: Appearance,Urine TURBID (Clear); Bilirubin,Urine Negative (Negative); Blood, Urine 2+ (Negative); Color,Urine YELLOW (Yellow); Glucose,Urine (UA) Negative (Negative); Ketones,Urine Negative (Negative); Leukocyte Esterase,Urine 3+ (Negative); Nitrate,Urine POSITIVE (Negative); Protein,Urine 2+ (Negative); Specific Gravity, Urine >= 1.030 (1.005-1.030); Urobilinogen,Urine 0.2 EU/dl (0.2)
[2024-09-03 12:01] LABS: Bacteria,Urine 4+ /lpf; WBC,Urine TNTC #/hpf (0-3)
[2024-09-03 12:16] VITALS: BP 0/0; PULSE 0; RESP 0; TEMP -17.7; TEMP 0; O2SAT 0
--- NOTE | 2024-09-05 09:42 | PC.NURSE ---
reviewed urine cx results from 09/03/[address] Cortes. Pt is on appropriate ABX.
== END 2024-09-03 12:20 | disposition home or self-care (01) ==
PROVIDERS: Emergency Provider Emergency Medicine; PCP Family Medicine
DX: N10 Acute pyelonephritis (principal); N89.8 Other specified noninflammatory disorders of vagina; R32 Unspecified urinary incontinence; F79 Unspecified intellectual disabilities
CPT/HCPCS: 71046; 81001; 87086; 87088; 87186; 99283

== ENCOUNTER 2024-09-16 11:51 | Outpatient (CLI) | payer MEDICARE, SELFPAY ==
[2024-09-16 11:59] LABS: Microscopic, Urine URINE MICROSCOPIC (MICROSCOPIC)
[2024-09-16 12:26] LABS: Appearance,Urine CLOUDY (Clear); Bilirubin,Urine Negative (Negative); Blood, Urine 2+ (Negative); Color,Urine YELLOW (Yellow); Glucose,Urine (UA) Negative (Negative); Ketones,Urine Negative (Negative); Leukocyte Esterase,Urine 2+ (Negative); Nitrate,Urine Negative (Negative); Protein,Urine 2+ (Negative); Specific Gravity, Urine >= 1.030 (1.005-1.030); Urobilinogen,Urine 0.2 EU/dl (0.2)
[2024-09-16 12:33] LABS: Bacteria,Urine 4+ /lpf; Calcium Oxalate Crystals,Urine 1+ /lpf; Squamous Epithelial Cell,Urine Occasional #/hpf (0-5); WBC,Urine 20-50 #/hpf (0-3)
== END 2024-09-16 23:59 | disposition home or self-care (01) ==
LOC: LAB 11:52
PROVIDERS: PCP Family Medicine; Visit Provider Family Medicine
DX: N39.0 Urinary tract infection, site not specified (principal); B96.20 Unspecified Escherichia coli [E. coli] as the cause of diseases classified elsewhere
CPT/HCPCS: 81001; 87086; 87088; 87186

== ENCOUNTER 2024-11-29 11:18 | Emergency (ER) | payer MEDICARE, SELFPAY ==
[2024-11-29] VITALS (10 sets, daily range): BP systolic 90–147; BP diastolic 68–106; PULSE 66–82; RESP 15–23; TEMP 36.6–37.1; O2SAT 95–99; BMI 26.5
--- NOTE | 2024-11-29 11:27 | ECG_ITS ---
APPROVED REPORT Exam: Resting ECG HR:76 bpm ECG Measurements Heart Rate 76 AXES AK 138 P 49 QRSd 93 QRS 10 QT 376 T 64 QTc 407 Conclusion SINUS RHYTHM NORMAL ECG No STEMI Electronically signed by : BETH MICHELE, 12/01/2024 00:07:18
--- OUTSIDE RECORDS SUMMARY | 2024-11-29 11:27 | XMS_ITS | Clinical Summary ---
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 Active fluticasone (Flonase) 50 MCG/ACT nasal spray Administer 2 sprays into each nostril 1 (one) time each day. Shake gently. Before first use, prime pump. After use, clean tip and replace cap. Active hydrOXYzine pamoate (Vistaril) 50 MG capsule Take 1 capsule (50 mg) by mouth 2 (two) times a day before meals. Active ascorbic acid (vitamin C) 500 MG tablet Take 1 tablet (500 mg) by mouth 1 (one) time each day. Active sertraline (Zoloft) 100 MG tablet Take 2 tablets (200 mg) by mouth 1 (one) time each day. Active traZODone (Desyrel) 50 MG tablet Take 1.5 tablets (75 mg) by mouth every night. Active traZODone (Desyrel) 50 MG tablet Take 0.25 tablets (12.5 mg) by mouth 1 (one) time each day. Active loratadine (Claritin Reditabs) 10 MG disintegrating tablet Take 1 tablet (10 mg) by mouth 1 (one) time each day. Active Active Problems Problem Noted Date Diagnosed Date Dental caries, unspecified 08/08/2023 Encounter for dental examina tion and cleaning with abnormal findings 11/07/2022 Social History Tobacco Use Types Packs/Day Years Used Date Smoking Tobacco: Never Smokeless Tobacco: Never Tobacco Cessation:Counseling Given: Not Answered Alcohol Use Standard Drinks/Week Comments Never 0 (1 standard drink = 0.6 oz pur e alcohol) Comments No Sex and Gender Information Value Date Recorded Sex Assigned at Not on file Legal Sex Female 8:55 PM EDT Gender Identity Not on file Sexual Orientation Not on file Last Filed Vital Signs Vital Sign Reading Time Taken Comments Blood Pressure 132/89 10/01/2023 9:25 AM EDT Pulse 70 10/01/2023 9:35 AM EDT Temperature 36.2 C (97.2 F) 10/01/2023 9:30 AM EDT Respiratory Rate 18 10/01/2023 9:35 AM EDT Oxygen Saturation 97% 10/01/2023 9:35 AM EDT Inhaled Oxygen Concentration - - Weight 63.5 kg (140 lb) 09/18/2023 1:23 PM EDT Height 152.4 cm (5') 09/18/2023 1:23 PM EDT Body Mass Index 27.34 09/18/2023 1:23 PM EDT Plan of Treatment Health Maintenance Due Date Last Done Comments [facility]-Depression Screening 1965 [facility]-HIV Screening 1965 [facility]-Hepatitis C Screening 1965 [facility]-Medicare Annual Wellness (AWV) 1965 [facility]-/Child/Adol SDOH Screenings 1965 [facility]-Obesity Intervention 12/09/1973 [facility]- SDOH Screenings 12/09/1985 [facility]-Adult SDOH Screenings 12/09/1985 [facility]-Hepatitis B Vaccines (1 of 3 - 19+ 3-dose series) 12/09/1986 [facility]-Pap Smear 11/07/2006 11/08/2003 [facility]-Cervical Cancer Screening 11/07/2008 [facility]-HPV/Cotest 11/07/2008 11/08/2003 CT Colonography 12/09/2012 Colonoscopy 12/09/2012 FIT-DNA 12/09/2012 FIT 12/09/2012 FOBT 12/09/2012 Sigmoidoscopy 12/09/2012 [facility]-Colorectal Cancer Screening 12/09/2012 [facility]-Breast Cancer Screening 12/09/2017 [facility]-Zoster Vaccines (1 of 2) 12/09/2017 [facility]-Pneumococcal Vaccine: 50+ Years (3 of 3 - PCV20 or PCV21) 03/25/2020 03/25/2015, 01/02/2013, 01/02/2013 [id number] Vaccine (4 - season) 2024 06/15/2021, 10/04/2020, 09/02/2020 Dental Oral Exam 04/03/2024 10/01/2023 Dental Prophylaxis 04/03/2024 10/01/2023 Dental X-Ray: Bitewings 10/01/2024 10/01/2023 [facility]-Influenza Vaccine (#1) 01/18/202502/02, 03/08/2017, 02/18/2016, Additional history exists [facility]-DTaP,Tdap,and Td Vaccines (3 - Td or Tdap) 10/12/2025 10/13/2015, 01/15/2014 Dental X-Ray: Full Mouth 10/01/2026 10/01/2023 HPV Vaccines Aged Out No longer eligi ble based on patient's age to complete this topic [facility]-HIB Vaccines Aged Out No longer e ligible based on patient's age to complete this topic [facility]-Hepatitis A Vaccines Aged Out No longer eligible based on patient's age to complete this topic [facility]-IPV Vaccines Aged Out No longer e ligible based on patient's age to complete this topic [facility]-Rotavirus Vaccines Aged Out No lo nger eligible based on patient's age to complete this topic Procedures Procedure Name Priority Date/Time Associated Diagnosis Comments PROPHYLAXIS - ADULT Routine 10/01/2023 8 :53 AM EDT Encounter for dental examination INTRAORAL - COMPLETE SERIES OF RADIOGRAPHIC IMAGES Routine 10/01/2023 8:53 AM EDT Encounter for dental examination COMPREHENSIVE ORAL EVALUATION - NEW OR ESTABLISHED PATIENT Routine 10/01/2023 8:53 AM EDT Encounter for dental examination CYTO DATA CONVERSION Routine 11/08/2003 12:00 AM EDT from Last 3 Months or Most Recently Relevant to Health Maintenance Results * Cytology (11/08/2003 12:00 AM EDT) 11/08/2003 11/09/2003 9:5 9 AM EDT Narrative [facility] - 11/15/2003 3:52 PM EDT [facility] MR #: [id number] [facility] JAIR OZUNA [place] [id number] 1965 (Age: 37) FW Collect Date: 11/08/2003 00:00 Receipt Date: 11/09/2003 09:59 Page 1 DEPARTMENT OF PATHOLOGY AND LABORATORY MEDICINE CYTOPATHOLOGY REPORT Email: [email or web address] [phone] ATTENDING MD/Practitioner: Scar Hawkins MD Service: [facility] Location: [facility] OTHER MD(S): BELTRAN Maldonado Reported: 11/15/2003 15:52 Collected: 11/08/2003 00:00 INTERPRETATION THIN PREP (CERVICAL/VAGINAL): NEGATIVE FOR INTRAEPITHELIAL LESION OR MALIGNANCY. SATISFACTORY FOR EVALUATION; ENDOCERVICAL/ TRANSFORMATION ZONE COMPONENT PRESENT. Electronically Signed Out By LORA Moctezuma([facility]). LORA Moctezuma([facility]). Cervical cytology is a screening test primarily for squamous cancers and precursors and has associated false negative and positive results. New technologies such as liquid based sampling may decrease but will not eliminate all false negative results. Regular screening and follow-up of unexplained clinical signs and symptoms are recommended to minimize false negative results. Please see the ASCCP website (www.asccp.org) for followup recommendations. If HPV testing was requested, correlation with the results is suggested (please call Microbiology at [phone] for results). CLINICAL INFORMATION: Menstrual History: {Not Provided} Date of Last Menstrual Period: {Not Provided} Contraceptive History: Depo Other Clinical Conditions: If ASCUS and > 24 years of age, HPV/DNA testing requested. SPECIMEN DESCRIPTION: A: THIN PREP (CERVICAL/VAGINAL) THIN PREP PROCESS CELLULAR ENHANCEMENT ICD: V76.2 CERVIX, SPECIAL SCREENING FOR MALIGNANT NEOPLASM F: A; RT IMAGE 92475, RT IMAGE 24835 <CR>, THIN SCRN 66146 SNOMED CODES: A; [id number] In cases where a pathologist has signed out the report, the service has been rendered in part by a resident. The signing pathologist has performed and is responsible for the reported pathologic evaluation. us Bernard Hawkins MD LAB PATHOLOGY ORDERABLES Final Result [facility] from Last 3 Months or Most Recently Relevant to Health Maintenance [place] [facility] Care Teams Home Economist Consumer Service Relationship Specialty Start Date End Date Pcp, [address] [place] [address] PCP - General Family Medicine 10/04/22
--- OUTSIDE RECORDS SUMMARY | 2024-11-29 11:27 | XMS_ITS | Clinical Summary ---
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 LEUKOCYTOSIS UNSPECIFIED D72.829 (ICD-10-CM ) 09/22 Resolved 09/22 Amanda Nordan Elevated white blood cell count, unspecified DIARRHEA 41975399 (SNOMED CT) 09/22 Inactive 09/22 Amanda Nordan Diarrhea OBESITY 532950979 (SNOMED CT) 10/14 Removed 10/14 Snageeta Bismark Obesity CLOSTRIDIUM DIFFICILE COLITIS 723407873 (SNOMED CT) 10/14 Active 10/14 Sangeeta Bismark Clostridium difficile colitis PNEUMONIA 028941791 (SNOMED CT) 09/01 Active 09/01 Amanda Nordan Pneumonia LEUKOCYTOSIS UNSPECIFIED D72.829 (ICD-10-CM ) 09/22 Removed 09/22 Amanda Nordan Elevated white blood cell count, unspecified BILAT PNEUMONIA J18.9 (ICD-10-CM ) 09/01 Refinement 09/01 Eryn Mendez Pneumonia, unspecified organism CLOSTRIDIUM DIFFICILE A04.7 (ICD-10-CM ) 09/01 Inactive 09/01 Eryn Menedz Enterocolitis due to Clostridium difficile DIARRHEA 70940475 (SNOMED CT) 09/22 Removed 09/22 Eryn Mendez Diarrhea MENTAL RETARDATION 29901205 (SNOMED CT) 09/01 Removed 09/01 Amanda Rosales Mental retardation BILAT PNEUMONIA J18.9 (ICD-10-CM ) 09/01 Removed 09/01 Amanda Rosales Pneumonia, unspecified organism CLOSTRIDIUM DIFFICILE A04.7 (ICD-10-CM ) 09/01 Removed 09/01 Amanda Rosales 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 63882487 (SNOMED CT) 09/01 Removed 09/01 Amanda Rosales Adan's syndrome Medications Medication Instructions Start Date Stop Date Generic Name NDC Provider MACRODANTIN 100 MG CAPS Take one (1) tablet by mouth three times a day NITROFURANTOIN MACROCRYSTAL [id number] Jose Abbott MD DIFICID 200 MG TABS Take one (1) tablet by mouth twice a day FIDAXOMICIN 28039780321 Sangeeta Sofia VANCOCIN HCL 250 MG ORAL CAPSULE one pill twice a day for 2 weeks then one MWF for 6 weeks VANCOMYCIN HCL 76257081348 Sangeeta Sofia FLUCONAZOLE 200 MG TABS FLUCONAZOLE 05399658110 Sangeeta Sofia DIFICID 200 MG TABS Take one (1) tablet by mouth twice a day FIDAXOMICIN 02888453887 Jose Abbott MD DOXYCYCLINE HYCLATE 100 MG CAPS DOXYCYCLINE HYCLATE 21658268307 Jose Abbott MD LAITH-Q ORAL CAPSULE PROBIOTIC PRODUCT 43350854604 Jose Abbott MD ASTELIN 137 MCG/SPRAY NASAL SOLUTION AZELASTINE HCL 31468981552 Jose Abbott MD LORATADINE TABS LORATADINE TABS 53738939797 Jose Abbott MD VANCOCIN HCL 250 MG ORAL CAPSULE one pill twice a day for 2 weeks then one MWF for 6 weeks VANCOMYCIN HCL 78623775892 Jose Abbott MD DOXYCYCLINE HYCLATE 100 MG CAPS DOXYCYCLINE HYCLATE 91295753059 Anetra D Coley VITAMIN E 400 UNIT CAPS VITAMIN E 28684124893 Anetra D Coley TRAZODONE HCL TABS TRAZODONE HCL TABS 07320192718 Anetra D Coley SERTRALINE HCL TABLET SERTRALINE HCL TABS 52420515148 Anetra D Coley SEROQUEL 200 MG TABS QUETIAPINE FUMARATE 34093602366 Anetra D Coley SINGULAIR 10 MG TABS MONTELUKAST SODIUM 83268549833 Anetra D Coley ALLERGY RELIEF 10 MG TABS LORATADINE 49297090443 Anetra D Coley LAITH-Q ORAL CAPSULE PROBIOTIC PRODUCT 77430991716 Anetra D Coley FLONASE 50 MCG/ACT NASAL SUSPENSION FLUTICASONE PROPIONATE 69747923236 Anetra D Coley FLUCONAZOLE 200 MG TABS FLUCONAZOLE 66056138981 Anetra D Coley CLONAZEPAM 1 MG TABS CLONAZEPAM 80330545375 Anetra D Coley PULMICORT 0.5 MG/2ML SUSP BUDESONIDE 50559999512 Anetra D Coley ASTELIN 137 MCG/SPRAY NASAL SOLUTION AZELASTINE HCL 76308668021 Anetra D Coley LIPITOR 20 MG TABS ATORVASTATIN CALCIUM 14454232819 Anetra D Coley EQL VITAMIN C 500 MG TABS ASCORBIC ACID 65448007187 Anetra D Coley ALBUTEROL SULFATE NEBU ALBUTEROL SULFATE NEBU 16709870941 Anetra D Coley Medications Administered No information available. Allergies, Adverse Reactions, Alerts Allergy Name Reaction Description Start Date Severity Statu s Provider SALICYLATES Severe Active Sangeeta Bismark ASA Moderate Active Anetra D Coley BACTRIM Moderate Active Anetra D Coley ERYTHROMYCIN Moderate Active Anetra D Coley Results Date Name Value Unit Range Flag Description Lab Report: ESR (Sed Rate) ESR 59 mm/h 0-20 H Erythrocyte sedimentation rate by Westergren method Lab Report: Amylase [id number]-GE-[id number] 113 Units/L 20-104 H GE use only - for LinkLogic import when terms are not otherwise specified Office Visit: hosp f/u room 6 SMOK STATUS never smoker Tobacco smoking status Lab Report: CBC w Auto Diff IMM GRANU % 0.2 % 0.0-0.6 N Immature granulocytes/100 leukocytes in Blood BASOPHIL % 0.2 % 0.0-1.0 N Basophils/ 100 leukocytes in Blood by Manual count % EOS AUTO 2.5 % 0.0-3.0 N Eosinophil s/100 leukocytes in Blood by Automated count MONOCYTE BF 8.1 % 0.0-12.0 N monocyte s as percent of body fluid leukocytes LYMPHS % 31.0 % 24.0-44.0 N Lymphocyte s/100 leukocytes in Blood by Automated count PMN % 58.0 % 41.0-71.0 N Neutrophils /100 leukocytes in Blood by Automated count BASOABSOLMAN 0.02 K/MCL {Cells}/u L 0.00-0.20 N basophils, absolute, manual EOS ABSLT 0.25 10*3/uL 0.10-0.30 N Eosinophi ls [#/volume] in Blood MONOCYTABMAN 0.81 K/MCL {Cells}/u L 0.00-1.00 N monocytes, absolute, manual LYMPHSABSMAN 3.11 K/MCL {Cells}/u L 0.60-4.80 N lymphocytes, absolute, manual ABS NEUTROPH 5.81 10*3/uL 1.50-8.30 N Neutro phils [#/volume] in Blood PLATELETS 225 10*3/mm3 150-450 N Platelets [#/volume] in Blood by Automated count RDW_ 14.6 11.3-14.5 H RDW, no uni ts MCHC 33.1 G/DL 32.0-36.0 N MCHC [Mass/ volume] by Automated count MCH 30.5 pg 27.0-31.0 N MCH [Entiti c mass] by Automated count MCV 92.2 fL 80.0-99.0 N MCV [Entiti c volume] by Automated count HCT 40.2 % 34.5-44.0 N Hematocrit [Volume Fraction] of Blood by Automated count HGB 13.3 g/dL 11.5-15.5 N Hemoglobin [Mass/volume] in Blood RBC 4.36 M/MCL 10*6/mm3 3.89-5.14 N Erythro cytes [#/volume] in Blood by Automated count WBC 10.02 10*3/mm3 3.50-10.8 0 N Leukocytes [#/volume] in Blood by Automated count Lab Report: Comprehensive Me tabolic Panel ANIONGAP 4 mmol/L 3-11 N anion gap, s nena GFRC 104 mL/min/1. 73m2 Glomerular Filtration Rate Calculation ALBUMIN 4.5 g/dL 3.4-4.8 N Albumin [Mass/volume] in Serum or Plasma PROTEIN, TOT 7.7 g/dL 6.4-8.3 N Protein [Mass/volume] in Serum or Plasma BILI TOTAL 0.3 mg/dL 0.3-1.2 N Bilirubin. total [Mass/volume] in Serum or Plasma SGPT (ALT) 45 U/L 7-40 H Alanine aminotransferase [Enzymatic activity/volume] in Serum or Plasma SGOT (AST) 30 U/L 8-33 N Aspartate aminotransferase [Enzymatic activity/volume] in Serum or Plasma ALK PHOS 87 U/L 25-100 N Alkaline hernandez sphatase [Enzymatic activity/volume] in Blood CALCIUM 9.5 mg/dL 8.7-10.4 N Calcium [Moles/volume] in Serum or Plasma CO2 28 mmol/L 20-31 N Carbon dioxid e, total [Moles/volume] in Venous blood CHLORIDE 108 mmol/L 98-107 H Chloride [Moles/volume] in Serum or Plasma POTASSIUM 4.3 mmol/L 3.4-5.4 N Potassium [Moles/volume] in Serum or Plasma SODIUM 140 mmol/L 136-145 N Sodium [Moles/volume] in Serum or Plasma CREATININE 0.7 mg/dL 0.6-1.3 N Creatinine [Mass/volume] in Serum or Plasma BUN 10 mg/dL 6-20 N Urea nitrogen [Mass/volume] in Serum or Plasma GLUCOSE SER 121 mg/dL 70-100 H Glucose [Mass/volume] in Serum or Plasma Office Visit: 7 MEDS REVIEW Done Documenta tion of current medications (procedure) Plan of Care Type Date Detail Pending order CMP Pending order CBC with Differe ntial Pending order X-Ray, Chest, PA & Lateral Pending order X-Ray, KUB Pending order New Oral Antibio tic Pending order CBC with Differe ntial Pending order CMP Pending order Sedimentation Ra te (ESR) Pending order LIPASE Pending order AMYLASE Pending order X-Ray, Chest, PA & Lateral Procedures Code Procedure Name Date Entry Date CPT-49713 CMP CPT-34231 CBC with Differential 10/14 CPT-02087 X-Ray, Chest, PA & Lateral 2 CPT-11374 X-Ray, KUB CPT-adilia New Oral Antibiotic CPT-75449 CBC with Differential 16 CPT-22537 CMP CPT-90171 Sedimentation Rate (ESR) 201 07/22/15 CPT-22431 LIPASE CPT-47432 AMYLASE CPT-57652 X-Ray, Chest, PA & Lateral 2 Vital Signs Date Name Value Unit Description BMI (Body Mass Index) 36.11 kg/m2 Bod y Mass Index (Ratio) Body Temperature 98.1 [degF] temperat ure E&M BP Diastolic 92 mm[Hg] blood pressu re, diastolic BP Systolic 114 mm[Hg] blood pressur e, systolic Heart Rate 72 /min pulse rate Height 64 [in_us] height E&M Respiratory Rate 12 /min respirat ory rate E&M Weight Measured 209.6 [lb_av] weight E& M Weight Measured 209.6 [lb_av] weight E& M Immunizations No information available. Advance Directives No information available.
--- NOTE | 2024-11-29 11:53 | XR_ITS ---
PROCEDURE INFORMATION: Exam: XR Chest Exam date and time: 11/29/2024 12:28 PM Age: 58 years old Clinical indication: Injury or trauma; Fall; Other: Pain; Additional info: Frequent falls, lethargy TECHNIQUE: Imaging protocol: Radiologic exam of the chest. Views: 1 view. COMPARISON: CR XR CHEST 2V 09/03/2024 11:37 AM FINDINGS: Lungs: Unremarkable. No consolidation. Pleural spaces: Unremarkable. No pleural effusion. No pneumothorax. Heart/Mediastinum: Unremarkable. No cardiomegaly. Bones/joints: Unremarkable. IMPRESSION: No acute findings.
--- NOTE | 2024-11-29 11:53 | CT_ITS ---
PROCEDURE INFORMATION: Exam: CT Cervical Spine Without Contrast Exam date and time: 11/29/2024 12:46 PM Age: 58 years old Clinical indication: Injury or trauma; Fall; Other: Pain; Additional info: Frequent falls, lethargy TECHNIQUE: Imaging protocol: Computed tomography of the cervical spine without contrast. Radiation optimization: All CT scans at this facility use at least one of these dose optimization techniques: automated exposure control; mA and/or kV adjustment per patient size (includes targeted exams where dose is matched to clinical indication); or iterative reconstruction. COMPARISON: CT CERVICAL SPINE WO CON 11/29/2024 12:46 PM FINDINGS: Bones: No acute fracture of the cervical spine. No subluxation or dislocation of the cervical spine. Intervertebral disc space narrowing C3/C4 may represent degenerative disc disease.. Bridging Anterior osteophyte formation C4 through C7 Posterior osteophyte formation C4 through C6. Degenerative changes in the facets at multiple levels. Degenerative changes at C1/C2 Lungs: Lung apices are normal. Thyroid: The thyroid is unremarkable Soft tissues: Unremarkable. Other findings: Motion artifact degrades images IMPRESSION: 1. No acute fracture of the cervical spine. 2. No subluxation or dislocation of the cervical spine. 3. Intervertebral disc space narrowing C3/C4 may represent degenerative disc disease.. 4 bridging anterior osteophyte formation C4 through C7
--- NOTE | 2024-11-29 11:53 | CT_ITS ---
PROCEDURE INFORMATION: Exam: CT Head Without Contrast Exam date and time: 11/29/2024 12:44 PM Age: 58 years old Clinical indication: Injury or trauma; Fall; Other: Pain; Additional info: Frequent falls, lethargy TECHNIQUE: Imaging protocol: Computed tomography of the head without contrast. Radiation optimization: All CT scans at this facility use at least one of these dose optimization techniques: automated exposure control; mA and/or kV adjustment per patient size (includes targeted exams where dose is matched to clinical indication); or iterative reconstruction. COMPARISON: CT HEAD/BRAIN WO CON 04/26/2023 2:44 PM FINDINGS: Brain: Normal. No hemorrhage. Unremarkable white matter. No mass effect. Cerebral ventricles: No ventriculomegaly. Paranasal sinuses: Visualized sinuses are unremarkable. No fluid levels. Mastoid air cells: Visualized mastoid air cells are well aerated. Bones: Unremarkable. No acute fracture. Soft tissues: Unremarkable. IMPRESSION: No acute intracranial abnormality.
--- NOTE | 2024-11-29 11:53 | XR_ITS ---
PROCEDURE INFORMATION: Exam: XR Pelvis Exam date and time: 11/29/2024 12:28 PM Age: 58 years old Clinical indication: Injury or trauma; Fall; Other: Pain; Additional info: Frequent falls, lethargy TECHNIQUE: Imaging protocol: Radiologic exam of the pelvis. Views: 1 or 2 view. COMPARISON: CT ABDOMEN PELVIS W CON 07/09/2024 8:30 PM FINDINGS: Bones/joints: Moderate degenerative changes of both hips and sacroiliac joints. There is no evidence of acute fracture.There is no evidence of malalignment or dislocation. Soft tissues: Unremarkable. IMPRESSION: 1. 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 2. There is no evidence of acute fracture.There is no evidence of malalignment or dislocation.
--- NOTE | 2024-11-29 12:01 | ED_ITS ---
Discharge Plan Disposition Patient Disposition: Home, Self-Care Condition: Good Prescriptions Prescriptions: New cefdinir 300 mg capsule 300 mg PO BID 10 Days Qty: 20 0RF nystatin 100,000 unit/gram powder 1 applic topical TID Qty: 30 0RF No Action betamethasone dipropionate 0.05 % cream 1 applic topical BID Qty: 45 1RF polyethylene glycol 3350 [Miralax] 17 gram/dose powder 17 g PO DAILY Qty: 510 11RF pantoprazole 40 mg tablet,delayed release (DR/EC) 40 mg PO DAILY Qty: 30 5RF nystatin 100,000 unit/gram ointment 1 applic topical TID Qty: 30 2RF cetirizine [Zyrtec] 10 mg tablet 10 mg PO DAILY Qty: 30 5RF trazodone 100 mg tablet 100 mg PO HS Patient Comments: TAKE 1 TABLET BY MOUTH AT BEDTIME EVERY NIGHT NEEDED FOR INSOMNIA fluconazole 150 mg tablet 150 mg PO Q3D Qty: 7 0RF hydroxyzine HCl 50 mg tablet 50 mg PO BID 90 Days Qty: 180 0RF valacyclovir 500 mg tablet See Rx Instructions .ROUTE .COMPLEX Qty: 30 0RF Dose Instruction: TAKE 1 TABLET BY MOUTH DAILY Rx Instructions: TAKE 1 TABLET BY MOUTH DAILY (DME) Hospital Bed (DME) Misc See Rx Instructions .Route Qty: 1 0RF Rx Instructions: As directed Ensure High Protein Liquid 1 ea PO BID Qty: 2844 5RF sertraline 100 mg tablet 200 mg PO DAILY Qty: 180 0RF fluticasone propionate 50 mcg/actuation spray,suspension 1 spray intranasal DAILY 30 Days Qty: 16 2RF Patient Comments: USE 2 PUFFS IN EACH NOSTRIL EVERY DAY clonazepam 2 mg tablet 4 mg PO BID Qty: 120 2RF Referrals Follow up/Referrals: Walt Howell MD [Primary Care Provider, Internal Medicine] - See instructions Activity Restrictions/Add. Instructions Additional Instructions/Restrictions: You were evaluated in the emergency department today. Urinalysis is concerning for infection. Urine culture was sent and is pending. We are providing you with a prescription for antibiotic. You also have a significant fungal infection for which we are providing antifungal powder. Please continue taking the fluconazole prescribed by your primary care provider as well. Follow-up with your primary care provider over the next 72 hours. Make sure to practice good hygiene as discussed and keep vaginal region and skin folds very clean and dry. Return to the emergency department for new or worsening symptoms. Clinical Impressions Clinical Impression: UTI (urinary tract infection), Candidal skin infection, Candidal intertrigo Instructions Patient Instructions: DI for Urinary Tract Infection (UTI), DI for Intertrigo, DI for Yeast Infection-Skin Print Language Print Language: Bolivian Discharge ED Provider: Tran Olson General Adult HPI General Chief complaint: Fall Stated complaint: A/O Fall 11/28/24 14:00 Lathargic Time Seen by Provider: 11/29/24 11:47 Mode of Arrival: Wheelchair Source of Information: Relative Description of Symptoms (Recalled from ER Triage Doc. by RN): Patient presents to ED from home with sister who is patient's caregiver. Reports patient has developmental delays and in nonverbal. Reports patient often falls and had a new fall yesterday while getting in the truck, states she fell into the truck beside the seat. Sister denies she his her head but is unsure of injuries. Sister also reports patient has been lethargic and is leaning in the wheelchair, reports the leaning started in 2021 but continues to worsen. History of Present Illness HPI narrative: This patient is a 58-year-old female with a history of developmental delay with nonverbal status presenting to the emergency department for evaluation with concern for lethargy and being off balance. Family's not sure when this started but they state that it started sometime between her last PCP visit on 11/23/2024 and now. On medical record review however, it looks like that was their presenting complaint to the PCPs office on that day and at that time it was reported to have been going on for some time. They note that the patient falls very frequently as over as a result of the balance issues. No fevers, cough, congestion, vomiting, changes in appetite, urinary symptoms, or other concerns noted, but they do note that she has a history of recurrent UTIs in the past. Related Data Home Medications ?Medication ?Instructions ?Recorded ?Confirmed trazodone 100 mg tablet 100 mg PO HS 11/23/24 Previous Rx's ?Medication ?Instructions ?Recorded polyethylene glycol 3350 17 17 g PO DAILY #510 grams 1 gram/dose oral powder (Miralax) pantoprazole 40 mg tablet,delayed 40 mg PO DAILY #30 t abs 06/15/24 release nystatin 100,000 unit/gram topical 1 applic topical TI D #30 grams 07/14/24 ointment cetirizine 10 mg tablet (Zyrtec) 10 mg PO DAILY allerg ies #30 tabs 08/13/24 hydroxyzine HCl 50 mg tablet 50 mg PO BID 90 days #180 tabs 09/28/24 valacyclovir 500 mg tablet See Rx Instructions .Route 10/13/24 .COMPLEX #30 tabs Hospital Bed (DME) #1 ea 10/15/24 food supplemt, lactose-reduced 1 ea PO BID #2,844 mL 0 10/29/24 (Ensure High Protein oral liquid) sertraline 100 mg tablet 200 mg (2 x 100 mg) PO DAILY #180 11/02/24 tabs betamethasone dipropionate 0.05 % 1 applic topical BID #45 grams 11/03/24 topical cream fluconazole 150 mg tablet 150 mg PO Q3D yeast dermatit is #7 11/23/24 tabs clonazepam 2 mg tablet 4 mg (2 x 2 mg) PO BID #120 tabs 11/24/24 fluticasone propionate 50 1 spray intranasal DAILY 30 days 11/24/24 mcg/actuation nasal #16 grams spray,suspension cefdinir 300 mg capsule 300 mg PO BID 10 days #20 ca ps 11/29/24 nystatin 100,000 unit/gram topical 1 applic topical TI D #30 grams 11/29/24 powder Allergies Allergy/AdvReac Type Severity Reaction Status Date / Time aspirin AdvReac Adan's Verified 11/23/24 12:59 syndrome [facility] Disclaimer: The information contained in this section may have been updated after the patient was seen, as this information can be updated by other users. Medical History Aspiration of food Chronic static encephalopathy Autism Surgical History History of laparoscopic cholecystectomy H/O esophagogastroduodenoscopy History of dental surgery Family History Father Diabetes Heart attack Kidney disease Stroke Mother Diabetes Grandmother Diabetes Grandfather Diabetes Social History Smoking Status: Never smoker alcohol intake: never substance use type: denies use current occupational status: disabled Travel in the last 8 weeks?: None household members: other details: sister housing: house Have you lived/traveled outside US in past 30 days?: No Contact w/someone who lives/traveled outside US past 30 days?: No Exposure to someone with infectious disease in past 14 days?: No Do you have a fever (greater than 100.4 F or 38 C)?: No Have you tested positive for COVID-19?: No Exposed to someone with COVID-19 in past 14 days?: No Do you have a sore throat?: No Do you have a cough?: No Do you have any weakness?: No Do you have any diarrhea?: No Are you experiencing any unusual bleeding?: No Do you have any muscle aches/pain?: No Do you have any abdominal pain?: No Are you experiencing loss of taste or smell?: No Other Medical History Have you received the Flu Vaccine for this season: No Have you received the Pneumonia Vaccine: No ROS Obtained: Yes unobtainable due to mental condition Physical Exam General General appearance: alert Comment: At her baseline Head Head exam: atraumatic and normocephalic Eye Eye exam: Present normal appearance, PERRL and EOMI ENT ENT exam: Present normal exam and normal oropharynx Neck Neck exam: Present normal inspection and full ROM Chest Chest inspection: Present normal inspection Respiratory Respiratory exam: Present normal lung sounds bilaterally; Absent respiratory distress Cardiovascular Cardiovascular exam: Present regular rate and normal rhythm Abdominal Exam Abdominal exam: Present soft; Absent distention or tenderness Comment: intertrigo External exam: Present other (vulvovaginal skin breakdown and candidiasis) Extremities Exam Extremities exam: Present normal inspection Neurological Exam Neurological exam: Present alert and other (moving all extremities) Skin Skin exam: Present other Medical Decision Making Medical Records Screening: Per USPSTF and CDC recommendations, given the prevalence of disease in our region, it is our hospital?s policy to screen for HIV and viral Hepatitis for all patients aged 18 and over and those with ongoing risk factors. Damien Inquiry Pt receiving controlled substance: No Vital Signs: 11/29/24 11:28 11/29/24 11:30 11/29/24 11:45 Temperature 98 F Temperature Source Temporal Artery Scan Pulse Rate 82 73 Pulse Rate [Left] 70 Respiratory Rate 19 16 20 Blood Pressure 90/68 L Blood Pressure [Right Arm] 108/70 L Blood Pressure Mean 71 Blood Pressure Mean [Right Arm] 82 Blood Pressure Source Blood Pressure Source [Right Arm] Automatic Cuff Blood Pressure Position Blood Pressure Position [Right Arm] Supine 02 Sat by Pulse Oximetry 97 95 98 Oxygen Delivery Method Room Air Room Air Room Air 11/29/24 12:00 11/29/24 12:30 11/29/24 13:00 Temperature Temperature Source Pulse Rate 69 76 66 Pulse Rate [Left] Respiratory Rate 23 18 16 Blood Pressure 136/87 Blood Pressure [Right Arm] Blood Pressure Mean 116 Blood Pressure Mean [Right Arm] Blood Pressure Source Blood Pressure Source [Right Arm] Blood Pressure Position Blood Pressure Position [Right Arm] 02 Sat by Pulse Oximetry 96 95 99 Oxygen Delivery Method Room Air Room Air 11/29/24 13:30 11/29/24 14:00 11/29/24 14:30 Temperature Temperature Source Pulse Rate 69 68 Pulse Rate [Left] Respiratory Rate 15 15 15 Blood Pressure 147/95 H 111/88 128/106 H Blood Pressure [Right Arm] Blood Pressure Mean Blood Pressure Mean [Right Arm] Blood Pressure Source Blood Pressure Source [Right Arm] Blood Pressure Position Blood Pressure Position [Right Arm] 02 Sat by Pulse Oximetry 97 97 96 Oxygen Delivery Method 11/29/24 15:29 Temperature 98.7 F Temperature Source Oral Pulse Rate 78 Pulse Rate [Left] Respiratory Rate 19 Blood Pressure 142/74 H Blood Pressure [Right Arm] Blood Pressure Mean Blood Pressure Mean [Right Arm] Blood Pressure Source Automatic Cuff Blood Pressure Source [Right Arm] Blood Pressure Position Supine Blood Pressure Position [Right Arm] 02 Sat by Pulse Oximetry Oxygen Delivery Method Room Air Lab Data Lab Results 11/29/24 12:01: WBC 10.6, RBC 4.28, Hgb 12.3, Hct 37.5, MCV 87.6, MCH 28.7, MCHC 32.8, RDW 14.6, Plt Count 177, MPV 10.5 H, Neut % (Auto) 73.1, Lymph % (Auto) 18.2, [place] % (Auto) 7.3, Eos % (Auto) 1.0, Baso % (Auto) 0.3, Neut # (Auto) 7.7, Lymph # (Auto) 1.9, [place] # (Auto) 0.8, Eos # (Auto) 0.1, Baso # (Auto) 0.0, Sodium 140, Potassium 4.1, Chloride 104, Carbon Dioxide 28, Anion Gap 12.1, BUN 18 H, Creatinine 0.80, Estimated Creat Clear 76, Estimated GFR 74, Est GFR ( Amer) 90, Glucose 95, Calcium 9.1, Phosphorus 3.2, Magnesium 2.0, Total Bilirubin 0.5, AST 30, ALT 12, Alkaline Phosphatase 77, Total Protein 7.7, Albumin 4.4, Globulin 3.3 H, Albumin/Globulin Ratio 1.3, TSH 1.48, Thyroxine (T4) 5.8, HCV Ab ALIYA w/Rflx PCR Qn Negative, HIV Ag/Ab Combo Qual Negative 11/29/24 12:05: SARS-CoV-2 (PCR) Not detected, Influenza A Untype (PCR) Not detected, Influenza Type B (PCR) Not detected 11/29/24 12:19: Urine Color Yellow, Urine Appearance Cloudy, Urine pH 6.5, Ur Specific [place] 1.015, Urine Protein 2+ A, Urine Glucose (UA) Negative, Urine Ketones Negative, Urine Blood 2+ A, Urine Nitrate Positive A, Urine Bilirubin Negative, Urine Urobilinogen 0.2, Ur Leukocyte Esterase 3+ A, Urine RBC 5-10, Urine WBC 50-100, Ur Squamous Epith Cells 3-5, Urine Bacteria 2+ 11/29/24 12:01 11/29/24 12:01 Orders (Tests/Meds): ED MEDICATIONS Discontinued Medications Generic Name Dose Route Start Last Admin Trade Name Isha PRN Reason Stop Dose Admin Lactated Ringer's 1,000 mls @ 999 mls/hr 11/29/24 11:55 11/29/24 12:06 Lactated Ringer's 1000 Ml Bag IV 11/29/24 12:55 999 mls/hr .Q1H1M ONE Administration Ceftriaxone Sodium 2 gm/ 100 mls @ 200 mls/hr 11/29/24 12:50 11/29/24 13:04 Sodium Chloride IV 11/29/24 13:19 200 mls/hr ONCE ONE Administration Nystatin 1 gm 11/29/24 12:27 11/29/24 13:04 Nystatin Topical Powder 30gm TP 11/29/24 12:28 1 applic ONCE ONE Administration ORDERS Category Date Time Status CT cervical spine wo con Stat Cat Scan 11/29/24 11:[address] head/brain wo con Stat Cat Scan 11/29/24 11:53 Completed CXR --portable [XR chest portable] Stat Exams 11/29/24 11:53 Completed Pelvis XR 1-2 views [XR pelvis 1-2V] Stat Exams 11/29/24 11:53 Completed CBC w/Auto Diff [Complete Blood Count Auto Diff] Stat Lab 11/29/24 12:01 Completed CMP [Comprehensive Metabolic Panel] Stat Lab 11/29/24 12:01 Completed HIV Combo Stat Lab 11/29/24 12:01 Completed Hepatitis C Ab Qual. W/ RFX Stat Lab 11/29/24 12:01 Completed MAG [Magnesium] Stat Lab 11/29/24 12:01 Completed PHOS [Phosphorous] Stat Lab 11/29/24 12:01 Completed Rapid PCR Covid and Flu A/B Stat Lab 11/29/24 12:05 Completed T4 (Thyroxine) Stat Lab 11/29/24 12:01 Completed TSH [Thyroid Stimulating Hormone] Stat Lab 11/29/24 12:01 Completed UA [Urinalysis and Microscopic] Stat Lab 11/29/24 12:19 Completed Urine Culture Stat Micro 11/29/24 12:19 Received ECG Data Tracing #1: I reviewed this ECG and interpreted as documented below: Normal sinus rhythm with a ventricular rate of [address] changes concerning for STEMI. Normal intervals ECG initial impression date: 11/29/24 ECG initial impression time: 11:28 Medical Decision Narrative: In summary, this patient is a 58-year-old female presenting to the Emergency Department for evaluation of lethargy, increasing balance issues, frequent falls. They also note that she has had multiple recurrent UTIs. Differential diagnoses considered include but are not limited to cystitis, pyelonephritis, traumatic injury from fall, dehydration, LORA among other. Ruling out the most morbid conditions drove assessment. It should be noted patient's history includes nonverbal status secondary to mental disability which is not at goal therapy. This complicates all aspects of care by increasing patient's risk for morbidity. I reviewed patient's past medical records and noted PCP evaluation a week ago for similar symptoms. She was diagnosed with candidal infection at that time and prescribed fluconazole. On exam, the patient is lying in bed in no acute distress. She appears to be at her baseline from time that I seen her in the past, though she may be slightly less active than normal. Cardiopulmonary exam is reassuring, abdominal seems benign. She does have candidal skin infection with intertrigo as well as significant irritation in her vaginal region. Workup included CBC, CMP, magnesium, phosphorus, TSH, T4, urinalysis, EKG, chest x-ray, pelvic x-ray, CT head and C-spine without contrast. She was given a bolus of IV fluids as well as topical nystatin powder for her intertrigo and vaginal irritation. I also counseled family on hygiene. I independently interpreted x-ray and CT prior to the radiologist read and noted fracture or intracranial hemorrhage, no large area concerning for stroke. Please see their read for final interpretation. Labs were obtained that demonstrated reassuring CBC with no significant leukocytosis or anemia, reassuring chemistry with normal electrolytes and kidney function. Urinalysis is concerning for UTI with positive nitrates and leukocyte esterase and 2+ bacteria. She also has significant intertrigo and candidal skin infection. Patient was given IV Rocephin as well as IV fluids here with good improvement in her mental state per family. I feel she is appropriate for discharge home with prescription for cefdinir and nystatin powder. She already has fluconazole that she is on at home. Instructions for close PCP follow-up were given as well as strict return precautions. Critical Care Critical Care Time Critical Care Time: No
[2024-11-29] MEDS: LACTATED RINGERS 1000ML 1,000 ML 999 ML IV (12:06)
[2024-11-29 12:10] LABS: Coronavirus 19, PCR Not Detected (NotDetected); Influenza A, PCR Not Detected (NotDetected); Influenza B, PCR Not Detected (NotDetected)
[2024-11-29 12:16] LABS: Hematocrit 37.5 % (37.0-47.0); Hemoglobin 12.3 g/dL (12.2-16.2); Immature Granulocytes % 0.1 %; Mean Corpuscular HGB Conc 32.8 g/dL (31.8-35.4); Mean Corpuscular Hemoglobin 28.7 pg (27.0-31.2); Mean Corpuscular Volume 87.6 fl (81-99); Nucleated Red Blood Cells % 0 %; Platelet Count 177 K/mm3 (142-424); Red Blood Count 4.28 M/mm3 (4.20-5.40); Red Cell Distribution Width-SD 47.3 fL; White Blood Count 10.6 K/mm3 (4.8-10.8)
[2024-11-29 12:19] LABS: Albumin Level 4.4 g/dl (3.5-5.0); Chloride 104 mmol/L (98-107); Potassium 4.1 mmoL/L (3.5-5.1); Sodium 140 mmol/L (136-145)
[2024-11-29 12:21] LABS: Blood Urea Nitrogen 18 mg/dl (7-17); Creatinine Clearance Estimated 76 mL/min (50-200); Creatinine,Serum 0.80 mg/dl (0.52-1.04); Estimated Glomerular Filt Rate 74 ml/min (>60); GFR (African American) 90 ML/MIN (>60)
[2024-11-29 12:22] LABS: Alanine Aminotransferase 12 U/L (12-78); Albumin/Globulin Ratio 1.3 (1.1-1.8); Alkaline Phosphatase 77 U/L (38-126); Anion Gap 12.1 mEq/L (5-15); Aspartate Amino Transferase 30 U/L (14-36); Bilirubin,Total 0.5 mg/dl (0.2-1.3); Calcium 9.1 mg/dl (8.4-10.2); Carbon Dioxide 28 mmol/L (22.0-30.0); Globulin 3.3 g/dL (1.3-3.2); Glucose 95 mg/dl (74-100); Phosphorous 3.2 mg/dl (2.5-4.5); Total Protein,Serum 7.7 g/dl (6.3-8.2)
[2024-11-29 12:22] LABS: Microscopic, Urine URINE MICROSCOPIC (MICROSCOPIC)
[2024-11-29 12:23] LABS: Magnesium 2.0 mg/dl (1.6-2.3)
[2024-11-29 12:39] LABS: T4 (Thyroxine) 5.8 ug/dl (5.53-11.0)
[2024-11-29 12:40] LABS: Bilirubin,Urine Negative (Negative); Color,Urine YELLOW (Yellow); Glucose,Urine (UA) Negative (Negative); Ketones,Urine Negative (Negative); Leukocyte Esterase,Urine 3+ (Negative); PH,Urine 6.5 (5.0-8.5); Protein,Urine 2+ (Negative); Specific Gravity, Urine 1.015 (1.005-1.030); Urobilinogen,Urine 0.2 EU/dl (0.2)
[2024-11-29 12:53] LABS: Thyroid Stimulating Hormone 1.48 uIU/mL (0.465-4.68)
[2024-11-29 13:02] LABS: Bacteria,Urine 2+ /lpf; WBC,Urine 50-100 #/hpf (0-3)
[2024-11-29] MEDS: NYSTATIN TOPICAL POWDER 30GM TP (13:04)
[2024-11-29 13:30] LABS: Hepatitis C Ab Qual. W/ RFX NEGATIVE (Negative)
--- NOTE | 2024-12-02 08:17 | PC.NURSE ---
Urine culture results reviewed by Dr. Schmidt. No new orders received at this time.
== END 2024-11-29 15:31 | disposition home or self-care (01) ==
PROVIDERS: Emergency Provider Emergency Medicine; PCP Family Medicine
DX: R53.83 Other fatigue (principal); N39.0 Urinary tract infection, site not specified; B37.2 Candidiasis of skin and nail; F79 Unspecified intellectual disabilities; W19.XXXA Unspecified fall, initial encounter
CPT/HCPCS: 70450; 71045; 72125; 72170; 80053; 81001; 83735; 84100; 84436; 84443; 85025; 86803; 87086; 87088; 87186; 87389; 87636; 93005; 96361; 96365; 99285; J0696; J7120

== ENCOUNTER 2024-12-26 06:16 | Observation (INO) | payer MEDICARE, SELFPAY ==
[2024-12-26] VITALS (12 sets, daily range): BP systolic 108–145; BP diastolic 58–88; PULSE 73–97; RESP 16–24; TEMP 36.7–38.8; O2SAT 92–98; BMI 26.4; BMI 26.8
--- OUTSIDE RECORDS SUMMARY | 2024-12-26 06:25 | XMS_ITS | Clinical Summary ---
Author Organization Healthcare Address [address] [place] [address] Care Team Providers Care Checker Dump Grounds Name Role Phone Pcp, No Primary Care [...] Screening 1965 [facility]-Medicare Annual Wellness (AWV) 1965 [facility]-Infant/Child/Adol SDOH Screenings 1965 [facility]-Obesity Intervention 12/09/1973 [facility]- [...] PCV20 or PCV21) 03/25/2020 03/25/2015, 01/02/2013, 01/02/2013 [id number] Vaccine (4 - season) 2024 06/15/2021, 10/04/2020, [...] Narrative SUNQUEST - 11/15/2003 3:52 PM EDT [facility] MR #: [id number] [facility] [place] [id number] (Age: 37) FW Collect Date: 11/08/2003 00:00 Receipt Date: 11/09/2003 09:59 Page 1 DEPARTMENT OF PATHOLOGY AND LABORATORY MEDICINE CYTOPATHOLOGY REPORT Email: [email or web address] [phone] ATTENDING MD/Practitioner: Scar Hawkins [place] [facility] [place] [facility] [place] OTHER MD(S): BELTRAN Maldonado Reported: 11/15/2003 15:52 Collected: 11/08/2003 00:00 INTERPRETATION THIN PREP (CERVICAL/VAGINAL): NEGATIVE FOR INTRAEPITHELIAL LESION OR MALIGNANCY. SATISFACTORY FOR EVALUATION; ENDOCERVICAL/ TRANSFORMATION ZONE COMPONENT PRESENT. Electronically Signed Out By LORA Moctezuma([facility]). LORA Moctezuma([facility]). Cervical cytology is a screening test primarily [...] results is suggested (please call Microbiology at [phone] for results). CLINICAL INFORMATION: Menstrual History: {Not Provided} Date of Last Menstrual Period: {Not Provided} Contraceptive History: Depo Other Clinical Conditions: If ASCUS and > 24 years of age, HPV/DNA testing requested. SPECIMEN DESCRIPTION: A: THIN PREP (CERVICAL/VAGINAL) THIN PREP PROCESS CELLULAR ENHANCEMENT ICD: V76.2 CERVIX, SPECIAL SCREENING FOR MALIGNANT NEOPLASM F: A; RT IMAGE [id number], RT IMAGE [id number] <CR>, THIN SCRN 08689 SNOMED CODES: A; [id number] In cases where a pathologist has signed out the report, the service has been rendered in part by a resident. The signing pathologist has performed and is responsible for the reported pathologic evaluation. us Bernard Hawkins MD LAB PATHOLOGY ORDERABLES Final Result SUNQUEST from Last 3 Months or Most Recently Relevant to Health Maintenance [place] [employer] Care Teams Checker Dump Grounds Relationship Specialty Start Date End Date Pcp, Annalee [address] [place] [address] PCP - General Family Medicine 10/04/22
--- OUTSIDE RECORDS SUMMARY | 2024-12-26 06:25 | XMS_ITS | Clinical Summary ---
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 LEUKOCYTOSIS UNSPECIFIED D72.829 (ICD-10-CM ) 09/22 Resolved 09/22 Amanda Nordan Elevated white blood cell count, unspecified DIARRHEA 20011830 (SNOMED CT) 09/22 Inactive 09/22 Amanda Nordan Diarrhea OBESITY 751831667 (SNOMED CT) 10/14 Removed 10/14 Sangeeta Bismark Obesity CLOSTRIDIUM DIFFICILE COLITIS 298696556 (SNOMED CT) 10/14 Active 10/14 Sangeeta Bismark Clostridium difficile colitis PNEUMONIA 234206625 (SNOMED CT) 09/01 Active 09/01 Amanda Nordan Pneumonia LEUKOCYTOSIS UNSPECIFIED D72.829 (ICD-10-CM ) 09/22 Removed 09/22 Amanda Nordan Elevated white blood cell count, unspecified BILAT PNEUMONIA J18.9 (ICD-10-CM ) 09/01 Refinement 09/01 Eryn Mendez Pneumonia, unspecified organism CLOSTRIDIUM DIFFICILE A04.7 (ICD-10-CM ) 09/01 Inactive 09/01 Eryn Mendez Enterocolitis due to Clostridium difficile DIARRHEA 58183040 (SNOMED CT) 09/22 Removed 09/22 Eryn Mendez Diarrhea MENTAL RETARDATION 66226015 (SNOMED CT) 09/01 Removed 09/01 Amanda Rosales Mental retardation BILAT PNEUMONIA J18.9 (ICD-10-CM ) 09/01 Removed 09/01 Amanda Rosales Pneumonia, unspecified organism CLOSTRIDIUM DIFFICILE A04.7 (ICD-10-CM ) 09/01 Removed 09/01 Amanda Rosales 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 64302471 (SNOMED CT) 09/01 Removed 09/01 Amanda Rosales Adan's syndrome Medications Medication Instructions Start Date Stop Date Generic Name NDC Provider MACRODANTIN 100 MG CAPS Take one (1) tablet by mouth three times a day NITROFURANTOIN MACROCRYSTAL [id number] Jose Abbott MD DIFICID 200 MG TABS Take one (1) tablet by mouth twice a day FIDAXOMICIN 83763625270 Sangeeta Sofia VANCOCIN HCL 250 MG ORAL CAPSULE one pill twice a day for 2 weeks then one MWF for 6 weeks VANCOMYCIN HCL 68511145995 Sangeeta Sofia FLUCONAZOLE 200 MG TABS FLUCONAZOLE 87424312870 Sangeeta Sofia DIFICID 200 MG TABS Take one (1) tablet by mouth twice a day FIDAXOMICIN 60973897949 Jose Abbott MD DOXYCYCLINE HYCLATE 100 MG CAPS DOXYCYCLINE HYCLATE 59924136204 Jose Abbott MD LAITH-Q ORAL CAPSULE PROBIOTIC PRODUCT 30129155907 Jose Abbott MD ASTELIN 137 MCG/SPRAY NASAL SOLUTION AZELASTINE HCL 45860114631 Jose Abbott MD LORATADINE TABS LORATADINE TABS 21517772566 Jose Abbott MD VANCOCIN HCL 250 MG ORAL CAPSULE one pill twice a day for 2 weeks then one MWF for 6 weeks VANCOMYCIN HCL 04591525920 Jose Abbott MD DOXYCYCLINE HYCLATE 100 MG CAPS DOXYCYCLINE HYCLATE 18293197306 Anetra D Coley VITAMIN E 400 UNIT CAPS VITAMIN E 79138178429 Anetra D Coley TRAZODONE HCL TABS TRAZODONE HCL TABS 29557072351 Anetra D Coley SERTRALINE HCL TABLET SERTRALINE HCL TABS 36250119212 Anetra D Coley SEROQUEL 200 MG TABS QUETIAPINE FUMARATE 52220783952 Anetra D Coley SINGULAIR 10 MG TABS MONTELUKAST SODIUM 86041478748 Anetra D Coley ALLERGY RELIEF 10 MG TABS LORATADINE 58108506400 Anetra D Coley LAITH-Q ORAL CAPSULE PROBIOTIC PRODUCT 98788298307 Anetra D Coley FLONASE 50 MCG/ACT NASAL SUSPENSION FLUTICASONE PROPIONATE 37383731760 Anetra D Coley FLUCONAZOLE 200 MG TABS FLUCONAZOLE 28225316283 Anetra D Coley CLONAZEPAM 1 MG TABS CLONAZEPAM 79296844661 Anetra D Coley PULMICORT 0.5 MG/2ML SUSP BUDESONIDE 17768389395 Anetra D Coley ASTELIN 137 MCG/SPRAY NASAL SOLUTION AZELASTINE HCL 69933984219 Anetra D Coley LIPITOR 20 MG TABS ATORVASTATIN CALCIUM 76759543410 Anetra D Coley EQL VITAMIN C 500 MG TABS ASCORBIC ACID 68230352030 Anetra D Coley ALBUTEROL SULFATE NEBU ALBUTEROL SULFATE NEBU 29612836413 Anetra D Coley Medications Administered No information [...] Procedures Code Procedure Name Date Entry Date CPT-60155 CMP CPT-37754 CBC with Differential 10/14 CPT-92251 X-Ray, Chest, PA & Lateral 2 CPT-76984 X-Ray, KUB CPT-adilia New Oral Antibiotic CPT-69433 CBC with Differential 16 CPT-46058 CMP CPT-22768 Sedimentation Rate (ESR) 201 07/22/15 CPT-35959 LIPASE CPT-31378 AMYLASE CPT-90919 X-Ray, Chest, PA & Lateral 2 Vital [...]
--- NOTE | 2024-12-26 06:38 | CT_ITS ---
PROCEDURE INFORMATION: Exam: CT Head Without Contrast Exam date and time: 12/26/2024 8:15 AM Age: 59 years old Clinical indication: Altered mental status/memory loss; Additional info: Cognitive delay, seems to have pain, unclear where TECHNIQUE: Imaging protocol: Computed tomography of the head without contrast. Radiation optimization: All CT scans at this facility use at least one of these dose optimization techniques: automated exposure control; mA and/or kV adjustment per patient size (includes targeted exams where dose is matched to clinical indication); or iterative reconstruction. COMPARISON: CT HEAD/BRAIN WO CON 11/29/2024 12:44 PM FINDINGS: Brain: Normal. No hemorrhage. Unremarkable white matter. No mass effect. Cerebral ventricles: No ventriculomegaly. Paranasal sinuses: Visualized sinuses are unremarkable. No fluid levels. Mastoid air cells: Visualized mastoid air cells are well aerated. Bones: Unremarkable. No acute fracture. Soft tissues: Unremarkable. IMPRESSION: No acute intracranial abnormality.
--- NOTE | 2024-12-26 06:38 | XR_ITS ---
PROCEDURE INFORMATION: Exam: XR Right Foot Exam date and time: 12/26/2024 7:20 AM Age: 59 years old Clinical indication: Other: Bruising, dorsal aspect of foot; Additional info: Bruising, history of falls TECHNIQUE: Imaging protocol: Radiologic exam of the right foot. Views: 3 or more views. COMPARISON: No relevant prior studies available. FINDINGS: Bones/joints: Minimally displaced fracture of the proximal phalanx of the little toe. It is unhealed.. 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 Soft tissues: Soft tissue swelling of the little toe IMPRESSION: 1. Minimally displaced fracture of the proximal phalanx of the little toe. It is unhealed.. 2. 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
--- NOTE | 2024-12-26 06:46 | [facility].EDGENADL ---
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 Family is concerned that patient seems to be in pain. They suspect she may have a fever because she feels hot but has been shivering like she is cold. Patient has also been generally weak. Patient has a long, extensive history but recently has had increased falls compared to prior. A few weeks ago she had a fall that left her bruised on her right side, they also have noticed bruising on the right foot. Family describes the patient having a cognitive function of the 4-year-old so she often climbs and crawls on things, plays with rocks and things that could be sharp or dangerous to her. Unfortunately she frequently has falls. No recent falls in the last 1 week that family knows of. Sister is concerned that patient may have UTI again, she has had these recurrently over the last few months and wears briefs. They deny the patient having any cough or congestion, they do states she has significant difficulty with swallowing and often aspirates, she has not been holding her chest or abdomen. She has not had any vomiting. Patient alternates between constipated and diarrhea, last bowel movement was 2 days ago. She has not been tugging at her ears. Appetite is unchanged. They do report she is difficult to get to eat a balanced diet because of her cognitive delay but her appetite has not changed. They report no obvious other injuries to the extremities other than the bruising on the right foot as discussed. Her sister is primarily concerned about the potential for infection, urinary tract infection, or potentially a broken bone due to her previous falls. 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 Related Data Previous Rx's ?Medication ?Instructions ?Recorded polyethylene glycol 3350 17 17 g PO DAILY #510 grams 02/25/24 gram/dose oral powder (Miralax) nystatin 100,000 unit/gram topical 1 applic topical TID #30 grams 07/14/24 ointment cetirizine 10 mg tablet (Zyrtec) 10 mg PO DAILY allergies #30 tabs 08/13/24 hydroxyzine HCl 50 mg tablet 50 mg PO BID 90 days #180 tabs 09/28/24 valacyclovir 500 mg tablet See Rx Instructions .Route 10/13/24 .COMPLEX #30 tabs Hospital Bed (DME) #1 ea 10/15/24 food supplemt, lactose-reduced 1 ea PO BID #2,844 mL 10/29/24 (Ensure High Protein oral liquid) sertraline 100 mg tablet 200 mg (2 x 100 mg) PO DAILY #180 11/02/24 tabs betamethasone dipropionate 0.05 % 1 applic topical BID #45 grams 11/03/24 topical cream fluconazole 150 mg tablet 150 mg PO Q3D yeast dermatitis #7 11/23/24 tabs clonazepam 2 mg tablet 4 mg (2 x 2 mg) PO BID #120 tabs 11/24/24 fluticasone propionate 50 1 spray intranasal DAILY 30 days 11/24/24 mcg/actuation nasal #16 grams spray,suspension cefdinir 300 mg capsule 300 mg PO BID 10 days #20 caps 11/29/24 nystatin 100,000 unit/gram topical 1 applic topical TID #30 grams 11/29/24 powder pantoprazole 40 mg tablet,delayed 40 mg PO DAILY #30 tabs 12/17/24 release trazodone 50 mg tablet See Rx Instructions .Route 12/24/24 .COMPLEX #60 tabs Allergies Allergy/AdvReac Type Severity Reaction Status Date / Time aspirin AdvReac Adan's Verified 11/23/24 12:59 syndrome [facility] <Kam Frank MD - Last Filed: 12/26/24 07:08> [facility] Disclaimer: The information contained in this section may have been updated after the patient was seen, as this information can be updated by other users. Medical History Aspiration of food Chronic static encephalopathy Autism Surgical History History of laparoscopic cholecystectomy H/O esophagogastroduodenoscopy History of dental surgery Family History Father Diabetes Heart attack Kidney disease Stroke Mother Diabetes Grandmother Diabetes Grandfather Diabetes Social History Smoking Status: Never smoker alcohol intake: never substance use type: denies use current occupational status: disabled Travel in the last 8 weeks?: None household members: other details: sister housing: house Have you lived/traveled outside [place] in past 30 days?: No Contact w/someone who lives/traveled outside US past 30 days?: No Exposure to someone with infectious disease in past 14 days?: No Do you have a fever (greater than 100.4 F or 38 C)?: No Have you tested positive for COVID-19?: No Exposed to someone with COVID-19 in past 14 days?: No Do you have a sore throat?: No Do you have a cough?: No Do you have any weakness?: Yes Do you have any diarrhea?: No Are you experiencing any unusual bleeding?: No Do you have any muscle aches/pain?: No Do you have any abdominal pain?: No Are you experiencing loss of taste or smell?: No Other Medical History Have you received the Flu Vaccine for this season: No Have you received the Pneumonia Vaccine: No <Kam Frank MD - Last Filed: 12/26/24 07:08> ROS Obtained: Yes unobtainable due to mental condition (Significant cognitive impairment, nonverbal, ROS provided by family) Physical Exam <Kam Frank MD - Last Filed: 12/26/24 07:08> General General appearance: alert Comment: Grunting, groaning, family reports this is similar to baseline but grunting has been worse than normal Head Head exam: atraumatic and normocephalic Eye Eye exam: Present PERRL and EOMI ENT ENT exam: Present normal oropharynx, mucous membranes moist, TM's normal bilaterally and normal external ear exam Neck Neck exam: Present normal inspection and full ROM; Absent tenderness (No deformity or step-off) Chest Chest inspection: Present symmetric chest wall rise and other (No bruising or abnormalities on visual exam); Absent tenderness Respiratory Respiratory exam: Present normal lung sounds bilaterally (Within limitations of exam, patient grunts and groans during the exam make it difficult to hear any adventitious expiratory sounds but inspiratory sounds are clear and patient is saturating well on room air); Absent respiratory distress, wheezes or stridor Cardiovascular Cardiovascular exam: Present regular rate and normal rhythm Abdominal Exam Abdominal exam: Present soft; Absent distention or tenderness External exam: Present normal external exam; Absent erythema, tenderness, swelling, lesions, lacerations or ecchymosis Speculum exam: Absent vaginal discharge Extremities Exam Extremities exam: Present full ROM, normal capillary refill and other (Healing ecchymosis left forearm, large area of ecchymosis to the right forefoot with no crepitus or deformity); Absent edema Back Exam Back exam: Absent CVA tenderness (R) or CVA tenderness (L) Back 1 view image:  1. Healing ecchymosis right flank along the most inferior, posterior/posterior lateral ribs with no crepitus or deformity Neurological Exam Neurological exam: Present alert and other (Patient will move all extremities, very limited in the left side, family reports her weakness and deficits are at baseline); Absent oriented X3 (Nonverbal, no verbal response, grunting and groaning) Skin Skin exam: Present warm and dry Medical Decision Making <Kam Frank MD - Last Filed: 12/26/24 07:08> Medical Records Medical records reviewed: Yes I reviewed the patient's medical records. Screening: Per USPSTF and CDC recommendations, given the prevalence of disease in our region, it is our hospital?s policy to screen for HIV and viral Hepatitis for all patients aged 18 and over and those with ongoing risk factors. MR Comment: Most recent urine culture result from November 2024 demonstrates E. coli sensitive to many medications but resistant to tetracycline, Bactrim, and ampicillin. Damien Inquiry Pt receiving controlled substance: No Vital Signs: 12/26/24 06:49 12/26/24 07:00 12/26/24 07:31 Temperature 101.8 F H Temperature Source Axillary Pulse Rate 97 H 96 H Pulse Rate [Right] 96 H Respiratory Rate 22 Blood Pressure 145/74 H 142/87 H Blood Pressure [Right Arm] 125/88 Blood Pressure Mean 88 99 Blood Pressure Mean [Right Arm] 100 02 Sat by Pulse Oximetry 98 98 98 Oxygen Delivery Method Room Air Room Air Room Air 12/26/24 08:33 12/26/24 09:00 Temperature Temperature Source Pulse Rate 86 90 Pulse Rate [Right] Respiratory Rate Blood Pressure 111/81 124/73 Blood Pressure [Right Arm] Blood Pressure Mean 89 87 Blood Pressure Mean [Right Arm] 02 Sat by Pulse Oximetry Oxygen Delivery Method Lab Data Lab Results 12/26/24 06:45: WBC 13.5 H, RBC 4.36, Hgb 12.4, Hct 37.5, MCV 86.0, MCH 28.4, MCHC 33.1, RDW 14.6, Plt Count 183, MPV 10.7 H, Neut % (Auto) 86.1 H, Lymph % (Auto) 8.5 L, [place] % (Auto) 4.4, Eos % (Auto) 0.5, Baso % (Auto) 0.2, Neut # (Auto) 11.6 H, Lymph # (Auto) 1.2, [place] # (Auto) 0.6, Eos # (Auto) 0.1, Baso # (Auto) 0.0, PT 11.0, INR 0.99, Sodium 139, Potassium 3.8, Chloride 106, Carbon Dioxide 27, Anion Gap 9.8, BUN 14, Creatinine 0.70, Estimated Creat Clear 86, Estimated GFR 86, Est GFR ( Amer) 104, Glucose 117 H, Lactate 1.0, Calcium 8.6, Total Bilirubin 0.7, AST 34, ALT 15, Alkaline Phosphatase 91, Troponin I < 0.01, Total Protein 8.0, Albumin 4.5, Globulin 3.5 H, Albumin/Globulin Ratio 1.3, Lipase 42 12/26/24 06:49: VBG pH 7.32, VBG pCO2 53.1 H, VBG pO2 36.5, VBG HCO3 26.6, VBG Total CO2 28.2 H, VBG O2 Saturation 67.8, VBG Base Excess 0.4, VBG Lactic Acid 1.5, Chlamy pneumoniae PCR Not detected, Adenovirus (PCR) Not detected, B. pertussis DNA (PCR) Not detected, Coronavirus OC43 (PCR) Not detected, Coronavirus HKU1 (PCR) Not detected, Coronavirus 229E (PCR) Not detected, SARS-CoV-2 (PCR) Not detected, Coronavirus NL63 (PCR) Not detected, Human Metapneumovir PCR Not detected, Influenza A (H1) PCR Not detected, Influ A (H1N1/09) PCR Not detected, Influenza A (H3) PCR Not detected, Influenza Type A (PCR) Not detected, Influenza Type B (PCR) Not detected, M. pneumoniae (PCR) Not detected, Parainfluenza 1 (PCR) Not detected, Parainfluenza 2 (PCR) Not detected, Parainfluenza 3 (PCR) Not detected, Parainfluenza 4 (PCR) Not detected, RSV (PCR) Not detected, Entero/Rhino (PCR) Not detected 12/26/24 07:06: Urine Color Yellow, Urine Appearance Cloudy, Urine pH 6.0, Ur Specific [place] 1.025, Urine Protein Trace, Urine Glucose (UA) Negative, Urine Ketones Negative, Urine Blood 2+ A, Urine Nitrate Negative, Urine Bilirubin Negative, Urine Urobilinogen 0.2, Ur Leukocyte Esterase 2+ A, Urine RBC 5-10, Urine WBC 50-100, Ur Squamous Epith Cells Occasional, Urine Bacteria 4+ 12/26/24 06:45 12/26/24 06:45 Orders (Tests/Meds): ED MEDICATIONS Generic Name Dose Route Start Last Admin Trade Name Freq PRN Reason Stop Dose Admin Acetaminophen 650 mg 12/26/24 09:42 Acetaminophen 325mg Tab PO 01/25/25 09:41 Q4HP PRN Fever or Mild Pain (1-3) Enoxaparin Sodium 40 mg 12/27/24 09:00 Enoxaparin 40mg/0.4ml Syringe SUBCUT 01/26/25 08:59 DAILY TRINIDAD Ceftriaxone Sodium 2 gm/ 100 mls @ 200 mls/hr 12/26/24 07:45 12/26/24 08:24 Sodium Chloride IV 01/05/25 07:44 200 mls/hr Q24H TRINIDAD Administration Azithromycin 500 mg/ Sodium 250 mls @ 250 mls/hr 12/26/24 09:00 12/26/24 09:13 Chloride IV 01/05/25 08:59 250 mls/hr Q24H TRINIDAD Administration Discontinued Medications Generic Name Dose Route Start Last Admin Trade Name Freq PRN Reason Stop Dose Admin Acetaminophen 1,000 mg 12/26/24 06:38 12/26/24 07:33 Acetaminophen 1,000mg/100ml Vial IV 12/26/24 06:39 1,000 mg ONCE ONE Administration Iopamidol 80 ml 12/26/24 08:26 12/26/24 08:27 Iopamidol-370 (76%);100ml Bottle IV 12/26/24 08:27 80 ml ONCE ONE Administration Sodium Chloride 10 ml 12/26/24 08:26 12/26/24 08:27 Sodium Chloride 0.9% 10ml Syr (Rad Only) IV 12/26/24 08:27 10 ml ONCE ONE Administration Sodium Chloride 50 ml 12/26/24 08:26 12/26/24 08:27 0.9 % Sodium Chloride 50 Ml Vial IV 12/26/24 08:27 50 ml ONCE ONE Administration ORDERS Category Date Time Status CT angio abdomen pelvis Stat Cat Scan 12/26/24 07:[address] angio chest PE protocol Stat Cat Scan 12/26/24 07:[address] head/brain wo con Stat Cat Scan 12/26/24 06:38 Completed Foot XR right minimum 3 views [XR foot RT min 3V] Stat Exams 12/26/24 06:38 Completed CBC w/Auto Diff [Complete Blood Count Auto Diff] Stat Lab 12/26/24 06:45 Completed CMP [Comprehensive Metabolic Panel] Stat Lab 12/26/24 06:45 Completed Complete Blood Count Auto Diff AMLAB Lab 12/27/24 06:00 Ordered Comprehensive Metabolic Panel AMLAB Lab 12/27/24 06:00 Ordered Full Resp Panel w/COVID ([facility]) Routine Lab 12/26/24 06:49 Completed Lactic Acid Stat Lab 12/26/24 06:45 Completed Lipase Stat Lab 12/26/24 06:45 Completed Magnesium AMLAB Lab 12/27/24 06:00 Ordered PT INR [Prothrombin Time INR] Stat Lab 12/26/24 06:45 Completed Trop I [Troponin I] Stat Lab 12/26/24 06:45 Completed Troponin I Q3H Lab 12/26/24 10:00 Ordered Troponin I Q3H Lab 12/26/24 13:00 Ordered UA [Urinalysis and Microscopic] Stat Lab 12/26/24 07:06 Completed Urine Chlam/Gono/Trich ([facility]) Stat Lab 12/26/24 07:06 Received Blood Culture Stat Micro 12/26/24 07:43 Received Urine Culture Stat Micro 12/26/24 07:06 Received VBG [Venous Blood Gas] Stat RT 12/26/24 06:49 Completed Medical Decision Narrative: In summary, this 59-year-old female with comorbidities described in the HPI presents to the emergency department today with concerns of fever, generalized weakness, family is worried that she is having pain somewhere but unable to indicate where secondary to cognitive delay. On initial evaluation patient is hemodynamically stable, febrile to 101.8 axillary, alert, grunting and groaning consistent with her nonverbal status but family states she has been vocalizing more than normal. No abnormalities on cardiac exam, pulmonary exam limited secondary to patient's frequent vocalizations but she is saturating well on room air, abdominal exam does not demonstrate acute abnormalities, she does have bruising over the right flank but appears to be older and healing, she also has some healing bruising on her left forearm. She does have bruising that appears to be slightly more new on the right foot but no crepitus or deformity. There does not appear to be acute traumatic injury to the head, neck, or other extremities. exam unremarkable. Differential diagnosis includes but is not limited to viral syndrome, pneumonia, urinary tract infection, intra-abdominal pathology including enteritis, pancreatitis, bowel obstruction, constipation, mesenteric ischemia, also considered ACS, PE, rib fractures, pneumothorax, hemothorax, intracranial bleed, traumatic injury including fractured foot or rib fractures. Ruling out the most morbid conditions drove my assessment. Based on these concerns, I ordered serum labs, urine studies, cardiac workup, CT imaging of the head, chest including PE scan, angiography of the abdomen pelvis. It took extensive time for nursing to be able to obtain an IV due to patient not being able to be compliant with them. IV fluids and IV Tylenol have been ordered. ECG, labs, and imaging pending at the time of physician handoff. Patient handed off to Dr. Cortes in stable condition pending workup. <Syed Cortes MD - Last Filed: 12/26/24 10:00> Vital Signs: 12/26/24 06:49 12/26/24 07:00 12/26/24 07:31 Temperature 101.8 F H Temperature Source Axillary Pulse Rate 97 H 96 H Pulse Rate [Right] 96 H Respiratory Rate 22 Blood Pressure 145/74 H 142/87 H Blood Pressure [Right Arm] 125/88 Blood Pressure Mean 88 99 Blood Pressure Mean [Right Arm] 100 02 Sat by Pulse Oximetry 98 98 98 Oxygen Delivery Method Room Air Room Air Room Air 12/26/24 08:33 12/26/24 09:00 Temperature Temperature Source Pulse Rate 86 90 Pulse Rate [Right] Respiratory Rate Blood Pressure 111/81 124/73 Blood Pressure [Right Arm] Blood Pressure Mean 89 87 Blood Pressure Mean [Right Arm] 02 Sat by Pulse Oximetry Oxygen Delivery Method Lab Data Lab Results 12/26/24 06:45: WBC 13.5 H, RBC 4.36, Hgb 12.4, Hct 37.5, MCV 86.0, MCH 28.4, MCHC 33.1, RDW 14.6, Plt Count 183, MPV 10.7 H, Neut % (Auto) 86.1 H, Lymph % (Auto) 8.5 L, [place] % (Auto) 4.4, Eos % (Auto) 0.5, Baso % (Auto) 0.2, Neut # (Auto) 11.6 H, Lymph # (Auto) 1.2, [place] # (Auto) 0.6, Eos # (Auto) 0.1, Baso # (Auto) 0.0, PT 11.0, INR 0.99, Sodium 139, Potassium 3.8, Chloride 106, Carbon Dioxide 27, Anion Gap 9.8, BUN 14, Creatinine 0.70, Estimated Creat Clear 86, Estimated GFR 86, Est GFR ( Amer) 104, Glucose 117 H, Lactate 1.0, Calcium 8.6, Total Bilirubin 0.7, AST 34, ALT 15, Alkaline Phosphatase 91, Troponin I < 0.01, Total Protein 8.0, Albumin 4.5, Globulin 3.5 H, Albumin/Globulin Ratio 1.3, Lipase 42 12/26/24 06:49: VBG pH 7.32, VBG pCO2 53.1 H, VBG pO2 36.5, VBG HCO3 26.6, VBG Total CO2 28.2 H, VBG O2 Saturation 67.8, VBG Base Excess 0.4, VBG Lactic Acid 1.5, Chlamy pneumoniae PCR Not detected, Adenovirus (PCR) Not detected, B. pertussis DNA (PCR) Not detected, Coronavirus OC43 (PCR) Not detected, Coronavirus HKU1 (PCR) Not detected, Coronavirus 229E (PCR) Not detected, SARS-CoV-2 (PCR) Not detected, Coronavirus NL63 (PCR) Not detected, Human Metapneumovir PCR Not detected, Influenza A (H1) PCR Not detected, Influ A (H1N1/09) PCR Not detected, Influenza A (H3) PCR Not detected, Influenza Type A (PCR) Not detected, Influenza Type B (PCR) Not detected, M. pneumoniae (PCR) Not detected, Parainfluenza 1 (PCR) Not detected, Parainfluenza 2 (PCR) Not detected, Parainfluenza 3 (PCR) Not detected, Parainfluenza 4 (PCR) Not detected, RSV (PCR) Not detected, Entero/Rhino (PCR) Not detected 12/26/24 07:06: Urine Color Yellow, Urine Appearance Cloudy, Urine pH 6.0, Ur Specific [place] 1.025, Urine Protein Trace, Urine Glucose (UA) Negative, Urine Ketones Negative, Urine Blood 2+ A, Urine Nitrate Negative, Urine Bilirubin Negative, Urine Urobilinogen 0.2, Ur Leukocyte Esterase 2+ A, Urine RBC 5-10, Urine WBC 50-100, Ur Squamous Epith Cells Occasional, Urine Bacteria 4+ Orders (Tests/Meds): ED MEDICATIONS Generic Name Dose Route Start Last Admin Trade Name Freq PRN Reason Stop Dose Admin Acetaminophen 650 mg 12/26/24 09:42 Acetaminophen 325mg Tab PO 01/25/25 09:41 Q4HP PRN Fever or Mild Pain (1-3) Enoxaparin Sodium 40 mg 12/27/24 09:00 Enoxaparin 40mg/0.4ml Syringe SUBCUT 01/26/25 08:59 DAILY TRINIDAD Ceftriaxone Sodium 2 gm/ 100 mls @ 200 mls/hr 12/26/24 07:45 12/26/24 08:24 Sodium Chloride IV 01/05/25 07:44 200 mls/hr Q24H TRINIDAD Administration Azithromycin 500 mg/ Sodium 250 mls @ 250 mls/hr 12/26/24 09:00 12/26/24 09:13 Chloride IV 01/05/25 08:59 250 mls/hr Q24H TRINIDAD Administration Discontinued Medications Generic Name Dose Route Start Last Admin Trade Name Freq PRN Reason Stop Dose Admin Acetaminophen 1,000 mg 12/26/24 06:38 12/26/24 07:33 Acetaminophen 1,000mg/100ml Vial IV 12/26/24 06:39 1,000 mg ONCE ONE Administration Iopamidol 80 ml 12/26/24 08:26 12/26/24 08:27 Iopamidol-370 (76%);100ml Bottle IV 12/26/24 08:27 80 ml ONCE ONE Administration Sodium Chloride 10 ml 12/26/24 08:26 12/26/24 08:27 Sodium Chloride 0.9% 10ml Syr (Rad Only) IV 12/26/24 08:27 10 ml ONCE ONE Administration Sodium Chloride 50 ml 12/26/24 08:26 12/26/24 08:27 0.9 % Sodium Chloride 50 Ml Vial IV 12/26/24 08:27 50 ml ONCE ONE Administration ORDERS Category Date Time Status CT angio abdomen pelvis Stat Cat Scan 12/26/24 07:[address] angio chest PE protocol Stat Cat Scan 12/26/24 07:[address] head/brain wo con Stat Cat Scan 12/26/24 06:38 Completed Foot XR right minimum 3 views [XR foot RT min 3V] Stat Exams 12/26/24 06:38 Completed CBC w/Auto Diff [Complete Blood Count Auto Diff] Stat Lab 12/26/24 06:45 Completed CMP [Comprehensive Metabolic Panel] Stat Lab 12/26/24 06:45 Completed Complete Blood Count Auto Diff AMLAB Lab 12/27/24 06:00 Ordered Comprehensive Metabolic Panel AMLAB Lab 12/27/24 06:00 Ordered Full Resp Panel w/COVID ([facility]) Routine Lab 12/26/24 06:49 Completed Lactic Acid Stat Lab 12/26/24 06:45 Completed Lipase Stat Lab 12/26/24 06:45 Completed Magnesium AMLAB Lab 12/27/24 06:00 Ordered PT INR [Prothrombin Time INR] Stat Lab 12/26/24 06:45 Completed Trop I [Troponin I] Stat Lab 12/26/24 06:45 Completed Troponin I Q3H Lab 12/26/24 10:00 Ordered Troponin I Q3H Lab 12/26/24 13:00 Ordered UA [Urinalysis and Microscopic] Stat Lab 12/26/24 07:06 Completed Urine Chlam/Gono/Trich ([facility]) Stat Lab 12/26/24 07:06 Received Blood Culture Stat Micro 12/26/24 07:43 Received Urine Culture Stat Micro 12/26/24 07:06 Received VBG [Venous Blood Gas] Stat RT 12/26/24 06:49 Completed ECG Data Tracing #1: I reviewed this ECG and interpreted as documented below: Normal sinus rhythm. Significant motion artifact in V4, V5 and V6. No evidence of STEMI. Medical Decision Narrative: In summary, this 59-year-old female with comorbidities described in the HPI presents to the emergency department today with concerns of fever, generalized weakness, family is worried that she is having pain somewhere but unable to indicate where secondary to cognitive delay. On initial evaluation patient is hemodynamically stable, febrile to 101.8 axillary, alert, grunting and groaning consistent with her nonverbal status but family states she has been vocalizing more than normal. No abnormalities on cardiac exam, pulmonary exam limited secondary to patient's frequent vocalizations but she is saturating well on room air, abdominal exam does not demonstrate acute abnormalities, she does have bruising over the right flank but appears to be older and healing, she also has some healing bruising on her left forearm. She does have bruising that appears to be slightly more new on the right foot but no crepitus or deformity. There does not appear to be acute traumatic injury to the head, neck, or other extremities. exam unremarkable. Differential diagnosis includes but is not limited to viral syndrome, pneumonia, urinary tract infection, intra-abdominal pathology including enteritis, pancreatitis, bowel obstruction, constipation, mesenteric ischemia, also considered ACS, PE, rib fractures, pneumothorax, hemothorax, intracranial bleed, traumatic injury including fractured foot or rib fractures. Ruling out the most morbid conditions drove my assessment. Based on these concerns, I ordered serum labs, urine studies, cardiac workup, CT imaging of the head, chest including PE scan, angiography of the abdomen pelvis. It took extensive time for nursing to be able to obtain an IV due to patient not being able to be compliant with them. IV fluids and IV Tylenol have been ordered. ECG, labs, and imaging pending at the time of physician handoff. Patient handed off to Dr. Cortes in stable condition pending workup. Syed Cortes MD At the time my assumption of care, plan was to follow-up patient's laboratory workup, urinalysis and x-ray and CT imaging for fever with unknown origin as well as suspected pain. Ultimately, patient's workup showed mild leukocytosis of 13.5 with left shift. VBG showed normal pH of 7.32, lactate normal at 1.5. pCO2 is mildly elevated at 53.1 but bicarb normal at 26.6. Coagulation studies unremarkable. Electrolytes within normal limits. No LORA. Glucose normal at 117. Lactate normal at 1.0. Liver enzymes and bilirubin within normal limits. Initial troponin less than 0.01. Lipase normal at 42. Urinalysis appears grossly infected with 50-100 white blood cells, 5-10 red blood cells, 2+ leukocyte esterase, 4+ bacteria. Previous urine culture show Rocephin sensitive E. coli. Will administer 2 g of IV Rocephin at this time. CT imaging interpreted by me personally and demonstrated bilateral lower lobe groundglass opacities could represent aspiration versus pneumonia. Will also expand IV coverage for atypical pathology with azithromycin. CT abdomen pelvis demonstrated thickening of the urinary bladder wall but no other acute findings. CT head demonstrated no intracranial hemorrhage, mass or midline shift. See radiology report for details. X-ray imaging of the foot demonstrated a nonhealing mildly displaced fracture of the right fifth digit. See final radiology report for details. Given elevated white blood cell count with fever in the setting of urinary tract infection refractory to outpatient management as well as pneumonia concerning for sepsis, it is felt the patient will require admission for continued IV antibiotics. I discussed patient's case with Dr. Crawford with the hospital medicine service for admission. He was agreeable to admission at this time. Critical Care <Kam Frank MD - Last Filed: 12/26/24 07:08> Critical Care Time Critical Care Time: No
--- NOTE | 2024-12-26 06:54 | PC.NURSE ---
Respiratory contacted and made aware of need for VBG that was sent to the lab.
--- NOTE | 2024-12-26 06:55 | ECG_ITS ---
APPROVED REPORT Exam: Resting ECG HR:93 bpm ECG Measurements Heart Rate 93 AXES MD 129 P 75 QRSd 85 QRS 61 QT 368 T 62 QTc 418 Conclusion SINUS RHYTHM LOW QRS VOLTAGE IN PRECORDIAL LEADS [QRS DEFLECTION < 1.0 mV IN CHEST LEADS] No STEMI Electronically signed by : NAI DON, 12/27/2024 04:46:36
[2024-12-26 07:05] LABS: Adenovirus,PCR Not Detected (NotDetected); Chlamydophila Pneumoniae, PCR Not Detected (NotDetected); Coronavirus 19, PCR Not Detected (NotDetected); Coronovirus HKU1,PCR Not Detected (NotDetected); Influenza A, PCR Not Detected (NotDetected); Influenza AH1, 2009 Not Detected (NotDetected); Influenza AH1, PCR Not Detected (NotDetected); Influenza AH3,PCR Not Detected (NotDetected); Influenza B, PCR Not Detected (NotDetected); Mycoplasma Pneumoniae, PCR Not Detected (NotDetected); Parainfluenza 1, PCR Not Detected (NotDetected); Parainfluenza 2, PCR Not Detected (NotDetected); Parainfluenza 3, PCR Not Detected (NotDetected); Parainfluenza 4, PCR Not Detected (NotDetected)
--- NOTE | 2024-12-26 07:05 | CT_ITS ---
PROCEDURE INFORMATION: Exam: CTA Chest With Contrast Exam date and time: 12/26/2024 8:18 AM Age: 59 years old Clinical indication: Pain; Fever; Other: PT unable to voice where; Additional info: Cognitive delay, fever, aspiration, pain TECHNIQUE: Imaging protocol: Computed tomographic angiography of the chest with contrast. Exam focused on the arteries. 3D rendering (Not supervised by radiologist): MIP and/or 3D reconstructed images were created by the technologist. Radiation optimization: All CT scans at this facility use at least one of these dose optimization techniques: automated exposure control; mA and/or kV adjustment per patient size (includes targeted exams where dose is matched to clinical indication); or iterative reconstruction. Contrast material: ISOVUE; Contrast volume: 80 ml; Contrast route: INTRAVENOUS (IV); COMPARISON: CT ANGIO CHEST PE PROTOCOL 07/09/2024 8:30 PM FINDINGS: Pulmonary arteries: No evidence of pulmonary embolus to the segmental level. Aorta: No aneurysm of the aorta. No dissection of the aorta. Lungs: Patchy ground-glass opacities throughout the lung gerardo may represent multifocal pneumonia . Pleural spaces: Unremarkable. No pneumothorax. No pleural effusion. Heart: Pericardial effusion. Lymph nodes: Unremarkable. No enlarged lymph nodes. Bones/joints: Unremarkable. No acute fracture. Soft tissues: Unremarkable. IMPRESSION: 1. No evidence of pulmonary embolus to the segmental level. 2. Patchy ground-glass opacities throughout the lung gerardo may represent multifocal pneumonia . . Differential includes aspiration 3. Pericardial effusion.
--- NOTE | 2024-12-26 07:05 | CT_ITS ---
PROCEDURE INFORMATION: Exam: CTA Abdomen and Pelvis With Contrast Exam date and time: 12/26/2024 8:18 AM Age: 59 years old Clinical indication: Pain; Fever; Other: PT unable to voice where; Additional info: Cognitive delay, fever, aspiration, pain TECHNIQUE: Imaging protocol: Computed tomographic angiography of the abdomen and pelvis with contrast. Exam focused on the arteries. 3D rendering (Not supervised by radiologist): MIP and/or 3D reconstructed images were created by the technologist. Radiation optimization: All CT scans at this facility use at least one of these dose optimization techniques: automated exposure control; mA and/or kV adjustment per patient size (includes targeted exams where dose is matched to clinical indication); or iterative reconstruction. Contrast material: ISOVUE; Contrast volume: 80 ml; Contrast route: INTRAVENOUS (IV); COMPARISON: CT ABDOMEN PELVIS W CON 07/09/2024 8:30 PM FINDINGS: Aorta: No aortic aneurysm. No aortic dissection. Celiac trunk and mesenteric arteries: No occlusion or significant stenosis. Renal arteries: No occlusion or significant stenosis. Right iliac arteries: No occlusion or significant stenosis. Left iliac arteries: No occlusion or significant stenosis. Liver: No mass. Gallbladder and biliary ducts: Cholecystectomy Pancreas: Unremarkable. No mass. No ductal dilation. Spleen: Unremarkable. No splenomegaly. Adrenal glands: Unremarkable. No mass. Kidneys and ureters: Unremarkable. No solid mass. No hydronephrosis. Stomach and bowel: Unremarkable. No obstruction. No mucosal thickening. Appendix: No evidence of appendicitis. Intraperitoneal space: Unremarkable. No free air. No significant fluid collection. Lymph nodes: Unremarkable. No enlarged lymph nodes. Urinary bladder: The bladder wall measures nine mm. . The bladder mucosa enhances This is nonspecific and may represent inflammation or infection. Neoplastic process is included in the differential. Reproductive: Unremarkable as visualized. Bones/joints: No acute fracture. Soft tissues: Unremarkable. IMPRESSION: The bladder wall measures nine mm. . The bladder mucosa enhances This is nonspecific and may represent inflammation or infection. Neoplastic process is included in the differential.
[2024-12-26 07:06] LABS: Hematocrit 37.5 % (37.0-47.0); Hemoglobin 12.4 g/dL (12.2-16.2); Immature Granulocytes % 0.3 %; Mean Corpuscular HGB Conc 33.1 g/dL (31.8-35.4); Mean Corpuscular Hemoglobin 28.4 pg (27.0-31.2); Mean Corpuscular Volume 86.0 fl (81-99); Nucleated Red Blood Cells % 0 %; Platelet Count 183 K/mm3 (142-424); Red Blood Count 4.36 M/mm3 (4.20-5.40); Red Cell Distribution Width-SD 45.5 fL; White Blood Count 13.5 K/mm3 (4.8-10.8)
[2024-12-26 07:08] LABS: VBG PH 7.32 mmol/L (7.31-7.41)
[2024-12-26 07:10] LABS: Lactate Venous 1.5 mmol/L (0.4-2.0); VBG HCO3 26.6 mmol/L (23-30); VBG PCO2 53.1 mmol/L (35-51); VBG PO2 36.5 mmol/L (28-40)
[2024-12-26 07:15] LABS: Albumin Level 4.5 g/dl (3.5-5.0); Chloride 106 mmol/L (98-107); Potassium 3.8 mmoL/L (3.5-5.1); Sodium 139 mmol/L (136-145)
[2024-12-26 07:17] LABS: Microscopic, Urine URINE MICROSCOPIC (MICROSCOPIC)
[2024-12-26 07:18] LABS: Alanine Aminotransferase 15 U/L (12-78); Albumin/Globulin Ratio 1.3 (1.1-1.8); Alkaline Phosphatase 91 U/L (38-126); Anion Gap 9.8 mEq/L (5-15); Aspartate Amino Transferase 34 U/L (14-36); Bilirubin,Total 0.7 mg/dl (0.2-1.3); Blood Urea Nitrogen 14 mg/dl (7-17); Calcium 8.6 mg/dl (8.4-10.2); Carbon Dioxide 27 mmol/L (22.0-30.0); Creatinine Clearance Estimated 86 mL/min (50-200); Creatinine,Serum 0.70 mg/dl (0.52-1.04); Estimated Glomerular Filt Rate 86 ml/min (>60); GFR (African American) 104 ML/MIN (>60); Globulin 3.5 g/dL (1.3-3.2); Glucose 117 mg/dl (74-100); Lipase 42 U/L (23-300); Total Protein,Serum 8.0 g/dl (6.3-8.2)
[2024-12-26 07:20] LABS: INR 0.99 (0.9-1.1); Prothrombin Time 11.0 seconds (10.1-12.5)
[2024-12-26 07:22] LABS: Bilirubin,Urine Negative (Negative); Color,Urine YELLOW (Yellow); Glucose,Urine (UA) Negative (Negative); Ketones,Urine Negative (Negative); Leukocyte Esterase,Urine 2+ (Negative); PH,Urine 6.0 (5.0-8.5); Protein,Urine TRACE (Negative); Specific Gravity, Urine 1.025 (1.005-1.030); Urobilinogen,Urine 0.2 EU/dl (0.2)
[2024-12-26 07:31] LABS: WBC,Urine 50-100 #/hpf (0-3)
[2024-12-26 07:32] LABS: Bacteria,Urine 4+ /lpf; Squamous Epithelial Cell,Urine Occasional #/hpf (0-5)
[2024-12-26 07:32] LABS: Troponin I < 0.01 ng/ml (0.00-0.034)
[2024-12-26] MEDS: ACETAMINOPHEN 1,000MG/100ML VIAL 1000 MG IV (07:33)
--- NOTE | 2024-12-26 08:23 | PC.NURSE ---
pt back from CT at this time
[2024-12-26] MEDS: IOPAMIDOL-370 (76%);100ML BOTTLE 80 ML IV (08:27)
[2024-12-26] MEDS: SODIUM CHLORIDE 0.9% 10ML SYR (RAD ONLY) 10 ML IV (08:27)
[2024-12-26] MEDS: 0.9 % SODIUM CHLORIDE 50 ML VIAL IV (08:27)
[2024-12-26] MEDS: AZITHROMYCIN 500 MG in 0.9 % SODIUM CHLORIDE 250 ML 250 MG IV (09:13)
--- NOTE | 2024-12-26 09:38 | PC.NURSE ---
on phone with
--- NOTE | 2024-12-26 09:43 | PC.NURSE ---
notified house of admission with dx of UTI, Sepsis, and PNA.
--- NOTE | 2024-12-26 09:44 | EXP.HP ---
History of Present Illness *Admission Date: 12/26/24 *Reason for visit:: not acting right per caregiver, increased lethargy *History of present illness: Ms. 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 Her sister is her caregiver. Patient is nonverbal at baseline but generally interactive and communicates with various different sounds. She presented to the ER because family was concerned that the patient is more lethargic. She has felt warm but has not had tiki fever. Generally more weak and not ambulating, necessitating increased support to get around in wheelchair. Family states that patient has had a decline over the past several years. She tends to lean to the right and this is led to several falls. She was admitted earlier this year for abdominal pain and found to have cholecystitis/cholelithiasis. Elective cholecystectomy was performed and per patient's caregiver she has had recurrent UTIs since. She generally wears briefs. They go to the bathroom on a scheduled basis to encourage voiding regularly. Generally does not hold her bladder longer than a couple hours. Has somewhat regular bowel movements though does alternate between constipation and diarrhea. P.o. intake has been somewhat decreased over the past day or 2. On workup in the ER, patient was found to have white count of 13. Fever 101.8. She was tachycardic and tachypneic on initial presentation. Chest imaging concerning for pneumonia and urine grossly abnormal concerning for UTI. Medicine consulted for admission and treatment of sepsis secondary to pneumonia versus UTI. On evaluation after arriving to the floor, patient is alert but does not follow commands. Sister answers all questions. Appears in mild distress but no significant acute distress. On room air. [facility] Disclaimer: The information contained in this section may have been updated after the patient was seen, as this information can be updated by other users. Medical History (Updated 12/26/24 @ 13:40 by Bismark Crawford MD) Late effect of Adan's syndrome Aspiration of food Chronic static encephalopathy Autism Surgical History History of laparoscopic cholecystectomy H/O esophagogastroduodenoscopy History of dental surgery Family History Father Diabetes Heart attack Kidney disease Stroke Mother Diabetes Grandmother Diabetes Grandfather Diabetes Social History Smoking Status: Never smoker alcohol intake: never substance use type: denies use current occupational status: disabled Travel in the last 8 weeks?: None household members: other details: sister housing: house Have you lived/traveled outside [place] in past 30 days?: No Contact w/someone who lives/traveled outside [place] past 30 days?: No Exposure to someone with infectious disease in past 14 days?: No Do you have a fever (greater than 100.4 F or 38 C)?: No Have you tested positive for COVID-19?: No Exposed to someone with COVID-19 in past 14 days?: No Do you have a sore throat?: No Do you have a cough?: No Do you have any weakness?: Yes Are you experiencing any nausea/vomitting?: No Do you have any diarrhea?: No Are you experiencing any unusual bleeding?: No Do you have any muscle aches/pain?: No Do you have any abdominal pain?: No Are you experiencing loss of taste or smell?: No Other Medical History Have you received the Flu Vaccine for this season: No Have you received the Pneumonia Vaccine: No Review of Systems Review of Systems Review of systems:: unable to obtain Review of systems (narrative): Reviewed as best possible with caregiver, unable to obtain from patient Meds Home Medications and Allergies Home Medications ?Medication ?Instructions ?Recorded ?Confirmed ?Type hydroxyzine HCl 50 mg tablet 50 mg PO BID 90 days #180 tabs 09/28/24 12/26/24 Rx Hospital Bed (DME) #1 ea 10/15/24 12/26/24 Rx food supplemt, lactose-reduced 1 ea PO BID #2,844 mL 10/29/24 12/26/24 Rx (Ensure High Protein oral liquid) sertraline 100 mg tablet 200 mg (2 x 100 mg) PO DAILY #180 11/02/24 12/26/24 Rx tabs clonazepam 2 mg tablet 4 mg (2 x 2 mg) PO BID #120 tabs 11/24/24 12/26/24 Rx fluticasone propionate 50 1 spray intranasal DAILY 30 days 11/24/24 12/26/24 Rx mcg/actuation nasal #16 grams spray,suspension pantoprazole 40 mg tablet,delayed 40 mg PO DAILY #30 tabs 12/17/24 12/26/24 Rx release cetirizine 10 mg tablet (Zyrtec) 10 mg PO DAILY 12/26/24 12/26/24 History trazodone 50 mg tablet 100 mg PO HS 12/26/24 12/26/24 History valacyclovir 1 gram tablet 1,000 mg PO DAILY 12/26/24 12/26/24 History New Prescriptions to Start Prescriptions: Allergies Allergy/AdvReac Type Severity Reaction Status Date / Time aspirin AdvReac Adan's Verified 11/23/24 12:59 syndrome Exam Data for Last 24 hours Vital signs and Labs for Last 24 Hours: Temp Pulse Resp BP Pulse Ox O2 Del Method 101.8 F H 90 22 124/73 98 Room Air 12/26/24 06:49 12/26/24 09:00 12/26/24 06:49 12/26/24 09:00 12/26/24 07:31 12/26/24 07:31 Laboratory Results - last 24 hr 12/26/24 06:45: WBC 13.5 H, RBC 4.36, Hgb 12.4, Hct 37.5, MCV 86.0, MCH 28.4, MCHC 33.1, RDW 14.6, Plt Count 183, MPV 10.7 H, Neut % (Auto) 86.1 H, Lymph % (Auto) 8.5 L, Dickinson % (Auto) 4.4, Eos % (Auto) 0.5, Baso % (Auto) 0.2, Neut # (Auto) 11.6 H, Lymph # (Auto) 1.2, Dickinson # (Auto) 0.6, Eos # (Auto) 0.1, Baso # (Auto) 0.0, PT 11.0, INR 0.99, Sodium 139, Potassium 3.8, Chloride 106, Carbon Dioxide 27, Anion Gap 9.8, BUN 14, Creatinine 0.70, Estimated Creat Clear 86, Estimated GFR 86, Est GFR ( Amer) 104, Glucose 117 H, Lactate 1.0, Calcium 8.6, Total Bilirubin 0.7, AST 34, ALT 15, Alkaline Phosphatase 91, Troponin I < 0.01, Total Protein 8.0, Albumin 4.5, Globulin 3.5 H, Albumin/Globulin Ratio 1.3, Lipase 42 12/26/24 06:49: VBG pH 7.32, VBG pCO2 53.1 H, VBG pO2 36.5, VBG HCO3 26.6, VBG Total CO2 28.2 H, VBG O2 Saturation 67.8, VBG Base Excess 0.4, VBG Lactic Acid 1.5, Chlamy pneumoniae PCR Not detected, Adenovirus (PCR) Not detected, B. pertussis DNA (PCR) Not detected, Coronavirus OC43 (PCR) Not detected, Coronavirus HKU1 (PCR) Not detected, Coronavirus 229E (PCR) Not detected, SARS-CoV-2 (PCR) Not detected, Coronavirus NL63 (PCR) Not detected, Human Metapneumovir PCR Not detected, Influenza A (H1) PCR Not detected, Influ A (H1N1/09) PCR Not detected, Influenza A (H3) PCR Not detected, Influenza Type A (PCR) Not detected, Influenza Type B (PCR) Not detected, M. pneumoniae (PCR) Not detected, Parainfluenza 1 (PCR) Not detected, Parainfluenza 2 (PCR) Not detected, Parainfluenza 3 (PCR) Not detected, Parainfluenza 4 (PCR) Not detected, RSV (PCR) Not detected, Entero/Rhino (PCR) Not detected 12/26/24 07:06: Urine Color Yellow, Urine Appearance Cloudy, Urine pH 6.0, Ur Specific [place] 1.025, Urine Protein Trace, Urine Glucose (UA) Negative, Urine Ketones Negative, Urine Blood 2+ A, Urine Nitrate Negative, Urine Bilirubin Negative, Urine Urobilinogen 0.2, Ur Leukocyte Esterase 2+ A, Urine RBC 5-10, Urine WBC 50-100, Ur Squamous Epith Cells Occasional, Urine Bacteria 4+ I & O for Last 24 hours: Intake & Output 12/23/24 12/24/24 12/25/24 12/26/24 23:59 23:59 23:59 23:59 Weight 61.235 kg Constitutional Constitutional: mild distress, average body habitus, chronically ill appearing and disheveled *Routine HEENT Exam Head: Present normocephalic Eye: Present EOMI and PERRL ENT: Present mucous membranes moist Comments: Poor dentition *Routine Neck Exam Neck: Present supple; Absent lymphadenopathy *Routine Respiratory Exam Respiratory: Present rhonchi; Absent wheezes or crackles *Routine Cardiovascular Exam Cardiovascular: Present RRR *Routine Abdominal Exam Abdominal: Present soft, normoactive bowel sounds and tenderness (Nonfocal); Absent distended or rebound *Routine Rectal Exam Rectal:: deferred *Routine Genitalia Exam Genitalia:: deferred *Routine Extremities Exam Extremities: Absent cyanosis, clubbing or edema Comments: Sarcopenia; stiff lower extremities at baseline *Routine Skin Exam Skin: Present intact and warm; Absent rash *Routine Neurological Exam Neurological: Present alert, altered mental status and moving all extremities; Absent normal speech Comments: non verbal Routine Psychiatric Exam Psychiatric: Present unable to assess Assessment and Plan *Assessment and plan (1) Pneumonia: Status: Acute Category: Medical Code(s): J18.9 - Pneumonia, unspecified organism (2) Nausea & vomiting: Status: Acute Category: Medical Code(s): R11.2 - Nausea with vomiting, unspecified (3) Sepsis: Status: Acute Category: Medical Code(s): A41.9 - Sepsis, unspecified organism (4) Urinary tract infection: Status: Acute Category: Medical Code(s): N39.0 - Urinary tract infection, site not specified (5) Aspiration pneumonia of both lower lobes: Status: Acute Category: Medical Code(s): J69.0 - Pneumonitis due to inhalation of food and vomit (6) Fracture of right toe with delayed healing: Status: Acute Category: Medical Code(s): S92.911G - Unspecified fracture of right toe(s), subsequent encounter for fracture with delayed healing (7) Candidal intertrigo: Status: Acute Category: Medical Code(s): B37.2 - Candidiasis of skin and nail (8) Chronic static encephalopathy: Status: Chronic Category: Medical Code(s): G93.49 - Other encephalopathy (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 On arrival was found to have concern for aspiration pneumonia and right lower lung field and recurrent UTI. Meeting sepsis criteria with white count of 13.5, fever of 101.8, tachycardic with heart rate at 96 and respiratory rate 22. In light of her sepsis, lethargy, multiple infections, had interactive discussion with ER physician who requested admission for further management. I decided to admit for IV antibiotics and further care. Necessitating inpatient management due to patient's underlying developmental delay, high risk for decompensation, pneumonia and UTI along with sepsis. Problems addressed as follows: Sepsis secondary to pneumonia vs uti Suspected aspiration pneumonia E. coli urinary tract infection, recurrent - CT per my review showing multifocal patchy airspace disease, worse in right lung field. - Initiated on 2 g of ceftriaxone and 5 mg azithromycin. Will transition to Levaquin 750 mg daily in the morning for ease of transitioning to oral therapy for discharge home and for broad coverage of both potential sources of infection -Urinalysis with 4+ bacteria and positive for leuk esterase - Cultures from last month show E. coli sensitive to cephalosporins and fluoroquinolones. - Repeat cultures obtained, awaiting results - Will consider speech eval on Saturday for diet modification. History of Adan syndrome Nonverbal Cognitive delay/chronic neuromuscular debility Behavioral disturbances - Complicates all aspects of her care. Discussed that if patient becomes agitated, we will trial nonpharmacologic methods of reorientation and calming patient with one-on-one support. Does not use sedatives at home other than trazodone at night to help patient's sleep and Klonopin 4 mg twice daily - Resume Zoloft 200 mg daily, trazodone 100 mg nightly, hydroxyzine 50 mg twice daily as needed, Klonopin use dose of 2 mg twice daily as needed Discussed CODE STATUS, sister who is patient's caregiver expresses desire to focus on quality and comfort over quantity and duration of life however struggling with CODE STATUS. Will leave patient is full code at this time, reevaluate CODE STATUS in the morning. Provided with copy of [facility] for further discussion and consideration of advanced directives. Lovenox 40 mg subcu daily Mechanical soft diet
--- NOTE | 2024-12-26 10:00 | PC.NURSE ---
Report given to ALFONSO Aldridge for room 207
--- NOTE | 2024-12-26 10:02 | HMH.PHAINT1 ---
Pharmacy Intervention Comments: MEDICATION RECONCILIATION COMPLETED ON PATIENT USING EXTERNAL FILL HISTORY FROM PHARMACY AND LIST FROM PCP OFFICE. -ISABEL MO, SABRINAD
--- NOTE | 2024-12-26 10:27 | PC.NURSE ---
Patient arrived on floor via stretcher from ED at 1027
[2024-12-26] MEDS: LACTATED RINGERS 1000ML 1,000 ML 125 ML IV (17:51)
--- NOTE | 2024-12-26 18:21 | PC.NURSE ---
Pt was admitted for UTI, sepsis, and pneumonia. sister who is caregiver reported pt not being herself and decreased activity. brought to ER and admitted. pt is nonverbal but sister is at bedside and communicates for pt. she is being treated with IV antibiotics and she is getting a 500 ml bolus of lactated ringers.bed alarm is on. no other needs at this time. call light within reach. safety measures in place.
[2024-12-26] MEDS: PANTOPRAZOLE 40MG TABLET 40 MG PO (20:17)
[2024-12-26] MEDS: TRAZODONE 50MG TABLET 100 MG PO (20:18)
--- NOTE | 2024-12-27 02:40 | PC.NURSE ---
Pt nonverbal. Sister at bedside. Currently resting in bed with eyes open. Was agitated earlier, but received prn vistaril and is now resting in bed. Respirations even and unlabored. Bed is low, locked, and call light is in reach.
[2024-12-27 06:22] LABS: Hematocrit 33.4 % (37.0-47.0); Immature Granulocytes % 0.3 %; Mean Corpuscular HGB Conc 32.9 g/dL (31.8-35.4); Mean Corpuscular Hemoglobin 28.2 pg (27.0-31.2); Mean Corpuscular Volume 85.6 fl (81-99); Nucleated Red Blood Cells % 0 %; Platelet Count 168 K/mm3 (142-424); Red Blood Count 3.90 M/mm3 (4.20-5.40); Red Cell Distribution Width-SD 44.9 fL; White Blood Count 9.7 K/mm3 (4.8-10.8)
[2024-12-27 06:29] LABS: Chloride 110 mmol/L (98-107); Sodium 139 mmol/L (136-145)
[2024-12-27 06:30] LABS: Potassium 3.3 mmoL/L (3.5-5.1)
[2024-12-27 06:32] LABS: Alanine Aminotransferase 13 U/L (12-78); Alkaline Phosphatase 83 U/L (38-126); Anion Gap 5.3 mEq/L (5-15); Aspartate Amino Transferase 24 U/L (14-36); Bilirubin,Total 0.4 mg/dl (0.2-1.3); Blood Urea Nitrogen 13 mg/dl (7-17); Carbon Dioxide 27 mmol/L (22.0-30.0); Creatinine Clearance Estimated 102 mL/min (50-200); Creatinine,Serum 0.60 mg/dl (0.52-1.04); Estimated Glomerular Filt Rate 103 ml/min (>60); GFR (African American) 125 ML/MIN (>60); Total Protein,Serum 6.3 g/dl (6.3-8.2)
[2024-12-27 06:33] LABS: Calcium 8.6 mg/dl (8.4-10.2); Glucose 93 mg/dl (74-100); Magnesium 2.1 mg/dl (1.6-2.3)
[2024-12-27 07:28] LABS: Albumin Level 3.6 g/dl (3.5-5.0); Albumin/Globulin Ratio 1.3 (1.1-1.8); Globulin 2.7 g/dL (1.3-3.2)
[2024-12-27 07:36] LABS: Hemoglobin 11.0 g/dL (12.2-16.2)
[2024-12-27] MEDS: SERTRALINE 100MG TABLET 200 MG PO (09:21)
[2024-12-27 09:30] VITALS: BMI 26.8
[2024-12-27 09:32] VITALS: BP 147/77; PULSE 69; RESP 22; TEMP 36.3; O2SAT 94
--- NOTE | 2024-12-27 10:16 | EXP.DC.SUM ---
General Admission date:: 12/26/24 Discharge date: 12/27/24 HPI HPI HPI: Ms. 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 Her sister is her caregiver. Patient is nonverbal at baseline but generally interactive and communicates with various different sounds. She presented to the ER because family was concerned that the patient is more lethargic. She has felt warm but has not had tiki fever. Generally more weak and not ambulating, necessitating increased support to get around in wheelchair. Family states that patient has had a decline over the past several years. She tends to lean to the right and this is led to several falls. She was admitted earlier this year for abdominal pain and found to have cholecystitis/cholelithiasis. Elective cholecystectomy was performed and per patient's caregiver she has had recurrent UTIs since. She generally wears briefs. They go to the bathroom on a scheduled basis to encourage voiding regularly. Generally does not hold her bladder longer than a couple hours. Has somewhat regular bowel movements though does alternate between constipation and diarrhea. P.o. intake has been somewhat decreased over the past day or 2. On workup in the ER, patient was found to have white count of 13. Fever 101.8. She was tachycardic and tachypneic on initial presentation. Chest imaging concerning for pneumonia and urine grossly abnormal concerning for UTI. Medicine consulted for admission and treatment of sepsis secondary to pneumonia versus UTI. On evaluation after arriving to the floor, patient is alert but does not follow commands. Sister answers all questions. Appears in mild distress but no significant acute distress. On room air. Hospital Course Hospital Course Hospital Course: 59-year-old female with history of Adan syndrome, nonverbal, decreased mobility and recurrent UTIs who presented to the ER because of increased lethargy and decreased verbal/communication with caregiver. On arrival was found to have concern for aspiration pneumonia and right lower lung field and recurrent UTI. Meeting sepsis criteria with white count of 13.5, fever of 101.8, tachycardic with heart rate at 96 and respiratory rate 22. In light of her sepsis, lethargy, multiple infections, had interactive discussion with ER physician who requested admission for further management. I decided to admit for IV antibiotics and further care. Necessitating inpatient management due to patient's underlying developmental delay, high risk for decompensation, pneumonia and UTI along with sepsis. Showed improvement clinically. Back to baseline level of function by morning after initiating IV antibiotics. Transition to oral Levaquin to complete empiric course based on previous sensitivities. Recommend close follow-up with PCP to discuss prophylactic management. Problems addressed as follows: Sepsis secondary to pneumonia vs uti Suspected aspiration pneumonia E. coli urinary tract infection, recurrent - CT per my review showing multifocal patchy airspace disease, worse in right lung field. Concerning for component of aspiration. Discussed risks and benefits of feeding tubes. At this time family would like to hold on any intervention. Focus on quality and allow patient to eat if she feels like it. Also concerned about patient's ability to participate with barium swallow and follow directions. I see low utility in proceeding with the study due to difficulty in administering contrast for swallowing and following directions during procedure. Patient was initially started on 2 g ceftriaxone IV and 500 mg azithromycin. Transitioned to Levaquin to complete 7-day course of antibiotics for both UTI and pneumonia. Previous urine cultures are positive for E. coli sensitive to cephalosporins, fluoroquinolones, nitrofurantoin. Will also initiate Macrobid 100 mg daily as prophylaxis after completing Levaquin. History of Adan syndrome Nonverbal Cognitive delay/chronic neuromuscular debility Behavioral disturbances - Complicates all aspects of her care. Discussed that if patient becomes agitated, we will trial nonpharmacologic methods of reorientation and calming patient with one-on-one support. Does not use sedatives at home other than trazodone at night to help patient's sleep and Klonopin 4 mg twice daily - Resume Zoloft 200 mg daily, trazodone 100 mg nightly, hydroxyzine 50 mg twice daily as needed, Klonopin use dose of 2 mg twice daily as needed Discussed CODE STATUS and goals of care. Sister seemed emotional about this conversation. Has understanding of patient's underlying condition and severity of current illness but did not fully appear ready to have this conversation or make decisions at this time. Provided with a copy of 5 wishes to assist in discussions and decision making for advanced directive. Total time spent on discharge 32 minutes in counseling, documentation, chart review, and direct care with patient. Exam Data for Last 24 hours Vital signs and Labs for Last 24 Hours: Temp Pulse Resp BP Pulse Ox O2 Del Method 97.4 F L 69 22 147/77 H 94 L Room Air 12/27/24 09:32 12/27/24 09:32 12/27/24 09:32 12/27/24 09:32 12/27/24 09:32 12/27/24 09:32 Laboratory Results - last 24 hr 12/26/24 07:06: Ur C. trach DNA (PCR) Negative, U N.gonorrhoeae DNA PCR Negative, T. vaginalis (PCR) Negative 12/27/24 06:00: WBC 9.7 D, RBC 3.90 L, Hgb 11.0 L D, Hct 33.4 L, MCV 85.6, MCH 28.2, MCHC 32.9, RDW 14.5, Plt Count 168, MPV 10.7 H, Neut % (Auto) 61.0, Lymph % (Auto) 29.3, [place] % (Auto) 6.8, Eos % (Auto) 2.3, Baso % (Auto) 0.3, Neut # (Auto) 5.9, Lymph # (Auto) 2.9, [place] # (Auto) 0.7, Eos # (Auto) 0.2, Baso # (Auto) 0.0, Sodium 139, Potassium 3.3 L, Chloride 110 H, Carbon Dioxide 27, Anion Gap 5.3, BUN 13, Creatinine 0.60, Estimated Creat Clear 102, Estimated GFR 103, Est GFR ( Amer) 125 D, Glucose 93 D, Calcium 8.6, Magnesium 2.1, Total Bilirubin 0.4, AST 24 D, ALT 13, Alkaline Phosphatase 83, Total Protein 6.3, Albumin 3.6 D, Globulin 2.7, Albumin/Globulin Ratio 1.3 I & O for Last 24 hours: Intake & Output 12/24/24 12/25/24 12/26/24 12/27/24 23:59 23:59 23:59 23:59 Intake Total 480 / 480 150 / 150 Output Total 250 / 250 300 / 300 Balance 230 / 230 -150 / -150 Weight 62.341 kg 62.341 kg Microbiology Reports for the Last 24 Hours: Microbiology 12/26/24 07:43 Blood Blood Culture - Preliminary NO GROWTH AFTER 24 HOURS 12/26/24 06:45 Blood Blood Culture - Preliminary NO GROWTH AFTER 24 HOURS 12/26/24 07:06 Urine,Catheterized Urine Culture - Preliminary Constitutional Constitutional: no acute distress, average body habitus, chronically ill appearing, disheveled, cooperative and agitated *Routine HEENT Exam Head: Present normocephalic Eye: Present EOMI ENT: Present mucous membranes moist Comments: poor dentition *Routine Neck Exam Neck: Present supple; Absent lymphadenopathy *Routine Respiratory Exam Respiratory: Present CTA bilaterally and rhonchi; Absent wheezes or crackles *Routine Cardiovascular Exam Cardiovascular: Present RRR *Routine Abdominal Exam Abdominal: Present soft and normoactive bowel sounds; Absent tenderness Comments: Negative Sandy sign *Routine Rectal Exam Patient deferred: visual exam *Routine Exam Patient deferred: external exam *Routine Extremities Exam Extremities: Absent cyanosis, clubbing or edema *Routine Skin Exam Skin: Present intact and warm; Absent rash *Routine Neurological Exam Neurological: Present alert, altered mental status and moving all extremities Comments: Nonverbal, does not follow commands. Does not appear to have painful response with deep palpation of right upper quadrant. Did find blood draws painful. In no acute distress at this time; exhibiting self stimulating behavior Results Data Completed and Pending Labs on day of discharge: Labs from last 24 hours 12/27/24 12/26/24 06:00 07:06 WBC 9.7 D RBC 3.90 L Hgb 11.0 L D Hct 33.4 L MCV 85.6 MCH 28.2 MCHC 32.9 RDW 14.5 Plt Count 168 MPV 10.7 H Neut % (Auto) 61.0 Lymph % (Auto) 29.3 [place] % (Auto) 6.8 Eos % (Auto) 2.3 Baso % (Auto) 0.3 Neut # (Auto) 5.9 Lymph # (Auto) 2.9 [place] # (Auto) 0.7 Eos # (Auto) 0.2 Baso # (Auto) 0.0 Sodium 139 Potassium 3.3 L Chloride 110 H Carbon Dioxide 27 Anion Gap 5.3 BUN 13 Creatinine 0.60 Estimated Creat Clear 102 Estimated GFR 103 Est GFR ( Amer) 125 D Glucose 93 D Calcium 8.6 Magnesium 2.1 Total Bilirubin 0.4 AST 24 D ALT 13 Alkaline Phosphatase 83 Total Protein 6.3 Albumin 3.6 D Globulin 2.7 Albumin/Globulin Ratio 1.3 Ur C. trach DNA (PCR) Negative U N.gonorrhoeae DNA PCR Negative T. vaginalis (PCR) Negative Preliminary micro results at discharge 12/26/24 07:43 Blood Culture - Preliminary Blood NO GROWTH AFTER 24 HOURS 12/26/24 06:45 Blood Culture - Preliminary Blood NO GROWTH AFTER 24 HOURS 12/26/24 07:06 Urine Culture - Preliminary Urine,Catheterized DS: Diagnosis Discharge Diagnosis (1) Pneumonia: Status: Acute Code(s): J18.9 - Pneumonia, unspecified organism (2) Nausea & vomiting: Status: Acute Code(s): R11.2 - Nausea with vomiting, unspecified (3) Sepsis: Status: Acute Code(s): A41.9 - Sepsis, unspecified organism (4) Urinary tract infection: Status: Acute Code(s): N39.0 - Urinary tract infection, site not specified (5) Aspiration pneumonia of both lower lobes: Status: Acute Code(s): J69.0 - Pneumonitis due to inhalation of food and vomit (6) Fracture of right toe with delayed healing: Status: Acute Code(s): S92.911G - Unspecified fracture of right toe(s), subsequent encounter for fracture with delayed healing (7) Candidal intertrigo: Status: Acute Code(s): B37.2 - Candidiasis of skin and nail (8) Chronic static encephalopathy: Status: Chronic Code(s): G93.49 - Other encephalopathy (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 Meds Home Medications and Allergies Home Medications ?Medication ?Instructions ?Recorded ?Confirmed ?Type hydroxyzine HCl 50 mg tablet 50 mg PO BID 90 days #180 tabs 09/28/24 12/26/24 Rx Hospital Bed (DME) #1 ea 10/15/24 12/26/24 Rx food supplemt, lactose-reduced 1 ea PO BID #2,844 mL 10/29/24 12/26/24 Rx (Ensure High Protein oral liquid) sertraline 100 mg tablet 200 mg (2 x 100 mg) PO DAILY #180 11/02/24 12/26/24 Rx tabs clonazepam 2 mg tablet 4 mg (2 x 2 mg) PO BID #120 tabs 11/24/24 12/26/24 Rx fluticasone propionate 50 1 spray intranasal DAILY 30 days 11/24/24 12/26/24 Rx mcg/actuation nasal #16 grams spray,suspension pantoprazole 40 mg tablet,delayed 40 mg PO DAILY #30 tabs 12/17/24 12/26/24 Rx release cetirizine 10 mg tablet (Zyrtec) 10 mg PO DAILY 12/26/24 12/26/24 History trazodone 50 mg tablet 100 mg PO HS 12/26/24 12/26/24 History valacyclovir 1 gram tablet 1,000 mg PO DAILY 12/26/24 12/26/24 History levofloxacin 750 mg tablet 750 mg PO 1100 5 days #5 tabs 12/27/24 Rx nitrofurantoin 100 mg PO HS #30 caps 12/27/24 Rx monohydrate/macrocrystals 100 mg capsule (Macrobid) New Prescriptions to Start Prescriptions: levofloxacin Bismark Crawford nitrofurantoin monohyd/m-cryst [Macrobid] Bismark Crawford Allergies Allergy/AdvReac Type Severity Reaction Status Date / Time aspirin AdvReac Adan's Verified 11/23/24 12:59 syndrome Discharge Plan Disposition Patient Disposition: Home, Self-Care Condition: Fair Follow up Plan Follow up with: Walt Howell MD [Primary Care Provider, Internal Medicine] - Enter time for follow up Prescriptions/Medication Reconciliation: New levofloxacin 750 mg Tablet 750 mg PO 1100 5 Days Qty: 5 0RF Rx Instructions: first dose 12/28/24 nitrofurantoin monohyd/m-cryst [Macrobid] 100 mg capsule 100 mg PO HS Qty: 30 0RF Rx Instructions: prophylactic for recurrent UTI Continued hydroxyzine HCl 50 mg tablet 50 mg PO BID 90 Days Qty: 180 0RF (DME) Hospital Bed (DME) Misc See Rx Instructions .Route Qty: 1 0RF Rx Instructions: As directed Ensure High Protein Liquid 1 ea PO BID Qty: 2844 5RF sertraline 100 mg tablet 200 mg PO DAILY Qty: 180 0RF fluticasone propionate 50 mcg/actuation spray,suspension 1 spray intranasal DAILY 30 Days Qty: 16 2RF Patient Comments: USE 2 PUFFS IN EACH NOSTRIL EVERY DAY clonazepam 2 mg tablet 4 mg PO BID Qty: 120 2RF pantoprazole 40 mg tablet,delayed release (DR/EC) 40 mg PO DAILY Qty: 30 5RF valacyclovir 1 gram tablet 1,000 mg PO DAILY trazodone 50 mg tablet 100 mg PO HS cetirizine [Zyrtec] 10 mg tablet 10 mg PO DAILY Problem Reconciliation Problems Reviewed?: Yes Patient Discharge Instructions ACTIVITY: Continue current activity DIET: continue same diet Patient Instructions: DI for Aspiration Pneumonia, DI for Urinary Tract Infection (UTI), DI for Sepsis -- Adult, Stop Light Pneumonia Print Language: Wolof Providers Primary Care Provider: Walt Howell Admit Provider: Bismark Crawford Attending Provider: Bismark Crawford
[2024-12-27 10:27] LABS: Acinetobacter calcoaceticus-ba Not Detected; Bacteroides fragilis Not Detected; Candida auris Not Detected; Candida glabrata Not Detected; Enterobacterales Not Detected; Enterococcus faecalis Not Detected; Enterococcus faecium Not Detected; Klebsiella aerogenes Not Detected; Klebsiella pneumoniae grp Not Detected; Proteus spp. Not Detected; Salmonella spp. Not Detected; Serratia marcescens Not Detected; Staphylococcus epidermidis Not Detected; Staphylococcus lugdunensis Not Detected; Staphylococcus spp. Detected; Stenotrophomonas maltophilia Not Detected; Streptococcus agalactiae(GrpB) Not Detected; Streptococcus pyogenes Group A Not Detected; Streptococcus spp. Not Detected
--- NOTE | 2024-12-27 10:29 | PC.NURSE ---
lab notified this RN about positive blood cultures. this RN notified MD at 1029, no new orders at this time.
[2024-12-27] MEDS: POTASSIUM CHLORIDE 20MEQ TAB 40 MEQ PO (10:51)
--- NOTE | 2024-12-28 09:20 | PC.NURSE ---
pts prelim urine culture results forwarded to the hospitalist as the pt was admitted.
--- NOTE | 2024-12-28 10:09 | SW/DCPLANNER ---
Spoke with patient's sister on the phone. Patient's sister stated that she is doing well. Patient's sister stated that patient is aware of her upcoming appointment. Patient's sister stated that she was able to get her new medicine picked up from [facility]. Patient's sister stated that she has no concerns or questions at this time. Everardo Milligan
[2024-12-29 22:20] LABS: Acinetobacter calcoaceticus-ba Not Detected; Bacteroides fragilis Not Detected; Candida auris Not Detected; Candida glabrata Not Detected; Enterobacterales Not Detected; Enterococcus faecalis Not Detected; Enterococcus faecium Not Detected; Klebsiella aerogenes Not Detected; Klebsiella pneumoniae grp Not Detected; Proteus spp. Not Detected; Salmonella spp. Not Detected; Serratia marcescens Not Detected; Staphylococcus epidermidis Not Detected; Staphylococcus lugdunensis Not Detected; Staphylococcus spp. Not Detected; Stenotrophomonas maltophilia Not Detected; Streptococcus agalactiae(GrpB) Not Detected; Streptococcus pyogenes Group A Not Detected; Streptococcus spp. Not Detected
--- NOTE | 2025-01-06 17:49 | PC.NURSE ---
pts culture results forwarded to the hospitalist as she was admitted.
== END 2024-12-27 12:13 | disposition home or self-care (01) ==
LOC: ER 09:36 → 2ND 09:52
PROVIDERS: Emergency Medicine; Admitting Provider Internal Medicine Adolescent Medicine; Emergency Provider Student in an Organized Health Care Education/Training Program; PCP Family Medicine; Visit Provider Internal Medicine Adolescent Medicine
DX: A41.9 Sepsis, unspecified organism (principal); J18.9 Pneumonia, unspecified organism; N39.0 Urinary tract infection, site not specified; J69.0 Pneumonitis due to inhalation of food and vomit; S92.911G Unspecified fracture of right toe(s), subsequent encounter for fracture with delayed healing; B96.20 Unspecified Escherichia coli [E. coli] as the cause of diseases classified elsewhere; R11.2 Nausea with vomiting, unspecified; B37.2 Candidiasis of skin and nail; G93.49 Other encephalopathy; R91.8 Other nonspecific abnormal finding of lung field; I31.39 Other pericardial effusion (noninflammatory); F84.0 Autistic disorder; M19.071 Primary osteoarthritis, right ankle and foot; Z79.899 Other long term (current) drug therapy; Z86.69 Personal history of other diseases of the nervous system and sense organs; Z88.8 Allergy status to other drugs, medicaments and biological substances
CPT/HCPCS: 0223U; 36415; 70450; 71275; 73630; 74174; 80053; 81001; 82803; 83605; 83690; 83735; 84484; 85025; 85610; 87040; 87077; 87086; 87088; 87154; 87186; 87491; 87591; 87661; 93005; 96361; 96365; 96367; 99285; G0378; J0131; J0456; J0696; J1650; J7050; J7120; Q9967

== ENCOUNTER 2025-01-12 08:37 | Emergency (ER) | payer MEDICARE, SELFPAY ==
[2025-01-12] VITALS (15 sets, daily range): BP systolic 108–141; BP diastolic 36–106; PULSE 62–99; RESP 16–19; TEMP 36.6; O2SAT 93–99; BMI 25.6
--- OUTSIDE RECORDS SUMMARY | 2025-01-12 08:49 | XMS_ITS | Clinical Summary ---
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 (SNOMED CT) 09/01 Inactive 09/01 Amanda Nordan Adan's syndrome LEUKOCYTOSIS UNSPECIFIED D72.829 (ICD-10-CM ) 09/22 Resolved 09/22 Amanda Nordan Elevated white blood cell count, unspecified DIARRHEA 91887530 (SNOMED CT) 09/22 Inactive 09/22 Amanda Nordan Diarrhea OBESITY 969811804 (SNOMED CT) 10/14 Removed 10/14 Sangeeta Bismark Obesity CLOSTRIDIUM DIFFICILE COLITIS 253671254 (SNOMED CT) 10/14 Active 10/14 Sangeeta Bismark Clostridium difficile colitis PNEUMONIA 977741856 (SNOMED CT) 09/01 Active 09/01 Amanda Nordan Pneumonia LEUKOCYTOSIS UNSPECIFIED D72.829 (ICD-10-CM ) 09/22 Removed 09/22 Amanda Nordan Elevated white blood cell count, unspecified BILAT PNEUMONIA J18.9 (ICD-10-CM ) 09/01 Refinement 09/01 Eryn Mendez Pneumonia, unspecified organism CLOSTRIDIUM DIFFICILE A04.7 (ICD-10-CM ) 09/01 Inactive 09/01 Eryn Mendez Enterocolitis due to Clostridium difficile DIARRHEA 20828051 (SNOMED CT) 09/22 Removed 09/22 Eryn Mendez Diarrhea MENTAL RETARDATION 19749632 (SNOMED CT) 09/01 Removed 09/01 Amanda Rosales Mental retardation BILAT PNEUMONIA J18.9 (ICD-10-CM ) 09/01 Removed 09/01 Amanda Rosales Pneumonia, unspecified organism CLOSTRIDIUM DIFFICILE A04.7 (ICD-10-CM ) 09/01 Removed 09/01 Amanda Rosales 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 34875435 (SNOMED CT) 09/01 Removed 09/01 Amanda Rosales Adan's syndrome Medications Medication Instructions Start Date Stop Date Generic Name NDC Provider MACRODANTIN 100 MG CAPS Take one (1) tablet by mouth three times a day NITROFURANTOIN MACROCRYSTAL 97236486144 Jose Abbott MD DIFICID 200 MG TABS Take one (1) tablet by mouth twice a day FIDAXOMICIN 99825747581 Sangeeta Sofia VANCOCIN HCL 250 MG ORAL CAPSULE one pill twice a day for 2 weeks then one MWF for 6 weeks VANCOMYCIN HCL 85818183608 Sangeeta Sofia FLUCONAZOLE 200 MG TABS FLUCONAZOLE 71962267608 Sangeeta Sofia DIFICID 200 MG TABS Take one (1) tablet by mouth twice a day FIDAXOMICIN 07002199048 Jose Abbott MD DOXYCYCLINE HYCLATE 100 MG CAPS DOXYCYCLINE HYCLATE 96173299258 Jose Abbott MD LAITH-Q ORAL CAPSULE PROBIOTIC PRODUCT 22911567316 Jose Abbott MD ASTELIN 137 MCG/SPRAY NASAL SOLUTION AZELASTINE HCL 77750685291 Jose Abbott MD LORATADINE TABS LORATADINE TABS 34757781624 Jose Abbott MD VANCOCIN HCL 250 MG ORAL CAPSULE one pill twice a day for 2 weeks then one MWF for 6 weeks VANCOMYCIN HCL 51360070810 Jose Abbott MD DOXYCYCLINE HYCLATE 100 MG CAPS DOXYCYCLINE HYCLATE 48170463333 Anetra D Coley VITAMIN E 400 UNIT CAPS VITAMIN E 47626346842 Anetra D Coley TRAZODONE HCL TABS TRAZODONE HCL TABS 51245328478 Anetra D Coley SERTRALINE HCL TABLET SERTRALINE HCL TABS 19115273803 Anetra D Coley SEROQUEL 200 MG TABS QUETIAPINE FUMARATE 02594252809 Anetra D Coley SINGULAIR 10 MG TABS MONTELUKAST SODIUM 82606793523 Anetra D Coley ALLERGY RELIEF 10 MG TABS LORATADINE 62017617505 Anetra D Coley LAITH-Q ORAL CAPSULE PROBIOTIC PRODUCT 95790936416 Anetra D Coley FLONASE 50 MCG/ACT NASAL SUSPENSION FLUTICASONE PROPIONATE 94816936446 Anetra D Coley FLUCONAZOLE 200 MG TABS FLUCONAZOLE 15046658165 Anetra D Coley CLONAZEPAM 1 MG TABS CLONAZEPAM 48114596655 Anetra D Coley PULMICORT 0.5 MG/2ML SUSP BUDESONIDE 78540165080 Anetra D Coley ASTELIN 137 MCG/SPRAY NASAL SOLUTION AZELASTINE HCL 54711204854 Anetra D Coley LIPITOR 20 MG TABS ATORVASTATIN CALCIUM 03574603862 Anetra D Coley EQL VITAMIN C 500 MG TABS ASCORBIC ACID 90692325469 Anetra D Coley ALBUTEROL SULFATE NEBU ALBUTEROL SULFATE NEBU 05720828918 Anetra D Coley Medications Administered No information [...] Procedures Code Procedure Name Date Entry Date CPT-89687 CMP CPT-71289 CBC with Differential 10/14 CPT-73388 X-Ray, Chest, PA & Lateral 2 CPT-69435 X-Ray, KUB CPT-adilia New Oral Antibiotic CPT-50828 CBC with Differential 16 CPT-80553 CMP CPT-77124 Sedimentation Rate (ESR) 201 07/22/15 CPT-26779 LIPASE CPT-58074 AMYLASE CPT-04635 X-Ray, Chest, PA & Lateral 2 Vital [...]
--- OUTSIDE RECORDS SUMMARY | 2025-01-12 08:50 | XMS_ITS | Clinical Summary ---
Author Organization Healthcare Address [address] [place] [address] Care Team Providers Care Five Roll Refiner Batch Mixer Name Role Phone Pcp, No Primary Care [...] PCV20 or PCV21) 03/25/2020 03/25/2015, 01/02/2013, 01/02/2013 [id number] Vaccine (4 - season) 2024 06/15/2021, 10/04/2020, [...] Narrative SUNQUEST - 11/15/2003 3:52 PM EDT [facility] MR #: [id number] [facility] [place] [address] 1965 (Age: 37) FW Collect Date: 11/08/2003 00:00 Receipt Date: 11/09/2003 09:59 Page 1 DEPARTMENT OF PATHOLOGY AND LABORATORY MEDICINE CYTOPATHOLOGY REPORT Email: [email or web address] ATTENDING MD/Practitioner: Scar Hawkins MD [place] [facility] [place] [facility] [place] MD(S): BELTRAN Maldonado Reported: 11/15/2003 15:52 Collected: 11/08/2003 00:00 INTERPRETATION THIN PREP (CERVICAL/VAGINAL): NEGATIVE FOR INTRAEPITHELIAL LESION OR MALIGNANCY. SATISFACTORY FOR EVALUATION; ENDOCERVICAL/ TRANSFORMATION ZONE COMPONENT PRESENT. Electronically Signed Out By LORA Moctezuma([facility]). LORA Moctezuma([facility]). Cervical cytology is a screening test [...] results is suggested (please call Microbiology at [phone] for results). CLINICAL INFORMATION: Menstrual History: {Not Provided} Date of Last Menstrual Period: {Not Provided} Contraceptive History: Depo Other Clinical Conditions: If ASCUS and > 24 years of age, HPV/DNA testing requested. SPECIMEN DESCRIPTION: A: THIN PREP (CERVICAL/VAGINAL) THIN PREP PROCESS CELLULAR ENHANCEMENT ICD: V76.2 CERVIX, SPECIAL SCREENING FOR MALIGNANT NEOPLASM F: A; RT IMAGE 14753, RT IMAGE 67347 <CR>, THIN SCRN 03573 SNOMED CODES: A; [id number] [id number] M-60012 In cases where a pathologist has signed out the report, the service has been rendered in part by a resident. The signing pathologist has performed and is responsible for the reported pathologic evaluation. us Bernard Hawkins MD LAB PATHOLOGY ORDERABLES Final Result SUNQUEST from Last 3 Months or Most Recently Relevant to Health Maintenance [place] [employer] [employer] Care Teams Five Roll Refiner Batch Mixer Relationship Specialty Start Date End Date Pcp, Annalee [address] [place] [address] PCP - General Family Medicine 10/04/22
--- NOTE | 2025-01-12 09:15 | CT_ITS ---
FINAL REPORT TECHNIQUE: Thin section axial images were obtained from skull base to vertex without contrast. Coronal reconstruction images were obtained from the axial data. Exam was performed using dose reduction techniques such as automated exposure control, adjustment of the mA and kV according to patient size, and use of iterative reconstruction technique. CLINICAL HISTORY: Multiple falls COMPARISON: 04/26/2023 FINDINGS: There is no mass effect or midline shift. There is no hydrocephalus. There is no intracranial hemorrhage. The posterior fossa is without acute abnormality. The basilar cisterns are preserved. The soft tissues are without acute abnormality. No acute osseous abnormality is identified. IMPRESSION: No acute intracranial abnormality. Reviewed, Interpreted and Dictated by Natividad Boston MD Transcribed by Naya Vazquez Authenticated and [facility]
--- NOTE | 2025-01-12 09:15 | CT_ITS ---
FINAL REPORT TECHNIQUE: Axial imaging of the chest is obtained after the administration of contrast. 3-D MIP reformatted images were also obtained and reviewed per PE protocol. This study was performed with techniques to keep radiation doses as low as reasonably achievable, (ALARA). Individualized dose reduction techniques using automated exposure control or adjustment of mA and/or kV according to the patient's size were employed. CLINICAL HISTORY: Cough, tachycardia, shortness of breath COMPARISON: 07/09/2024 and report dated 12/26/2024 FINDINGS: The pulmonary arteries are well filled. There is no evidence of pulmonary embolus. There is no aortic dissection. Heart size is borderline in size. There is no mediastinal, hilar, or axillary lymphadenopathy. There has been interval improvement in the patchy ground glass opacities in the lower lobes. There continues to be right greater than left lower lobe atelectasis. There is no pleural or pericardial effusion. Limited images of the upper abdomen reveals a large hiatal hernia. No acute osseous abnormality. IMPRESSION: No evidence of pulmonary embolism or aortic dissection. Interval and proved meant in the patchy ground glass opacities. Reviewed, Interpreted and Dictated by Natividad Boston MD Transcribed by Meghan Watkins Authenticated and [facility]
--- NOTE | 2025-01-12 09:41 | HMH.ITSTN ---
went to get patient for ct , pt didnt have an iv , nurses are aware and will call when patient is ready
--- NOTE | 2025-01-12 09:43 | ECG_ITS ---
APPROVED REPORT Exam: Resting ECG HR:102 bpm ECG Measurements Heart Rate 102 AXES NC 134 P 72 QRSd 82 QRS 71 QT 348 T 73 QTc [address] DEPRESSION, CONSIDER SUBENDOCARDIAL INJURY [0.1+ mV ST DEPRESSION] ABNORMAL ECG UNCONFIRMED REPORT Sinus tachycardia. No ST elevation or depression. QTc 407 Electronically signed by : TOBIN AHUJA, 01/12/2025 16:12:20
--- NOTE | 2025-01-12 09:43 | HMH.EDGENADL ---
Discharge Plan Disposition Patient Disposition: Home, Self-Care Prescriptions Prescriptions: New benzonatate 100 mg capsule 100 mg PO TID PRN (Reason: cough) Qty: 15 0RF No Action (DME) Hospital Bed (DME) Misc See Rx Instructions .Route Qty: 1 0RF Rx Instructions: As directed Ensure High Protein Liquid 1 ea PO BID Qty: 2844 5RF sertraline 100 mg tablet 200 mg PO DAILY Qty: 180 0RF fluticasone propionate 50 mcg/actuation spray,suspension 1 spray intranasal DAILY 30 Days Qty: 16 2RF Patient Comments: USE 2 PUFFS IN EACH NOSTRIL EVERY DAY pantoprazole 40 mg tablet,delayed release (DR/EC) 40 mg PO DAILY Qty: 30 5RF clonazepam 2 mg tablet 4 mg PO BID Qty: 120 2RF trazodone 50 mg tablet 100 mg PO HS hydroxyzine HCl 50 mg tablet 50 mg PO Q6H 30 Days Qty: 120 0RF valacyclovir 1 gram tablet 1,000 mg PO DAILY cetirizine [Zyrtec] 10 mg tablet 10 mg PO DAILY nitrofurantoin monohyd/m-cryst [Macrobid] 100 mg capsule 100 mg PO HS Qty: 30 0RF Rx Instructions: prophylactic for recurrent UTI Referrals Follow up/Referrals: Walt Howell MD [Primary Care Provider, Internal Medicine] - See instructions Activity Restrictions/Add. Instructions Additional Instructions/Restrictions: We will call you for the results of her viral panel. Her pneumonia seems to be improving. Continue her medications as prescribed. If she develops any new or worsening symptoms, or if you become concerned for her health for any reason, return to the emergency department for evaluation. Clinical Impressions Clinical Impression: Cough, Congested nose Instructions Patient Instructions: Cough Print Language Print Language: Occitan Discharge ED Provider: Syed Cortes Adult HPI General Chief complaint: Cough Stated complaint: congested/SOA/cough Time Seen by Provider: 01/12/25 08:49 Mode of Arrival: Wheelchair Description of Symptoms (Recalled from ER Triage Doc. by RN): Patient presents to ED from home with caregiver who reports patient has a cough and chest congestion that started last night. Notes she was recently admitted for pneumonia and they stopped giving her her ABX at home because it made her laugh loudly constantly and they were worried she would get choked when eating. 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 Patient was admitted to the hospital on 26 December for aspiration pneumonia and completed course of antibiotics. Patient's medical services assistant states that since she has been home, she has not been doing well and 2 days afterwards developed cough. Today, she seemed more fatigued and did not want to get up this morning, which is unusual for her. They do note that she is continue to have feeding difficulties because of her stemming. I state that she has also had somewhat of a cough. Her medical services assistant also states that she herself has had symptoms of fatigue, nasal congestion and shortness of breath. They do state the patient has been falling recently and has hit her head a couple times. They state that she did not want to get up and walk today. Related Data Home Medications ?Medication ?Instructions ?Recorded ?Confirmed cetirizine 10 mg tablet (Zyrtec) 10 mg PO DAILY 12/26/24 01/04/25 valacyclovir 1 gram tablet 1,000 mg PO DAILY 12/26/24 01/04/25 trazodone 50 mg tablet 100 mg PO HS 01/01/25 01/04/25 Previous Rx's ?Medication ?Instructions ?Recorded Hospital Bed (DME) #1 ea 10/15/24 food supplemt, lactose-reduced 1 ea PO BID #2,844 mL 10/29/24 (Ensure High Protein oral liquid) sertraline 100 mg tablet 200 mg (2 x 100 mg) PO DAILY #180 11/02/24 tabs fluticasone propionate 50 1 spray intranasal DAILY 30 days 11/24/24 mcg/actuation nasal #16 grams spray,suspension pantoprazole 40 mg tablet,delayed 40 mg PO DAILY #30 tabs 12/17/24 release nitrofurantoin 100 mg PO HS #30 caps 12/27/24 monohydrate/macrocrystals 100 mg capsule (Macrobid) clonazepam 2 mg tablet 4 mg (2 x 2 mg) PO BID #120 tabs 12/30/24 hydroxyzine HCl 50 mg tablet 50 mg PO Q6H 30 days #120 tabs 01/04/25 benzonatate 100 mg capsule 100 mg PO TID PRN cough #15 caps 01/12/25 Allergies Allergy/AdvReac Type Severity Reaction Status Date / Time aspirin AdvReac Adan's Verified 01/04/25 12:47 syndrome PFSH PFS Disclaimer: The information contained in this section may have been updated after the patient was seen, as this information can be updated by other users. Medical History UTI (urinary tract infection) COVID-19 Gallstones Dislocation of humerus, inferior, closed Late effect of Adan's syndrome Aspiration of food Chronic static encephalopathy Autism Surgical History History of laparoscopic cholecystectomy H/O esophagogastroduodenoscopy History of dental surgery Family History Father Diabetes Heart attack Kidney disease Stroke Mother Diabetes Grandmother Diabetes Grandfather Diabetes Social History Smoking Status: Never smoker alcohol intake: never substance use type: denies use current occupational status: disabled Travel in the last 8 weeks?: None household members: other details: sister housing: house Have you lived/traveled outside [place] in past 30 days?: No Contact w/someone who lives/traveled outside [place] past 30 days?: No Exposure to someone with infectious disease in past 14 days?: No Do you have a fever (greater than 100.4 F or 38 C)?: No Have you tested positive for COVID-19?: No Exposed to someone with COVID-19 in past 14 days?: No Do you have a sore throat?: No Do you have a cough?: No Do you have any weakness?: No Do you have any diarrhea?: No Are you experiencing any unusual bleeding?: No Do you have any muscle aches/pain?: No Do you have any abdominal pain?: No Are you experiencing loss of taste or smell?: No Other Medical History Have you received the Flu Vaccine for this season: No Have you received the Pneumonia Vaccine: No ROS Obtained: Yes Systems reviewed as appropriate & no additional complaints except as documented Physical Exam General General appearance: alert and in no apparent distress Comment: Sleeping, cognitive delay Head Head exam: atraumatic Eye Eye exam: Present normal appearance, PERRL and EOMI ENT ENT exam: Present normal external ear exam Neck Neck exam: Present full ROM Chest Chest inspection: Present symmetric chest wall rise Respiratory Respiratory exam: Present normal lung sounds bilaterally; Absent respiratory distress, wheezes or stridor Cardiovascular Cardiovascular exam: Present regular rate and normal rhythm Abdominal Exam Abdominal exam: Present soft; Absent tenderness or guarding Extremities Exam Extremities exam: Present normal inspection Back Exam Back exam: Present normal inspection Neurological Exam Neurological exam: Present alert and other (Unable to answer questions, which is her baseline according to medical services assistant) Psychiatric Psychiatric exam: Present normal affect Skin Skin exam: Present warm and dry Medical Decision Making Medical Records Screening: Per USPSTF and CDC recommendations, given the prevalence of disease in our region, it is our hospital?s policy to screen for HIV and viral Hepatitis for all patients aged 18 and over and those with ongoing risk factors. Damien Inquiry Pt receiving controlled substance: No Vital Signs: 01/12/25 08:50 01/12/25 09:00 01/12/25 09:31 Temperature 97.8 F Temperature Source Temporal Artery Scan Pulse Rate 98 H 97 H Pulse Rate [Left] 99 H Respiratory Rate 19 19 Blood Pressure 141/91 H 108/76 L Blood Pressure [Right Arm] 121/106 H Blood Pressure Mean 101 Blood Pressure Mean [Right Arm] 111 Blood Pressure Source [Right Arm] Automatic Cuff Blood Pressure Position [Right Arm] Supine 02 Sat by Pulse Oximetry 93 L 95 99 Oxygen Delivery Method Room Air Room Air 01/12/25 09:45 01/12/25 10:17 01/12/25 10:46 Temperature Temperature Source Pulse Rate 93 H 62 99 H Pulse Rate [Left] Respiratory Rate Blood Pressure 126/77 108/75 L 116/36 L Blood Pressure [Right Arm] Blood Pressure Mean 93 86 Blood Pressure Mean [Right Arm] Blood Pressure Source [Right Arm] Blood Pressure Position [Right Arm] 02 Sat by Pulse Oximetry 94 L 95 Oxygen Delivery Method 01/12/25 11:00 01/12/25 11:15 01/12/25 11:30 Temperature Temperature Source Pulse Rate 89 87 90 Pulse Rate [Left] Respiratory Rate Blood Pressure 118/88 116/77 110/70 Blood Pressure [Right Arm] Blood Pressure Mean Blood Pressure Mean [Right Arm] Blood Pressure Source [Right Arm] Blood Pressure Position [Right Arm] 02 Sat by Pulse Oximetry 95 95 93 L Oxygen Delivery Method 01/12/25 11:45 01/12/25 12:00 01/12/25 12:15 Temperature Temperature Source Pulse Rate 92 H 85 93 H Pulse Rate [Left] Respiratory Rate Blood Pressure 110/76 114/74 119/71 Blood Pressure [Right Arm] Blood Pressure Mean 86 92 96 Blood Pressure Mean [Right Arm] Blood Pressure Source [Right Arm] Blood Pressure Position [Right Arm] 02 Sat by Pulse Oximetry 94 L 95 95 Oxygen Delivery Method 01/12/25 12:30 01/12/25 12:45 Temperature Temperature Source Pulse Rate 78 80 Pulse Rate [Left] Respiratory Rate Blood Pressure 111/80 130/80 Blood Pressure [Right Arm] Blood Pressure Mean 93 91 Blood Pressure Mean [Right Arm] Blood Pressure Source [Right Arm] Blood Pressure Position [Right Arm] 02 Sat by Pulse Oximetry 96 96 Oxygen Delivery Method Lab Data Lab Results 01/12/25 09:58: WBC 8.6, RBC 4.26, Hgb 12.3, Hct 37.4, MCV 87.8, MCH 28.9, MCHC 32.9, RDW 15.4, Plt Count 183, MPV 11.0 H, Neut % (Auto) 74.1, Lymph % (Auto) 15.8, [place] % (Auto) 9.0, Eos % (Auto) 0.7, Baso % (Auto) 0.3, Neut # (Auto) 6.4, Lymph # (Auto) 1.4, [place] # (Auto) 0.8, Eos # (Auto) 0.1, Baso # (Auto) 0.0, Sodium 142, Potassium 4.5, Chloride 107, Carbon Dioxide 26, Anion Gap 13.5, BUN 12, Creatinine 0.80, Estimated Creat Clear 78, Estimated GFR 74, Est GFR ( Amer) 89, Glucose 107 H, Calcium 9.2, Total Bilirubin 0.5, AST 25, ALT 11 L, Alkaline Phosphatase 81, Troponin I < 0.01, C-Reactive Protein 89.8 H, NT-Pro-B Natriuret Pep 271 H, Total Protein 7.6, Albumin 4.4, Globulin 3.2, Albumin/Globulin Ratio 1.4, TSH 1.28, Free T4 1.27 01/12/25 10:49: Urine Color Yellow, Urine Appearance Clear, Urine pH 7.0, Ur Specific [place] 1.015, Urine Protein Negative, Urine Glucose (UA) Negative, Urine Ketones 1+, Urine Blood Negative, Urine Nitrate Negative, Urine Bilirubin 1+ A, Urine Urobilinogen 0.2, Ur Leukocyte Esterase Negative, Urine RBC None, Urine WBC 3-5, Ur Squamous Epith Cells Occasional, Urine Bacteria Trace, Urine Mucus 1+ 01/12/25 09:58 01/12/25 09:58 Orders (Tests/Meds): ED MEDICATIONS Discontinued Medications Generic Name Dose Route Start Last Admin Trade Name Isha PRN Reason Stop Dose Admin Lactated Ringer's 1,000 mls @ 999 mls/hr 01/12/25 09:17 01/12/25 11:15 Lactated Ringer's 1000 Ml Bag IV 01/12/25 10:17 Infused .Q1H1M ONE Infusion Iopamidol 80 ml 01/12/25 10:33 01/12/25 10:41 Iopamidol-370 (76%);100ml Bottle IV 01/12/25 10:34 80 ml ONCE ONE Administration Sodium Chloride 50 ml 01/12/25 10:33 01/12/25 10:41 0.9 % Sodium Chloride 50 Ml Vial IV 01/12/25 10:34 50 ml ONCE ONE Administration Sodium Chloride 10 ml 01/12/25 10:33 01/12/25 10:41 Sodium Chloride 0.9% 10ml Syr (Rad Only) IV 01/12/25 10:34 10 ml ONCE ONE Administration ORDERS Category Date Time Status CT angio chest PE protocol Stat Cat Scan 01/12/25 09:[address] head/brain wo con Stat Cat Scan 01/12/25 09:15 Completed BNP [NT Pro Brain Natriuretic Pep.] Stat Lab 01/12/25 09:58 Results CBC w/Auto Diff [Complete Blood Count Auto Diff] Stat Lab 01/12/25 09:58 Completed CMP [Comprehensive Metabolic Panel] Stat Lab 01/12/25 09:58 Results CRP [C-Reactive Protein] Stat Lab 01/12/25 09:58 Results Free T4 (Free Thyroxine) Stat Lab 01/12/25 09:58 Completed Full Resp Panel w/COVID ([facility]) Routine Lab 01/12/25 09:25 Received Procalcitonin Stat Lab 01/12/25 09:58 Results TSH [Thyroid Stimulating Hormone] Stat Lab 01/12/25 09:58 Results Troponin I Q3H Lab 01/12/25 15:30 Ordered Troponin I Stat Lab 01/12/25 09:58 Results UA [Urinalysis and Microscopic] Stat Lab 01/12/25 10:49 Completed Blood Culture Stat Micro 01/12/25 10:09 Received ECG Data Tracing #1: I reviewed this ECG and interpreted as documented below: Significant artifact, however sinus tachycardia. No appreciable ST elevation or depression. 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 Patient was admitted to the hospital on 26 December for aspiration pneumonia and completed course of antibiotics. Patient's medical services assistant states that since she has been home, she has not been doing well and 2 days afterwards developed cough. Today, she seemed more fatigued and did not want to get up this morning, which is unusual for her. They do note that she is continue to have feeding difficulties because of her stemming. I state that she has also had somewhat of a cough. Her medical services assistant also states that she herself has had symptoms of fatigue, nasal congestion and shortness of breath. They do state the patient has been falling recently and has hit her head a couple times. They state that she did not want to get up and walk today. On arrival, patient's blood pressure is 121/106, heart rate 89 bpm, maintaining appropriate oxygen saturation on room air. Afebrile. Physical exam, as stated above, revealed nontoxic appearing female in no distress. She is sleeping but will wake and interact with family. Pupils equal round reactive to light. No focal neurological deficits. Cardiopulmonary exam is unremarkable. Differential diagnosis includes, but is not limited to: Sepsis, pneumonia, urinary tract infection, pulmonary embolism, intracranial hemorrhage, metabolic encephalopathy, ACS, metabolic derangement, viral respiratory illness, among others. The most morbid conditions were considered and workup was based on these. Workup in the emergency department included: Blood culture x 2, 1 L LR, troponin, full respiratory panel, urinalysis, TSH, procalcitonin, BNP, free T4, CMP, CRP, CTA pulmonary embolism, CT head without contrast, EKG EKG without evidence of ischemia. See interpretation above Laboratory studies interpreted by me personally. No leukocytosis, no anemia. Electrolytes within normal limits. No LORA. Glucose normal at 107. Initial troponin less than 0.01. CRP is elevated at 89.8. BNP is very mildly elevated at 271. Free T4 normal at 1.27. TSH normal at 1.28. Urinalysis without evidence of infection. 1+ bilirubin in urine. CT imaging was interpreted by me personally. No evidence of pulmonary embolism. Patient does have groundglass opacities in the base of the right lung could represent aspiration pneumonitis versus pneumonia, however does appear to be improving from previous. No intracranial hemorrhage, mass or midline shift. See radiology report for details Viral respiratory panel still pending and will likely take another 3 to 4 hours to result. Patient is alert and interactive at this time. Given she does not appear septic with an improving pneumonia and has had significant adverse reactions to antibiotics in the past, which the sister describes as her stemming uncontrollably and not sleeping, causing her significant distress, is felt that no additional antibiotics are indicated at this time. Explained that we will follow-up the results of the respiratory panel and call patient for any abnormal results. Return precautions were given. All questions were answered. Sister demonstrated understanding and was in agreement this plan. Will prescribe Tessalon Perles for cough. Critical Care Critical Care Time Critical Care Time: No
[2025-01-12] MEDS: LACTATED RINGERS 1000ML 1,000 ML 999 ML IV (10:04)
[2025-01-12 10:09] LABS: Hematocrit 37.4 % (37.0-47.0); Hemoglobin 12.3 g/dL (12.2-16.2); Immature Granulocytes % 0.1 %; Mean Corpuscular HGB Conc 32.9 g/dL (31.8-35.4); Mean Corpuscular Hemoglobin 28.9 pg (27.0-31.2); Mean Corpuscular Volume 87.8 fl (81-99); Nucleated Red Blood Cells % 0 %; Platelet Count 183 K/mm3 (142-424); Red Blood Count 4.26 M/mm3 (4.20-5.40); Red Cell Distribution Width-SD 48.6 fL; White Blood Count 8.6 K/mm3 (4.8-10.8)
[2025-01-12 10:17] LABS: Albumin Level 4.4 g/dl (3.5-5.0); Chloride 107 mmol/L (98-107); Potassium 4.5 mmoL/L (3.5-5.1); Sodium 142 mmol/L (136-145)
[2025-01-12 10:20] LABS: Alanine Aminotransferase 11 U/L (12-78); Albumin/Globulin Ratio 1.4 (1.1-1.8); Alkaline Phosphatase 81 U/L (38-126); Anion Gap 13.5 mEq/L (5-15); Aspartate Amino Transferase 25 U/L (14-36); Bilirubin,Total 0.5 mg/dl (0.2-1.3); Blood Urea Nitrogen 12 mg/dl (7-17); Calcium 9.2 mg/dl (8.4-10.2); Carbon Dioxide 26 mmol/L (22.0-30.0); Creatinine Clearance Estimated 78 mL/min (50-200); Creatinine,Serum 0.80 mg/dl (0.52-1.04); Estimated Glomerular Filt Rate 74 ml/min (>60); GFR (African American) 89 ML/MIN (>60); Globulin 3.2 g/dL (1.3-3.2); Glucose 107 mg/dl (74-100); Total Protein,Serum 7.6 g/dl (6.3-8.2)
[2025-01-12 10:25] LABS: C-Reactive Protein 89.8 mg/L (0-4)
[2025-01-12 10:32] LABS: NT Pro Brain Natriuretic Pep. 271 pg/mL (0-125)
[2025-01-12 10:40] LABS: Free T4 (Free Thyroxine) 1.27 ng/dl (0.78-2.19)
[2025-01-12] MEDS: IOPAMIDOL-370 (76%);100ML BOTTLE 80 ML IV (10:41)
[2025-01-12] MEDS: SODIUM CHLORIDE 0.9% 10ML SYR (RAD ONLY) 10 ML IV (10:41)
[2025-01-12] MEDS: 0.9 % SODIUM CHLORIDE 50 ML VIAL IV (10:41)
[2025-01-12 10:44] LABS: Troponin I < 0.01 ng/ml (0.00-0.034)
[2025-01-12 10:54] LABS: Thyroid Stimulating Hormone 1.28 uIU/mL (0.465-4.68)
[2025-01-12 10:54] LABS: Microscopic, Urine URINE MICROSCOPIC (MICROSCOPIC)
[2025-01-12 10:56] LABS: Color,Urine YELLOW (Yellow); Glucose,Urine (UA) Negative (Negative); Ketones,Urine 1+ (Negative); Leukocyte Esterase,Urine Negative (Negative); PH,Urine 7.0 (5.0-8.5); Protein,Urine Negative (Negative); Specific Gravity, Urine 1.015 (1.005-1.030); Urobilinogen,Urine 0.2 EU/dl (0.2)
[2025-01-12 11:06] LABS: Bilirubin,Urine 1+ (Negative)
[2025-01-12 11:14] LABS: Bacteria,Urine Trace /lpf; Mucus,Urine 1+ /lpf; Squamous Epithelial Cell,Urine Occasional #/hpf (0-5)
[2025-01-12 12:28] LABS: Adenovirus,PCR Not Detected (NotDetected); Chlamydophila Pneumoniae, PCR Not Detected (NotDetected); Coronavirus 19, PCR Not Detected (NotDetected); Coronovirus HKU1,PCR Not Detected (NotDetected); Influenza A, PCR Not Detected (NotDetected); Influenza AH1, 2009 Not Detected (NotDetected); Influenza AH1, PCR Not Detected (NotDetected); Influenza AH3,PCR Not Detected (NotDetected); Influenza B, PCR Not Detected (NotDetected); Mycoplasma Pneumoniae, PCR Not Detected (NotDetected); Parainfluenza 1, PCR Not Detected (NotDetected); Parainfluenza 2, PCR Not Detected (NotDetected); Parainfluenza 3, PCR Not Detected (NotDetected); Parainfluenza 4, PCR Not Detected (NotDetected)
[2025-01-12 13:27] LABS: Procalcitonin 0.102 ng/mL (0.0-2.0)
== END 2025-01-12 13:04 | disposition home or self-care (01) ==
PROVIDERS: Emergency Provider Student in an Organized Health Care Education/Training Program; PCP Family Medicine
DX: R06.02 Shortness of breath (principal); R09.81 Nasal congestion; R05.1 Acute cough; B97.19 Other enterovirus as the cause of diseases classified elsewhere
CPT/HCPCS: 0223U; 70450; 71275; 80053; 81001; 83880; 84145; 84439; 84443; 84484; 85025; 86140; 87040; 93005; 96360; 99284; 99285; J7120; Q9967

== ENCOUNTER 2025-04-03 11:04 | Emergency (ER) | payer MEDICARE, SELFPAY ==
[2025-04-03 11:06] VITALS: BP 137/81; PULSE 66; RESP 20; TEMP 37; O2SAT 96; BMI 25.4
[2025-04-03 11:20] VITALS: BP 137/81; PULSE 73; O2SAT 97
--- NOTE | 2025-04-03 11:29 | XR_ITS ---
PROCEDURE INFORMATION: Exam: XR Chest Exam date and time: 04/03/2025 11:45 AM Age: 59 years old Clinical indication: Other: Rattle of chest TECHNIQUE: Imaging protocol: Radiologic exam of the chest. Views: 1 view. COMPARISON: CT ANGIO CHEST PE PROTOCOL 01/12/2025 10:32 AM FINDINGS: Lungs: Unremarkable. No consolidation. Pleural spaces: Unremarkable. No gross pleural effusion. No pneumothorax. Heart/Mediastinum: Unremarkable. No cardiomegaly. Bones/joints: There are costochondral calcifications. IMPRESSION: No acute cardiopulmonary process.
--- NOTE | 2025-04-03 11:36 | ED_ITS ---
Discharge Plan Disposition Patient Disposition: Home, Self-Care Prescriptions Prescriptions: New azithromycin 250 mg tablet See Rx Instructions .ROUTE .COMPLEX Qty: 6 0RF Rx Instructions: For 250 mg dose pack: take 500 mg today (day 1), then 250 mg for 4 days (days 2-5) No Action (DME) Hospital Bed (DME) [facility] [place] See Rx Instructions .Route Qty: 1 0RF Rx Instructions: As directed Ensure High Protein Liquid 1 ea PO BID Qty: 2844 5RF fluticasone propionate 50 mcg/actuation spray,suspension 1 spray intranasal DAILY 30 Days Qty: 16 2RF Patient Comments: USE 2 PUFFS IN EACH NOSTRIL EVERY DAY pantoprazole 40 mg tablet,delayed release (DR/EC) 40 mg PO DAILY Qty: 30 5RF fluconazole 150 mg tablet 150 mg PO Q3D 0 Days Qty: 2 0RF sertraline 100 mg tablet See Rx Instructions .ROUTE .COMPLEX Qty: 180 0RF Dose Instruction: TAKE 2 TABLETS BY MOUTH ONCE DAILY Rx Instructions: TAKE 2 TABLETS BY MOUTH ONCE DAILY cetirizine [Zyrtec] 10 mg tablet 10 mg PO DAILY 30 Days Qty: 30 2RF hydroxyzine HCl 50 mg tablet 50 mg PO Q6H 30 Days Qty: 120 2RF trazodone 50 mg tablet 100 mg PO HS 30 Days Qty: 60 2RF clonazepam 2 mg tablet 4 mg PO BID Qty: 120 2RF valacyclovir 1 gram tablet 1,000 mg PO DAILY nitrofurantoin monohyd/m-cryst [Macrobid] 100 mg capsule 100 mg PO HS Qty: 30 0RF Rx Instructions: prophylactic for recurrent UTI benzonatate 100 mg capsule 100 mg PO TID PRN (Reason: cough) Qty: 15 0RF Referrals Follow up/Referrals: Walt Howell MD [Primary Care Provider, Internal Medicine] - See instructions Activity Restrictions/Add. Instructions Additional Instructions/Restrictions: Chest x-ray and urine studies did not show any evidence of infection. Is possible that she has bronchitis or an atypical pneumonia. I am prescribing a Z-Jordi. Encouraged her to take this as prescribed. Follow-up with her primary care doctor this upcoming week if she continues to have discharge. If she develops any new or worsening symptoms, or if you become concerned for help for any reason, return to the emergency department for evaluation Clinical Impressions Clinical Impression: Cough Print Language Print Language: Bangladeshi Discharge ED Provider: Syed Cortes General Adult HPI General Chief complaint: Weakness Stated complaint: Chest Congestion & fatigue Time Seen by Provider: 04/03/25 11:31 Mode of Arrival: Wheelchair Source of Information: Patient and Relative Description of Symptoms (Recalled from ER Triage Doc. by RN): pt sister (sofie) brought her in today to be evaulated for possible uti and pneumonia, they stated she more lethargic than normal with weak appetite, pt sister noted a rattle inher chest last night is and worrried for pneumonia as well as noted yellow/green discharge in depends and wants her checked for uti History of Present Illness HPI narrative: Mague Marti a 59y female with a history of autism, Rayes syndrome, UTI who presents to the emergency department for complaints of a week of increased cough and rattling in the chest. Sister is small electric engine technician and provides history. She states that she has had a mild nonproductive cough and rattling in her chest and is concerned she might have a pneumonia. She also notes that her urine has had increased green discharge, which is what happens in the past when she has urinary tract infections. She does not think that she has had any fevers. She said she has been a little more fatigued than normal but otherwise in her normal state of health. She has had multiple diagnoses and admissions for pneumonia and UTI in the past and wants to make sure that she does not get septic. Related Data Home Medications ?Medication ?Instructions ?Recorded ?Confirmed valacyclovir 1 gram tablet 1,000 mg PO DAILY 12/26/24 01/04/25 Previous Rx's ?Medication ?Instructions ?Recorded Hospital Bed (DME) #1 ea 10/15/24 food supplemt, lactose-reduced 1 ea PO BID #2,844 mL 0 10/29/24 (Ensure High Protein oral liquid) fluticasone propionate 50 1 spray intranasal DAILY 30 days 11/24/24 mcg/actuation nasal #16 grams spray,suspension pantoprazole 40 mg tablet,delayed 40 mg PO DAILY #30 t abs 12/17/24 release nitrofurantoin 100 mg PO HS #30 caps monohydrate/macrocrystals 100 mg capsule (Macrobid) benzonatate 100 mg capsule 100 mg PO TID PRN cough #15 caps 01/12/25 fluconazole 150 mg tablet 150 mg PO Q3D 2 doses #2 tab s 01/21/25 sertraline 100 mg tablet See Rx Instructions .Route 0 02/01/25 .COMPLEX #180 tabs cetirizine 10 mg tablet (Zyrtec) 10 mg PO DAILY 30 day s #30 tabs 02/17/25 hydroxyzine HCl 50 mg tablet 50 mg PO Q6H 30 days #120 tabs 03/01/25 trazodone 50 mg tablet 100 mg (2 x 50 mg) PO HS 30 days 03/24/25 #60 tabs clonazepam 2 mg tablet 4 mg (2 x 2 mg) PO BID #120 tabs 03/30/25 azithromycin 250 mg tablet See Rx Instructions PO .COM PLEX #6 04/03/25 tabs Allergies Allergy/AdvReac Type Severity Reaction Status Date / Time aspirin AdvReac Adan's Verified 01/04/25 12:47 syndrome PFSH PFSH Disclaimer: The information contained in this section may have been updated after the patient was seen, as this information can be updated by other users. Medical History UTI (urinary tract infection) COVID-19 Gallstones Dislocation of humerus, inferior, closed Late effect of Adan's syndrome Aspiration of food Chronic static encephalopathy Autism Surgical History History of laparoscopic cholecystectomy H/O esophagogastroduodenoscopy History of dental surgery Family History Father Diabetes Heart attack Kidney disease Stroke Mother Diabetes Grandmother Diabetes Grandfather Diabetes Social History Smoking Status: Never smoker alcohol intake: never substance use type: denies use current occupational status: disabled Travel in the last 8 weeks?: None household members: other details: sister housing: house Have you lived/traveled outside [place] in past 30 days?: No Contact w/someone who lives/traveled outside [place] past 30 days?: No Exposure to someone with infectious disease in past 14 days?: No Do you have a fever (greater than 100.4 F or 38 C)?: No Have you tested positive for COVID-19?: No Exposed to someone with COVID-19 in past 14 days?: No Do you have a sore throat?: No Do you have a cough?: No Do you have any weakness?: No Do you have any diarrhea?: No Are you experiencing any unusual bleeding?: No Do you have any muscle aches/pain?: No Do you have any abdominal pain?: No Are you experiencing loss of taste or smell?: No Other Medical History Have you received the Flu Vaccine for this season: No Have you received the Pneumonia Vaccine: No ROS Obtained: Yes Systems reviewed as appropriate & no additional complaints except as documented Physical Exam General General appearance: alert and in no apparent distress Comment: Alert, nonverbal at baseline Head Head exam: atraumatic Eye Eye exam: Present normal appearance ENT ENT exam: Present normal external ear exam Neck Neck exam: Present full ROM Chest Chest inspection: Present symmetric chest wall rise Respiratory Respiratory exam: Present normal lung sounds bilaterally; Absent respiratory distress, wheezes, stridor or accessory muscle use Cardiovascular Cardiovascular exam: Present regular rate and normal rhythm Abdominal Exam Abdominal exam: Present soft; Absent distention, tenderness, guarding or rebound Extremities Exam Extremities exam: Present normal inspection Neurological Exam Neurological exam: Present alert and other (Moving all extremities) Skin Skin exam: Present warm and dry Medical Decision Making Medical Records Screening: Per USPSTF and CDC recommendations, given the prevalence of disease in our region, it is our hospital?s policy to screen for HIV and viral Hepatitis for all patients aged 18 and over and those with ongoing risk factors. Damien Inquiry Pt receiving controlled substance: No Vital Signs: 04/03/25 11:06 04/03/25 11:20 04/03/25 12:13 Temperature 98.6 F Temperature Source Temporal Artery Scan Pulse Rate 73 72 Pulse Rate [Left Radial] 66 Respiratory Rate 20 Blood Pressure 137/81 127/79 Blood Pressure [Right Arm] 137/81 Blood Pressure Mean [Right Arm] 99 02 Sat by Pulse Oximetry 96 97 96 Oxygen Delivery Method Room Air Room Air Room Air Lab Data Lab Results 04/03/25 11:54: Urine Color Yellow, Urine Appearance Clear, Urine pH 5.5, Ur Specific [place] >= 1.030, Urine Protein Negative, Urine Glucose (UA) Negative, Urine Ketones Negative, Urine Blood Negative, Urine Nitrate Negative, Urine Bilirubin Negative, Urine Urobilinogen 0.2, Ur Leukocyte Esterase Negative, Urine RBC None, Urine WBC None, Ur Squamous Epith Cells Occasional, Urine Bacteria None Orders (Tests/Meds): ORDERS Category Date Time Status XR chest portable Stat Exams 04/03/25 11:29 Completed UA [Urinalysis and Microscopic] Stat Lab 04/03/25 11:54 Completed Medical Decision Narrative: Mague Marti a 59y female with a history of autism, Rayes syndrome, UTI who presents to the emergency department for complaints of a week of increased cough and rattling in the chest. Sister is small electric engine technician and provides history. She states that she has had a mild nonproductive cough and rattling in her chest and is concerned she might have a pneumonia. She also notes that her urine has had increased green discharge, which is what happens in the past when she has urinary tract infections. She does not think that she has had any fevers. She said she has been a little more fatigued than normal but otherwise in her normal state of health. She has had multiple diagnoses and admissions for pneumonia and UTI in the past and wants to make sure that she does not get septic. On arrival, patient is afebrile, heart rate within normal limits, normotensive, oxygen saturation 96% on room air. Physical exam, as stated above, reveals a female in no distress. She is nonverbal at baseline. She is moving all extremities. Cardiopulmonary exam reveals no wheezing, rales or rhonchi. Abdomen is soft, nontender nondistended. Differential diagnosis includes, but is not limited to: Pneumonia, bronchitis, atypical pneumonia, urinary tract infection. Given patient's reassuring vital signs and physical exam, have low concern for sepsis. Lab work was considered, however do not feel that it would change ED management at this time and family is in agreement with plan to obtain chest x-ray as well as urine studies. Urinalysis without evidence of infection. Chest x-ray was interpreted by me personally and shows no focal consolidation, no pneumothorax, no widening of the mediastinum. Unremarkable chest x-ray. On reassessment, patient rosalva in stable condition. It is possible that she has bronchitis versus atypical pneumonia. Will cover with Z-Jordi. Sister does state that she thinks the discharge could be from her urine but may be from her vagina and I encouraged her to follow-up with her PCP if it continues. I have low concern for infectious etiology as this discharge is reportedly malodorous and urine was clear and there was no discharge appreciated on her exam today. Return precautions were given. All questions were answered. She demonstrated understanding and was in agreement this plan. Patient was then discharged from the emergency department in stable condition Critical Care Critical Care Time Critical Care Time: No
[2025-04-03 12:06] LABS: Bilirubin,Urine Negative (Negative); Color,Urine YELLOW (Yellow); Glucose,Urine (UA) Negative (Negative); Ketones,Urine Negative (Negative); Leukocyte Esterase,Urine Negative (Negative); Microscopic, Urine URINE MICROSCOPIC (MICROSCOPIC); PH,Urine 5.5 (5.0-8.5); Protein,Urine Negative (Negative); Specific Gravity, Urine >= 1.030 (1.005-1.030); Urobilinogen,Urine 0.2 EU/dl (0.2)
[2025-04-03 12:13] VITALS: BP 127/79; PULSE 72; O2SAT 96
[2025-04-03 12:25] LABS: Squamous Epithelial Cell,Urine Occasional #/hpf (0-5)
[2025-04-03 12:56] VITALS: BP 127/79; PULSE 80; RESP 20; TEMP 36.7; O2SAT 98
== END 2025-04-03 12:57 | disposition home or self-care (01) ==
PROVIDERS: Emergency Provider Student in an Organized Health Care Education/Training Program; PCP Family Medicine
DX: R05.1 Acute cough (principal)
CPT/HCPCS: 71045; 81001; 99283; 99284